=== PATIENT | female | born 1955 | race Caucasian/White ===

== ENCOUNTER → 2020-12-11 12:33 | Outpatient (BNVA) | payer MEDICARE, OTHER, SELFPAY | PROVIDERS: PCP Physician Assistant; Visit Provider Orthopaedic Surgery | DX: M76.31 Iliotibial band syndrome, right leg (principal) | CPT/HCPCS: 99202 ==

== ENCOUNTER 2020-12-13 11:20 | Outpatient (REF) | payer MEDICARE, BC, OTHER, SELFPAY ==
--- NOTE | ~2020-12-13 | US_ITS ---
EXAMINATION: US RETROPERITONEAL LIMITED (RENAL ONLY) CLINICAL INFORMATION: Renal stone. COMPARISON: Ultrasound renal 06/13/2020 and 05/16/2020. X-ray KUB 05/31/2020 and 04/26/2020. CT abdomen pelvis 10/25/2019. TECHNIQUE: Real-time imaging of the kidneys. FINDINGS: RIGHT KIDNEY: 10.2 x 4.8 x 5.9 cm (SAG x AP x TRV). The kidney is normal in size, contour, and echogenicity. Renal cortical thickness is normal. No calculi or focal parenchymal lesions. No hydronephrosis. LEFT KIDNEY: 10.0 x 5.2 x 4.4 cm (SAG x AP x TRV). The kidney is normal in size, contour, and echogenicity. Renal cortical thickness is normal. No focal parenchymal lesions or hydronephrosis. There is an echogenic stone midpole measuring 0.5 x 0.3 x 0.6 cm. There is mild caliectasis. US/US renal BI IMPRESSION: Small echogenic stone midpole left kidney measuring 0.6 cm. Mild caliectasis.
== END 2020-12-13 11:21 | disposition home or self-care (01) ==
LOC: HO.US 11:20
PROVIDERS: Visit Provider Urology
DX: N20.0 Calculus of kidney (principal)
CPT/HCPCS: 76775

== ENCOUNTER → 2020-12-26 11:10 | Outpatient (BNVA) | payer MEDICARE, OTHER, SELFPAY | PROVIDERS: Visit Provider Urology | DX: Z13.89 Encounter for screening for other disorder (principal) | CPT/HCPCS: 99212 ==

== ENCOUNTER 2020-12-28 09:00 | Outpatient (RCR) | payer MEDICARE, BC, OTHER, SELFPAY | END 2021-01-22 08:19 | disposition other institution (70) | LOC: HO.PTWFD 09:00 | PROVIDERS: PCP Physician Assistant; Visit Provider Orthopaedic Surgery | DX: M76.31 Iliotibial band syndrome, right leg (principal) | CPT/HCPCS: 97110; 97140; 97161; 97530; 97535 ==

== ENCOUNTER 2021-01-17 06:05 | Day surgery (SDC) | payer MEDICARE, BC, OTHER, SELFPAY ==
[2021-01-11 13:37] VITALS: BMI 27.4
--- NOTE | 2021-01-16 10:56 | HO.ANESPROP2 ---
Documented by User: Shannon Johnson 01/16/21 10:58 HPI - Anesthesia Eval Consult details Narrative: 65yo F for L ESWL Last ESWL 05/2020 with DEISY LOO Active Problems Active Problems: All Active Problems (Updated 01/11/21 @ 13:33 by Trina Bailey) Renal stones (Acute) Iliotibial band syndrome, right leg (Acute) Past Medical History Medical History Arthritis History of ARDS History of kidney stones Iliotibial band syndrome, right leg Osteoarthritis of right patellofemoral joint Renal stones Restless leg syndrome Retained ureteral stent Family History Family History Father No problems noted. Mother No problems noted. Surgical History Surgical History History of cholecystectomy Hx of colonoscopy Hx of left breast biopsy Hx of lithotripsy Social History Social History Smoking Status: Former smoker Smoking Quit Date: Years ago Use of substances other than those prescribed or required for medical reasons: No Advance Directives: No Advance Directives Information Provided: No Advance Directives on File: No Recently lost weight without trying: No Current occupational status: retired [employer] Allergies Allergy/AdvReac Type Severity Reaction Status Date / Time No Known Allergies Allergy Unverified 01/11/21 13:35 [No Known Allergies*] Home Medications Medication Instructions Recorded Confirmed Last Taken Type pregabalin 25 mg capsule 25 mg PO BEDTIME 12/11/20 01/11/21 Unknown History pregabalin 75 mg capsule 75 mg PO BID 12/26/20 01/11/21 Unknown History Exam Exam Date and Time: January 16, 2021 1056 Height,Weight and Vital Signs: Height 5 ft 4 in Weight 72.575 kg Assessment and Plan Assessment Anesthesia Assessment: Chart Reviewed Documented by User: Deysi Nicholas 01/17/21 06:57 [facility] Past Medical History Medical History Arthritis History of ARDS History of kidney stones Iliotibial band syndrome, right leg Osteoarthritis of right patellofemoral joint Renal stones Restless leg syndrome Retained ureteral stent Family History Family History Father No problems noted. Mother No problems noted. Surgical History Surgical History History of cholecystectomy Hx of colonoscopy Hx of left breast biopsy Hx of lithotripsy Social History Social History Smoking Status: Former smoker Smoking Quit Date: Years ago Use of substances other than those prescribed or required for medical reasons: No Advance Directives: No Advance Directives Information Provided: No Advance Directives on File: No Recently lost weight without trying: No Current occupational status: retired Meds Allergies Allergy/AdvReac Type Severity Reaction Status Date / Time No Known Allergies Allergy Unverified 01/11/21 13:35 [No Known Allergies*] Home Medications Medication Instructions Recorded Confirmed Last Taken Type pregabalin 25 mg capsule 25 mg PO BEDTIME 12/11/20 01/11/21 Unknown History pregabalin 75 mg capsule 75 mg PO BID 12/26/20 01/11/21 Unknown History Exam Airway Mallampati Class: II TM Dist: >3cm Neck ROM: Full Assessment and Plan Assessment Anesthesia Assessment: Anesthesia Plan Discussed and Chart Reviewed Final Anesthetic Review NPO: Yes ASA Class: II Final Preanesthetic Review: No Changes in Pt Med Stat, Meds/Allgs Chart Reviewed, Consent Obtained/Reviewed and Anes Risks/Benef Reviewed Patient Risk: Low Procedure Risk: Low Anesthetic Plan Anesthetic Plan: MAC: Disposition: Standard PACU
--- NOTE | ~2021-01-17 | XR_ITS ---
EXAMINATION: XR ABDOMEN KUB CLINICAL INDICATION: Nephrolithiasis COMPARISON: 05/31/2020 and 12/13/2020 TECHNIQUE: AP view of the abdomen. FINDINGS: There is a 0.5 cm calcification overlying the midpole of the left kidney. This corresponds to the appearance on ultrasound. Right upper quadrant surgical clips. Nonobstructive bowel gas pattern. Phleboliths overlie the pelvis. Degenerative changes throughout the spine. XR/XR KUB IMPRESSION: 0.5 cm calcification over the mid pole of the left kidney corresponding to the appearance of the calculus on prior.
[2021-01-17 06:34] VITALS: BP 135/75; PULSE 64; RESP 20; TEMP 36.3; O2SAT 96
[2021-01-17] MEDS: Lactated Ringers 1,000 ML 100 ML IVCONT (06:40)
--- NOTE | 2021-01-17 07:36 | MHC.SHP ---
Pre-Procedural Eval Section A The patient is an INPATIENT: No Changes since office visit: No Cold of Flu in the past 2 weeks, No New Medical Problems, No Changes in Medication and No Patient answered all questions The History & Physical has been completed within 30 days and I have reviewed it.: Yes Section B Chief Complaint: kidney stone Allergies: Allergies Allergy/AdvReac Type Severity Reaction Status Date / Time No Known Allergies Allergy Unverified 01/11/21 13:35 [No Known Allergies*] Plan Diagnosis/Plan: Unchanged (Left ESWL ) I have reviewed the history and physical and performed a pertinent physical examination on my patient. No changes have occurred unless specified.
--- NOTE | 2021-01-17 07:45 | W.PM.OPN ---
Operative Note Operative Note Date of Service: 01/17/21 Narrative: PreOperative Diagnosis: Left Renal stones Post Operative Diagnosis: Renal stones Procedure: Left ESWL Surgeon: Dr Gilles Banks Anesthesia: mac/sedation Indications for procedure: They understand ESWL may be a staged procedure and subsequent intervention may be required based on imaging after ESWL. They also understand there is a risk of bleeding, infection, damage to adjacent organs. Procedure: After informed consent was verified the patient was brought to the operating room and placed in a supine position. Anesthesia was performed per protocol. Safety pause time-out was performed. Imaging was in the room and laterality confirmed. US confirmed stone on left side ESWL was performed. The 1st 500 shocks were performed at 60 hertz. These were performed with increasing power. Once maximum power was reached the rate was increased to 180 hertz. A total of 2500 shocks were given. Fluoroscopy showed stone disintegration. They tolerated procedure well and was transferred to the recovery area upon completion.
[2021-01-17 08:14] VITALS: BP 126/69; PULSE 58; RESP 16; TEMP 36.2; O2SAT 96
[2021-01-17 08:30] VITALS: BP 138/78; PULSE 54; RESP 16; TEMP 36.2; O2SAT 97
[2021-01-17] MEDS: Acetaminophen 325 MG TABLET 650 MG PO (08:38)
[2021-01-17] MEDS: Phenazopyridine HCL 100 MG TABLET PO (08:39)
== END 2021-01-17 09:30 | disposition home or self-care (01) ==
PROVIDERS: PCP Physician Assistant; Visit Provider Urology
PROC: (CPT 50590; principal; 2021-01-17 07:30)
DX: N20.0 Calculus of kidney (principal); Z87.442 Personal history of urinary calculi; Z96.0 Presence of urogenital implants; M76.31 Iliotibial band syndrome, right leg; Z87.891 Personal history of nicotine dependence; Z79.899 Other long term (current) drug therapy
CPT/HCPCS: 50590; 74018; J1885; J2405; J3010

== ENCOUNTER 2021-02-01 10:04 | Outpatient (REF) | payer MEDICARE, BC, OTHER, SELFPAY ==
--- NOTE | ~2021-02-01 | US_ITS ---
EXAMINATION: US RETROPERITONEAL LIMITED (RENAL ONLY) CLINICAL INFORMATION: Calculus of kidney. COMPARISON: KUBs dated 01/17/2021 and 05/31/2020. Renal ultrasound dated 12/13/2020. Renals only ultrasound dated 06/13/2020. CT abdomen and pelvis without contrast dated 10/25/2019. TECHNIQUE: Real-time imaging of the kidneys. FINDINGS: RIGHT KIDNEY: 10.4 x 5.1 x 7.0 cm (SAG x AP x TRV). The kidney is normal in size, contour, and echogenicity. Renal cortical thickness is normal. No calculi or focal parenchymal lesions. No hydronephrosis. LEFT KIDNEY: 10.0 x 4.6 x 4.9 cm (SAG x AP x TRV). The kidney is normal in size, contour, and echogenicity. Renal cortical thickness is normal. There is a 5 mm nonobstructing mid pole calculus and a 2 mm nonobstructing lower pole calculus. There is mild caliectasis without hydronephrosis, unchanged. US/US renal BI IMPRESSION: Tiny nonobstructing calculi of the left kidney. Unchanged caliectasis of the left kidney.
== END 2021-02-01 10:05 | disposition home or self-care (01) ==
LOC: HO.US 10:04
PROVIDERS: Visit Provider Urology
DX: N20.0 Calculus of kidney (principal)
CPT/HCPCS: 76775

== ENCOUNTER → 2021-02-07 08:54 | Outpatient (BNVA) | payer MEDICARE, BC, OTHER, SELFPAY | PROVIDERS: PCP Physician Assistant; Visit Provider Urology | DX: N20.0 Calculus of kidney (principal) | CPT/HCPCS: Q3014 ==

== ENCOUNTER 2021-06-06 06:57 | Outpatient (REF) | payer MEDICARE, BC, OTHER, SELFPAY ==
[2021-06-06 08:59] LABS: Hematocrit 39.4 % (37-47); Hemoglobin 12.9 g/dl (12.0-16.0); Mean Corpuscular HGB Conc 32.7 g/dl (31.0-35.0); Mean Corpuscular Hemoglobin 29.6 pg (27.0-33.0); Mean Corpuscular Volume 90.4 fL (80-98); Mean Platelet Volume 11.1 fL (9.4-12.3); Platelet Count 327 X10*3/uL (160-400); Red Blood Count 4.36 X10*6/uL (4.20-5.50); Red Cell Distribution Width 13.1 % (11.0-16.0); White Blood Count 7.2 X10*3/uL (4.8-10.8)
[2021-06-06 09:33] LABS: Alanine Aminotransferase 26 U/L (0-31); Albumin Level 4.3 g/dL (3.5-5.0); Alkaline Phosphatase 104 U/L (39-117); Anion Gap 12 (12-20); Aspartate Amino Transferase 21 U/L (5-31); Bilirubin Total 0.4 mg/dL (0.0-1.0); Blood Urea Nitrogen 20 mg/dL (9-16); Calcium 9.6 mg/dL (8.4-10.2); Carbon Dioxide 28 mmol/L (22-29); Chloride 106 mmol/L (96-108); Cholesterol 214 mg/dL; Estimated Glomerular Filt Rate > 60; Glucose Fasting 93 mg/dL (60-99); HDL Cholesterol 64 mg/dL; LDL Cholesterol Calculated 127 mg/dl; Potassium 4.6 mmol/L (3.3-5.1); Sodium 141 mmol/L (135-145); Triglycerides 119 mg/dL
[2021-06-06 10:03] LABS: TSH reflex Free T4 1.82 uIU/mL (0.32-4.0)
[2021-06-06 10:04] LABS: Estimated Average Glucose 100 mg/dL; Hemoglobin A1c % 5.1 %
== END 2021-06-06 06:58 | disposition home or self-care (01) ==
LOC: HO.LAB 06:57
PROVIDERS: PCP Physician Assistant; Visit Provider Physician Assistant
DX: Z12.11 Encounter for screening for malignant neoplasm of colon (principal); Z13.220 Encounter for screening for lipoid disorders; Z13.29 Encounter for screening for other suspected endocrine disorder; I10 Essential (primary) hypertension
CPT/HCPCS: 36415; 80053; 80061; 83036; 84443; 85027

== ENCOUNTER 2021-06-22 09:41 | Outpatient (REF) | payer MEDICARE, BC, OTHER, SELFPAY ==
--- NOTE | ~2021-06-22 | MM_ITS ---
EXAMINATION: BONE DENSITOMETRY CLINICAL INDICATION: Menopause. COMPARISON: This is the patient's baseline examination. TECHNIQUE: Using a [employer] DXA System (software version: 13.1) manufactured by [employer], dual-energy x-ray absorptiometry was performed of the lumbar spine and left hip. The images are of good technical quality. Summary results are attached. FINDINGS: AP SPINE L1-L2 (excluding L3 and L4): The data of L1-L4 has been changed to exclude the L3 and L4 vertebral bodies, because degenerative changes at these levels may cause overestimation of lumbar spine density. BMD 1.146 g/cm2, Z-score 1.3, T-score -0.2, normal. LEFT FEMUR, NECK: BMD 0.792 g/cm2, Z-score -0.3, T-score -1.8, osteopenia. LEFT FEMUR, TOTAL: BMD 0.813 g/cm2, Z-score -0.3, T-score -1.5, osteopenia. IDENTIFIED RISK FACTORS: Menopause, height loss, osteoporosis. HISTORY OF FRACTURE: None listed. MEDICATIONS: None listed. MM/XR DEXA axial skeleton IMPRESSION: 1. DIAGNOSIS: Osteopenia based on the lowest T-score value of -1.8 in the femoral neck applying World Health Organization criteria. 2. 10-YEAR FRACTURE RISK PREDICTION, FRAX: Major osteoporotic fracture (clinical spine, forearm, hip or shoulder) 10.3%. Hip fracture 1.5%. 3. Treatment Recommendations: NOF guidelines recommend consideration for treatment in postmenopausal women and men age 50 and older presenting with the following: -A hip or vertebral (clinical or morphometric) fracture. -T-score less than or equal to -2.5 at the femoral neck or spine after appropriate evaluation to exclude secondary causes. -Low bone mass at the hip or spine and a 10-year fracture probability by FRAX of greater than or equal to 3% for hip fracture or greater than or equal to 20% for major osteoporotic fracture based on the [place] adapted WHO algorithm. 4. Other Recommendations: All treatment decisions require clinical judgment and consideration of individual patient factors, including patient preferences, comorbidities, previous drug use, risk factors not captured in the FRAX model (e.g. frailty, falls, vitamin D deficiency, increased bone turnover, interval significant decline in bone density) and possible under or overestimation of fracture risk by FRAX. Additional medical evaluation for secondary cause of low bone mineral density may be appropriate. FUTURE SCAN RECOMMENDATION: People with diagnosed cases of osteoporosis or at high risk for fracture should have regular bone mineral density tests. For patients eligible for Medicare, routine testing is allowed once every 2 years. The testing frequency can be increased to one year for patients who have rapidly progressing disease, those who are receiving or discontinuing medical therapy to restore bone mass, or have additional risk factors.
== END 2021-06-22 09:42 | disposition home or self-care (01) ==
LOC: HO.MAMMO 09:41
PROVIDERS: PCP Physician Assistant; Visit Provider Physician Assistant
DX: Z13.820 Encounter for screening for osteoporosis (principal); M85.80 Other specified disorders of bone density and structure, unspecified site; Z78.0 Asymptomatic menopausal state
CPT/HCPCS: 77080

== ENCOUNTER 2021-07-11 07:31 | Outpatient (REF) | payer MEDICARE, BC, OTHER, SELFPAY ==
--- NOTE | ~2021-07-11 | XR_ITS ---
EXAMINATION: XR CHEST CLINICAL INFORMATION: Cough. COMPARISON: None TECHNIQUE: 2 views of the chest were obtained. FINDINGS: The lungs are well-expanded and clear of acute process. The heart size and pulmonary vascularity is normal. No gross bony abnormality seen except from mild dextroscoliosis mid dorsal spine. XR/XR chest 2V IMPRESSION: No acute cardiopulmonary process seen.
== END 2021-07-11 07:32 | disposition home or self-care (01) ==
LOC: HO.XRAY 07:31
PROVIDERS: PCP Physician Assistant; Visit Provider Physician Assistant
DX: U07.1 COVID-19 (principal); R05 Cough
CPT/HCPCS: 71046

== ENCOUNTER 2021-09-03 15:28 | Outpatient (REF) | payer MEDICARE, BC, OTHER, SELFPAY ==
--- NOTE | ~2021-09-03 | US_ITS ---
EXAMINATION: US SOFT TISSUE HEAD/NECK CLINICAL INFORMATION: Localized swelling, mass and lump, head. COMPARISON: None TECHNIQUE: Linear transducer de jesus-scale and color Doppler examination with attention to the region of the right forehead using a linear transducer. FINDINGS: No solid or cystic soft tissue abnormality is seen corresponding to palpable lesion. There is contour irregularity of the outer table of the skull in this region. US/US soft tiss head and/or neck IMPRESSION: No soft tissue abnormality seen. Focal contour irregularity of the outer table of the skull in this region.
== END 2021-09-03 15:29 | disposition home or self-care (01) ==
LOC: HO.US 15:28
PROVIDERS: PCP Physician Assistant; Visit Provider Nurse Practitioner Family
DX: R22.0 Localized swelling, mass and lump, head (principal)
CPT/HCPCS: 76536

== ENCOUNTER 2021-09-17 14:24 | Outpatient (REF) | payer MEDICARE, BC, OTHER, SELFPAY ==
--- NOTE | ~2021-09-17 | CT_ITS ---
CT FACIAL BONES WITHOUT IV CONTRAST CLINICAL INFORMATION: LOCALIZED SWELLING, MASS AND LUMP COMPARISON: None available. TECHNIQUE: CT acquisition of the maxillofacial region obtained without contrast. This CT examination was performed using dose optimization techniques as appropriate, variously including the following: *Automated exposure control *Adjustment of mA and/or kV according to patient size (this includes techniques or standardized protocols for targeted exams where dose is matched to indication/reason for exam; i.e. extremities or head) *Use of iterative reconstruction technique FINDINGS: The maxillary sinuses, sphenoid sinuses, ethmoid air cells, and frontal sinuses are clear. 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 Significant leftward deviation of the nasal septum with a leftward directed septal spur. Fovea ethmoidalis and olfactory grooves share a contiguous slope. The bony orbits are intact. A palpable marker has been placed on the anterior right frontal scalp where there is a small 4 mm sessile osteoma associated with the outer cortical table of the right frontal calvarium. Mastoid air cells and middle ear cavities are clear. The TMJs are unremarkable. There is no periapical disease. There are no significant soft tissue findings. CT/CT facial bones wo con IMPRESSION: - A palpable marker has been placed on the anterior right frontal scalp where there is a small 4 mm sessile osteoma associated with the outer cortical table of the right frontal calvarium. - Significant leftward deviation of the nasal septum with a leftward directed septal spur. - Partially imaged cervical spondylosis.
== END 2021-09-17 14:25 | disposition home or self-care (01) ==
LOC: HO.CT 14:24
PROVIDERS: PCP Physician Assistant; Visit Provider Nurse Practitioner Family
DX: D16.4 Benign neoplasm of bones of skull and face (principal); J34.2 Deviated nasal septum
CPT/HCPCS: 70486

== ENCOUNTER 2021-10-15 08:53 | Outpatient (REF) | payer MEDICARE, BC, OTHER, SELFPAY ==
--- NOTE | ~2021-10-15 | US_ITS ---
EXAMINATION: US RETROPERITONEAL LIMITED (RENAL ONLY) CLINICAL INFORMATION: Cyst of kidney. COMPARISON: Bilateral renal ultrasound dated 02/01/2021 and 12/13/2020. KUB dated 01/17/2021 and 05/31/2020. CT abdomen and pelvis without contrast dated 10/25/2019. TECHNIQUE: Real-time imaging of the kidneys. FINDINGS: RIGHT KIDNEY: 10.5 x 5.4 x 4.8 cm (SAG x AP x TRV). The kidney is normal in size, contour, and echogenicity. Renal cortical thickness is normal. No calculi or focal parenchymal lesions. No hydronephrosis. LEFT KIDNEY: 8.1 x 4.6 x 4.6 cm (SAG x AP x TRV). The kidney is normal in size, contour, and echogenicity. There is left renal cortical thinning or scarring. There are multiple left renal stones. The largest measure 4 mm in the mid and lower pole. No focal parenchymal lesions. There may be mild caliectasis similar to previous exam. US/US renal BI IMPRESSION: Left renal stones. Left renal cortical thinning or scarring and mild caliectasis similar to previous exam.
== END 2021-10-15 08:54 | disposition home or self-care (01) ==
LOC: HO.US 08:53
PROVIDERS: Visit Provider Urology
DX: N20.0 Calculus of kidney (principal)
CPT/HCPCS: 76775

== ENCOUNTER → 2021-11-05 08:28 | Outpatient (BNVA) | payer MEDICARE, BC, OTHER, SELFPAY | PROVIDERS: PCP Physician Assistant | DX: N20.0 Calculus of kidney (principal) | CPT/HCPCS: Q3014 ==

== ENCOUNTER 2022-01-09 12:30 | Outpatient (REF) | payer MEDICARE, BC, OTHER, SELFPAY ==
--- NOTE | ~2022-01-09 | US_ITS ---
EXAMINATION: US RETROPERITONEAL LIMITED (RENAL ONLY) CLINICAL INFORMATION: Calculus of kidney. COMPARISON: US retroperitoneal limited (renal only) 10/15/2021 and 02/01/2021. XR abdomen KUB 01/17/2021 and 05/31/2020. CT abdomen and pelvis without contrast 10/25/2019. TECHNIQUE: Real-time imaging of the kidneys. FINDINGS: RIGHT KIDNEY: 9.2 x 5.1 x 4.9 cm (SAG x AP x TRV). The kidney is normal in size, contour, and echogenicity. Renal cortical thickness is normal. No calculi or focal parenchymal lesions. No hydronephrosis. LEFT KIDNEY: 10.1 x 4.7 x 3.4 cm (SAG x AP x TRV). The kidney is normal in size, contour, and echogenicity. Renal cortical thickness is normal. No focal parenchymal lesions or hydronephrosis. There are multiple echogenic cyst nonobstructive stones. 1. Midpole stone measures 0.42 x 0.22 x 0.48 cm. 2. Lower pole stone measures 0.37 x 0.30 0 x 0.24 cm. 3. Stone in midpole measures 0.29 x 0.10 cm. 4. Echogenic stone in the midpole measures 0.66 x 0.65 x 0.56 cm. US/US renal BI IMPRESSION: There are multiple echogenic stones in the left kidney without caliectasis or hydronephrosis. The right kidney is unremarkable.
== END 2022-01-09 12:31 | disposition home or self-care (01) ==
LOC: HO.US 12:30
DX: N20.0 Calculus of kidney (principal)
CPT/HCPCS: 76775

== ENCOUNTER → 2022-02-04 08:57 | Outpatient (BNVA) | payer MEDICARE, BC, OTHER, SELFPAY | PROVIDERS: PCP Physician Assistant | DX: N20.0 Calculus of kidney (principal) | CPT/HCPCS: 99212 ==

== ENCOUNTER 2022-05-07 07:23 | Outpatient (REF) | payer MEDICARE, BC, OTHER, SELFPAY ==
[2022-05-07 07:57] LABS: Hematocrit 40.9 % (37.0-47.0); Hemoglobin 13.6 g/dl (12.0-16.0); Mean Corpuscular HGB Conc 33.3 g/dl (31.0-35.0); Mean Corpuscular Hemoglobin 29.9 pg (27.0-33.0); Mean Corpuscular Volume 89.9 fL (80.0-98.0); Mean Platelet Volume 10.7 fL (9.4-12.3); Platelet Count 315 X10*3/uL (160-400); Red Blood Count 4.55 X10*6/uL (4.20-5.50); Red Cell Distribution Width 12.9 % (11.0-16.0); White Blood Count 7.1 X10*3/uL (4.8-10.8)
[2022-05-07 08:14] LABS: Alanine Aminotransferase 21 U/L (0-31); Albumin Level 4.2 g/dL (3.5-5.0); Alkaline Phosphatase 95 U/L (39-117); Anion Gap 13 (12-20); Aspartate Amino Transferase 21 U/L (5-31); Bilirubin Total 0.4 mg/dL (0.0-1.0); Blood Urea Nitrogen 18 mg/dL (9-16); Calcium 9.1 mg/dL (8.4-10.2); Carbon Dioxide 23 mmol/L (22-29); Chloride 109 mmol/L (96-108); Cholesterol 206 mg/dL; Estimated Glomerular Filt Rate > 60; Glucose Fasting 93 mg/dL (60-99); HDL Cholesterol 55 mg/dL; LDL Cholesterol Calculated 121 mg/dl; Potassium 4.6 mmol/L (3.3-5.1); Sodium 140 mmol/L (135-145); Total Protein 6.9 g/dL (6.5-8.0); Triglycerides 150 mg/dL
[2022-05-07 08:56] LABS: Urine Cytology See Pathology rpt
== END 2022-05-07 07:24 | disposition home or self-care (01) ==
LOC: HO.LAB 07:23
PROVIDERS: PCP Physician Assistant; Visit Provider Physician Assistant
DX: Z13.29 Encounter for screening for other suspected endocrine disorder (principal); R31.9 Hematuria, unspecified; E78.1 Pure hyperglyceridemia
CPT/HCPCS: 36415; 80053; 80061; 84443; 85027; 88112

== ENCOUNTER 2022-05-10 11:53 | Outpatient (REF) | payer MEDICARE, BC, OTHER, SELFPAY ==
--- NOTE | ~2022-05-10 | XR_ITS ---
EXAMINATION: XR CERVICAL SPINE CLINICAL INFORMATION: Muscular strain. COMPARISON: Radiograph of the cervical spine 04/20/2016. TECHNIQUE: 3 views of the cervical spine were obtained. FINDINGS: Nonspecific straightening of the normal cervical lordosis. Minimal anterolisthesis of C2 on C3 and C3 on C4, unchanged. Otherwise, anatomic alignment. No acute compression deformity. The atlantoaxial and atlantooccipital articulations are maintained. Moderate multilevel cervical spondylosis leading to variously degrees of neural foraminal encroachment, progressed since 2016. No prevertebral soft tissue thickening. Imaged lung apices are clear. XR/XR cervical spine 4V IMPRESSION: No acute fracture or subluxation. Similar straightening of the cervical lordosis and mild anterolisthesis when compared to 2016. Progression of cervical spondylosis when compared to 2016. If indicated, correlation with an MR of the cervical spine could be obtained to further assess for nerve root impingement and canal narrowing.
== END 2022-05-10 11:54 | disposition home or self-care (01) ==
LOC: HO.XRAY 11:53
PROVIDERS: PCP Physician Assistant; Visit Provider Physician Assistant
DX: S16.1XXD Strain of muscle, fascia and tendon at neck level, subsequent encounter (principal)
CPT/HCPCS: 72050

== ENCOUNTER 2022-07-16 09:55 | Outpatient (REF) | payer MEDICARE, BC, OTHER, SELFPAY ==
--- NOTE | ~2022-07-16 | US_ITS ---
EXAMINATION: US RETROPERITONEAL LIMITED (RENAL ONLY) CLINICAL INFORMATION: Calculus of kidney. COMPARISON: Renal ultrasound 01/09/2022 and 10/15/2021. X-ray abdomen KUB 01/17/2021. CT abdomen and pelvis 10/25/2019. TECHNIQUE: Real-time imaging of the kidneys. FINDINGS: RIGHT KIDNEY: 10.4 x 4.8 x 5.2 cm (SAG x AP x TRV). The kidney is normal in size, contour, and echogenicity. Renal cortical thickness is normal. No calculi or focal parenchymal lesions. No hydronephrosis. LEFT KIDNEY: 9.4 x 4.7 x 3.6 cm (SAG x AP x TRV). The kidney is normal in size, contour, and echogenicity. There is left renal cortical thinning or scarring in the midpole that appears unchanged. There are 2 stones measuring 6 x 2 x 3 mm in the midpole and 2 mm in the upper pole. No focal parenchymal lesions or hydronephrosis. US/US renal BI IMPRESSION: Left renal stones. Normal right kidney.
== END 2022-07-16 09:56 | disposition home or self-care (01) ==
LOC: HO.US 09:55
DX: N20.0 Calculus of kidney (principal)
CPT/HCPCS: 76775

== ENCOUNTER → 2022-08-07 09:52 | Outpatient (BNVA) | payer MEDICARE, BC, OTHER, SELFPAY | PROVIDERS: PCP Physician Assistant; Visit Provider Urology | DX: N20.0 Calculus of kidney (principal) | CPT/HCPCS: Q3014 ==

== ENCOUNTER → 2022-10-21 08:20 | Outpatient (REF) | payer MEDICARE, BC, OTHER, SELFPAY ==
--- NOTE | 2022-10-21 08:26 | CA_ITS ---
Acquisition Time: 2022-10-21 08:36:45 Total Exercise Time: 00:05:01 Test Indications: CHEST PAIN Medications: Protocol: LUBA Max HR: 162 BPM 107% of Pred: 151 BPM Max BP: 158/072 mmHG Max Work Load: 7.0 METS Exercise stress test with Exercise 5 min 1 sec of Luba protocol, achieving 107% MPHR, 7 METs, with mild sob, no chest discomfort, with isolated PVCs and PACs, with normotensive response to exercise, without EKG changes meeting criteria for ischemia.Test reviewed with Dr Boyd Referred By: Francesco Mcdonough Overread By: MARI FARRAR
== END ==
LOC: HO.CARD 08:20
PROVIDERS: PCP Physician Assistant; Visit Provider Physician Assistant
DX: R07.9 Chest pain, unspecified (principal)
CPT/HCPCS: 93017

== ENCOUNTER 2022-10-30 11:35 | Outpatient (REF) | payer MEDICARE, BC, OTHER, SELFPAY ==
--- NOTE | ~2022-10-30 | XR_ITS ---
EXAMINATION: XR ABDOMEN KUB CLINICAL INDICATION: Renal calculus. COMPARISON: Renal ultrasound dated 07/16/2022; KUB dated 01/17/2021. TECHNIQUE: 2 AP views of the abdomen and pelvis are submitted. FINDINGS: The bowel gas pattern is normal, with no evidence of ileus or obstruction. The previously demonstrated 5 mm left renal calculus is faintly redemonstrated, with imaging significantly limited by overlapping bowel contents. There are right upper quadrant surgical clips. No acute osseous abnormality is seen. There is a mild thoracolumbar levoscoliosis. XR/XR KUB IMPRESSION: The previously demonstrated 5 mm left renal calculus is faintly redemonstrated, with imaging significantly limited by overlapping bowel contents.
== END 2022-10-30 11:36 | disposition home or self-care (01) ==
LOC: HO.XRAY 11:35
PROVIDERS: PCP Physician Assistant; Visit Provider Urology
DX: N20.0 Calculus of kidney (principal)
CPT/HCPCS: 74018

== ENCOUNTER → 2022-11-06 08:40 | Outpatient (BNVA) | payer MEDICARE, BC, OTHER, SELFPAY | PROVIDERS: PCP Physician Assistant; Visit Provider Urology | DX: N20.0 Calculus of kidney (principal) | CPT/HCPCS: Q3014 ==

== ENCOUNTER → 2022-11-18 08:04 | Outpatient (BNVA) | payer MEDICARE, BC, OTHER, SELFPAY | PROVIDERS: PCP Physician Assistant; Referring Provider Physician Assistant; Visit Provider Physician Assistant | DX: Z01.818 Encounter for other preprocedural examination (principal); K21.9 Gastro-esophageal reflux disease without esophagitis; Z79.899 Other long term (current) drug therapy | CPT/HCPCS: 99202 ==

== ENCOUNTER 2022-12-11 06:27 | Day surgery (SDC) | payer MEDICARE, BC, OTHER, SELFPAY ==
[2022-12-06 12:50] VITALS: BMI 25.5
--- NOTE | 2022-12-10 12:23 | P.CONAN_ITS ---
Documented by User: Shannon Johnson NP 12/10/22 12:35 HPI - Anesthesia Eval Consult details Narrative: 67yo F for Left ESWL s/p ESWL 01/2021 with [facility] Active Problems Active Problems: All Active Problems (Updated 12/06/22 @ 12:50 by Emely Pemberton RN) RLS (restless legs syndrome) (Acute) Cough (Acute) Head lump (Acute) Screening for diabetes mellitus (DM) (Acute) Screening for hypothyroidism (Acute) Cervical myofascial strain (Acute) Kidney stone on left side (Acute) Screening for colon cancer (Acute) Adult general medical exam (Acute) Chest pain (Acute) GERD (gastroesophageal reflux disease) (Acute) Hypertriglyceridemia (Acute) Renal stones (Acute) Iliotibial band syndrome, right leg (Acute) Past Medical History Medical History (Updated 12/06/22 @ 12:50 by Emely Pemberton RN) Allergic rhinitis COVID-19 History of ARDS History of kidney stones Hypertriglyceridemia Iliotibial band syndrome, right leg Osteoarthritis of right patellofemoral joint Preop exam for internal medicine Renal stones Restless leg syndrome Retained ureteral stent Family History Family History Father No problems noted. Mother No problems noted. Surgical History Surgical History (Updated 12/06/22 @ 12:44 by Emely Pemberton RN) History of cholecystectomy Hx of colonoscopy Hx of left breast biopsy Hx of lithotripsy Social History Social History Housing: House Alcohol intake: current Patient Tobacco Use Status: Former Tobacco user Years Smoked: quit 1999 e-Cigarette/Vaping Use: Never Used Use of substances other than those prescribed or required for medical reasons: No Are you DNR?: No Advance Directives: No Advance Directives Information Provided: Yes Recently lost weight without trying: No Nutrition Risks: No Nutritional Risk service: No Current occupational status: retired Cognitive needs: No Hearing needs: No Vision needs: No Meds Allergies Allergy/AdvReac Type Severity Reaction Status Date / Time No Known Allergies Allergy Verified 11/18/22 08:13 [No Known Allergies*] Home Medications Medication Instructions Recorded Confirmed Last Taken Type acetaminophen 325 mg capsule 325 mg PO QID PRN Pain 06/19/21 12/06/22 Unknown History (Tylenol) diclofenac sodium 1 % topical gel 4 g topical QID 11/18/22 12/06/22 Unknown History omeprazole 20 mg capsule,delayed 20 mg PO DAILY 12/11/22 12/11/22 12/11/22 History release Exam Exam Date and Time: December 10, 2022 1223 Height,Weight and Vital Signs: Height 5 ft 4 in Weight 67.585 kg Pertinent Lab Results Pertinent Lab Results: Laboratory Tests 05/07/22 05/07/22 07:38 07:38 WBC 7.1 Hgb 13.6 Hct 40.9 Plt Count 315 Sodium 140 Potassium 4.6 Chloride 109 H Carbon Dioxide 23 BUN 18 H Creatinine 0.90 Narrative Narrative: Stress 10/2022 Protocol: DELON ? Max HR: 162 BPM? 107% of? Pred: 151 BPM Max BP: 158/072 mmHG Max Work Load: 7.0 METS ? Exercise stress test with Exercise 5 min 1 sec of Delon protocol, achieving 107% ?MPHR, 7 METs, with mild sob, no chest discomfort, with isolated PVCs and PACs, ?with normotensive response to exercise, without EKG changes meeting criteria ?for ischemia.Test reviewed with Dr Boyd Assessment and Plan Assessment Anesthesia Assessment: Chart Reviewed Documented by User: Lonnie Rosenberg MD 12/11/22 07:44 [facility] Past Medical History Medical History (Updated 12/06/22 @ 12:50 by Emely Pemberton RN) Allergic rhinitis COVID-19 History of ARDS History of kidney stones Hypertriglyceridemia Iliotibial band syndrome, right leg Osteoarthritis of right patellofemoral joint Preop exam for internal medicine Renal stones Restless leg syndrome Retained ureteral stent Family History Family History Father No problems noted. Mother No problems noted. Family history of problems with anesthesia: No Surgical History Surgical History (Updated 12/06/22 @ 12:44 by Emely Pemberton RN) History of cholecystectomy Hx of colonoscopy Hx of left breast biopsy Hx of lithotripsy History of Problems with Anesthesia: No Social History Social History Housing: House Alcohol intake: current Patient Tobacco Use Status: Former Tobacco user Years Smoked: quit 1999 e-Cigarette/Vaping Use: Never Used Use of substances other than those prescribed or required for medical reasons: No Are you DNR?: No Advance Directives: No Advance Directives Information Provided: Yes Recently lost weight without trying: No Nutrition Risks: No Nutritional Risk service: No Current occupational status: retired Cognitive needs: No Hearing needs: No Vision needs: No Meds Allergies Allergy/AdvReac Type Severity Reaction Status Date / Time No Known Allergies Allergy Verified 11/18/22 08:13 [No Known Allergies*] Home Medications Medication Instructions Recorded Confirmed Last Taken Type acetaminophen 325 mg capsule 325 mg PO QID PRN Pain 06/19/21 12/06/22 Unknown History (Tylenol) diclofenac sodium 1 % topical gel 4 g topical QID 11/18/22 12/06/22 Unknown History omeprazole 20 mg capsule,delayed 20 mg PO DAILY 12/11/22 12/11/22 12/11/22 History release Exam Airway Mallampati Class: II Loose/Missing/Broken Teeth: No Heart: ok Lungs: ok Assessment and Plan Assessment Anesthesia Assessment: Anesthesia Plan Discussed and Chart Reviewed Final Anesthetic Review Family History of Problems with Anesthesia: No History of Problems with Anesthesia: No NPO: Yes ASA Class: II Final Preanesthetic Review: No Changes in Pt Med Stat, Meds/Allgs Chart Reviewe d, Consent Obtained/Reviewed and Anes Risks/Benef Reviewed Patient Risk: Low Procedure Risk: Low Anesthetic Plan Anesthetic Plan: MAC: and Agree w/ Assess. and Plan Disposition: Standard PACU
[2022-12-11] VITALS (7 sets, daily range): BP systolic 114–140; BP diastolic 60–72; PULSE 44–58; RESP 14–16; TEMP 35.9–36.5; O2SAT 96–100; BMI 25.7
--- NOTE | ~2022-12-11 | XR_ITS ---
EXAMINATION: XR ABDOMEN KUB CLINICAL INDICATION: Left renal calculus COMPARISON: KUB 10/30/2022, renal ultrasound 07/16/2022, CT abdomen and pelvis 10/25/2019 TECHNIQUE: AP x2 views of the abdomen. FINDINGS: The left renal calculi are not clearly visualized on plain film. There are no new visible urinary tract calculi. Surgical clips right upper quadrant from prior cholecystectomy. The lung bases are clear. There is levocurvature lumbar spine with multilevel degenerative disc changes again seen. XR/XR KUB IMPRESSION: The left renal calculi not clearly visualized on plain film.
[2022-12-11] MEDS: Acetaminophen 325 MG TABLET 975 MG PO (06:57)
[2022-12-11] MEDS: Lactated Ringers 1,000 ML 100 ML IVCONT (07:13)
--- NOTE | 2022-12-11 07:37 | P.HPSUR_ITS ---
Pre-Procedural Eval Section A Date of Service: 12/11/22 The patient is an INPATIENT: No Changes since office visit: No Cold of Flu in the past 2 weeks, No New Medical Problems, No Changes in Medication and No Patient answered all questions The History & Physical has been completed within 30 days and I have reviewed it.: Yes Section B Chief Complaint: Calculus of kidney Allergies: Allergies Allergy/AdvReac Type Severity Reaction Status Date / Time No Known Allergies Allergy Verified 11/18/22 08:13 [No Known Allergies*] Review of Systems Sugical H&P ROS: Negative: Constitution, Cardiovascular, Respiratory, Neurological, Psychiatric, Hem-Onc, Allergic/Immunologic, Gastrointestinal, Genitourinary, Musculoskeletal, Integumentary, Endocrine and Eyes/Ears/Nose/Throat Exam Surgical H&P Exam: Normal: HEENT, Normal: Heart, Normal: Lungs, Normal: Extr emities, Normal: Abdomen, Normal: Skin and Normal: Neurological Plan Diagnosis/Plan: Unchanged (left ESWL) I have reviewed the history and physical and performed a pertinent physical examination on my patient. No changes have occurred unless specified. Time Spent With Patient Time: Total time managing care of this patient today ____ minutes.
--- NOTE | 2022-12-11 07:37 | W.PM.OPN ---
Operative Note Operative Note Date of Service: 12/11/22 Narrative: PreOperative Diagnosis: Left Renal stones Post Operative Diagnosis: Left Renal stones Procedure: Left ESWL Surgeon: Dr Gilles Banks Anesthesia: mac/sedation Indications for procedure: The patient understands ESWL may be a staged procedure and subsequent intervention may be required based on imaging after ESWL. Quoted stone clearance rates for a solitary procedure are in the 70-80% range based primarily on stone location. They also understand there is a risk of bleeding to the kidney, infection, damage to adjacent organs, and stone migration following the procedure. - Imaging 5mm left stone midpole Procedure: After informed consent was verified the patient was brought to the operating room and placed in a supine position. Anesthesia was performed per protocol. Safety pause time-out was performed. Imaging was displayed in the room and laterality confirmed. Prehydration with 1L LR ESWL was performed. The 1st 500 shocks were performed at 60 hertz. These were performed with increasing power. Once maximum power was reached the rate was increased to 180 hertz. A total of 2500 shocks were given. 10mg Lasix given at midpoint of procedure. Targeted imaging with ultrasound/fluoroscopy showed stone smudging suggestive of disintegration. The patient tolerated the procedure well and was transferred to the recovery area upon completion. Post procedure imaging will be organized. There was no evidence for flank discoloration.
[2022-12-11] MEDS: Furosemide 20 MG TABLET PO (08:32)
== END 2022-12-11 10:08 | disposition home or self-care (01) ==
PROVIDERS: PCP Physician Assistant; Visit Provider Urology
PROC: (CPT 50590; principal; 2022-12-11 08:20)
DX: N20.0 Calculus of kidney (principal); Z87.442 Personal history of urinary calculi; Z96.0 Presence of urogenital implants; E78.1 Pure hyperglyceridemia; J30.9 Allergic rhinitis, unspecified; Z79.899 Other long term (current) drug therapy; Z90.49 Acquired absence of other specified parts of digestive tract; Z87.891 Personal history of nicotine dependence
CPT/HCPCS: 50590; 74018; J1885; J1940; J3010

== ENCOUNTER 2023-01-06 10:02 | Outpatient (REF) | payer MEDICARE, BC, OTHER, SELFPAY ==
--- NOTE | ~2023-01-06 | US_ITS ---
EXAMINATION: US RETROPERITONEAL LIMITED (RENAL ONLY) CLINICAL INFORMATION: Calculus of kidney. COMPARISON: X-ray abdomen KUB 12/11/2022 and 10/30/2022. Ultrasound retroperitoneal limited (renal only) 07/16/2022 and 01/09/2022. CT abdomen and pelvis 10/25/2019. TECHNIQUE: Real-time imaging of the kidneys. FINDINGS: RIGHT KIDNEY: 10.8 x 4.9 x 4.3 cm (SAG x AP x TRV). The kidney is normal in size, contour, and echogenicity. Renal cortical thickness is normal. No renal calculi or hydronephrosis. There is an anechoic cyst upper pole measuring 1.4 x 1.2 x 1.4 cm LEFT KIDNEY: 9.9 x 4.5 x 4.2 cm (SAG x AP x TRV). The kidney is normal in size, contour, and echogenicity. Renal cortical thickness is normal. No focal parenchymal lesions or hydronephrosis. There is an anechoic cyst in the midpole measuring 0.5 x 0.3 x 0.5 cm and upper pole measuring 0.5 x 0.3 cm. US/US renal BI IMPRESSION: Bilateral renal cysts. No echogenic stones or hydronephrosis.
== END 2023-01-06 10:03 | disposition home or self-care (01) ==
LOC: HO.US 10:02
PROVIDERS: PCP Physician Assistant; Visit Provider Urology
DX: N20.0 Calculus of kidney (principal)
CPT/HCPCS: 76775

== ENCOUNTER → 2023-01-22 09:47 | Outpatient (BNVA) | payer MEDICARE, BC, OTHER, SELFPAY | PROVIDERS: PCP Physician Assistant; Visit Provider Urology | DX: N20.0 Calculus of kidney (principal) | CPT/HCPCS: 99212 ==

== ENCOUNTER 2023-04-30 11:42 | Outpatient (AMB) | payer MEDICARE, BC, OTHER, SELFPAY ==
--- NOTE | 2023-04-30 11:49 | MHC.PC.OV ---
Vital Signs 04/30/23 11:50 Weight 152 lb 6 oz BP 110/68 Blood Pressure Location Lt brachial Position Sitting Pulse 66 Pulse Source Pulse Oximeter Pulse Oximetry (%) 95 Oxygen Delivery Method Room Air Intake Visit Reasons: f/u nephrolithiasis/ borderline high cholestero Deck Mate Required: No Accompanied by: Self / Same As Patient Allergies No Known Allergies [No Known Allergies*] Allergy (Verified 04/30/23 11:58) Medication List - Last Reconciled 04/30/23 by Francesco Mcdonough PA-C acetaminophen (Tylenol) 325 mg PO QID PRN diclofenac sodium 1% 4 grams topical QID pregabalin 75 mg PO DAILY 90 days pyridoxine (vitamin B6) 100 mg PO DAILY 90 days Tobacco use date assessed: 04/30/23 Fall risk assessment: No Falls in past year Last assessed Fall Risk: 04/30/23 Dental Screening Dental Screen Date: 04/30/23 Did you have a dental visit in the last 12 months?: Yes Did you have a dental problem in the last 6 months where you did not have access to dental care?: No Was dental information given to patient?: Patient has dentist HPI f/u nephrolithiasis/ borderline high cholestero HPI Details Patient is a 67-year-old female here today for follow-up visit.? Patient has a past medical history significant for nephrolithiasis, restless legs syndrome. Concern--> has chronic history cervical spine pain with myelopathy. She reports over last 2 weeks she has felt some stiffness and pain in her cervical spine. Has been doing home stretches in using [id number] analgesics. Reports neck pain has gotten better and is considering repeating physical therapy for her neck . Of note she does use tizanidine 2 mg on a p.r.n. basis usually at night for her neck pain. Nephrolithiasis:? Patient followed by Urology, under surveillance for her nephrolithiasis with ultrasounds of her kidneys. Most recent ultrasound without any evidence of nephrolithiasis RLS:? She continues Lyrica 75 mg daily with good effect on reducing her restless leg symptoms. .. Borderline high cholesterol: Patient continues to work on lifestyle modifications to reduce her borderline high cholesterol. Most recent cholesterol panel showing total cholesterol 206. Laboratory Tests 06/06/21 05/07/22 07:05 07:38 Cholesterol 214 206 LDL Cholesterol, C alc 121 PFSH Medical History Allergic rhinitis COVID-19 History of ARDS History of kidney stones Hypertriglyceridemia Iliotibial band syndrome, right leg Osteoarthritis of right patellofemoral joint Preop exam for internal medicine Renal stones Restless leg syndrome Retained ureteral stent Surgical History History of cholecystectomy Hx of colonoscopy Hx of left breast biopsy Hx of lithotripsy Family History Father No problems noted. Mother No problems noted. Social History Housing: House Alcohol intake: current Patient Tobacco Use Status: Former Tobacco user Years Smoked: quit 1999 e-Cigarette/Vaping Use: Never Used service: No Current occupational status: retired Cognitive needs: No Hearing needs: No Vision needs: No Questionnaire PHQ-9 Over the last 2 weeks, how often have you been bothered by any of the following problems? 1. Little interest or pleasure in doing things: not at all 2. Feeling down, depressed, or hopeless: not at all 3. Trouble falling or staying asleep, or sleeping too much: several days 4. Feeling tired or having little energy: not at all 5. Poor appetite or overeating: not at all 6. Feeling bad about yourself - or that you are a failure or have let yourself or your family down: not at all 7. Trouble concentrating on things, such as reading the newspaper or watching television: not at all 8. Moving or speaking so slowly that other people could have noticed. Or the opposite - being so fidgety or restless that you have been moving around a lot more than usual: not at all 9. Thoughts that you would be better off or of hurting yourself in some way: not at all Total score: 1 Depression Screening Interpretation: Negative 99421 - PHQ-9 Billing: Yes Source: Developed by Drs. Mian Johns, Michelle Baltazar, Owen Castellano and colleagues, with an educational mi from [employer] Thrive Questionnaire Date Thrive assessed: 04/30/23 I am a: Patient What is your living situation today?: I have a steady place to live Within the past 12 months, did the food you bought not last and you didn't have the money to get more?: Never true Within the past 12 months, did you worry whether your food would run out before you got money to buy more?: Never true Do you have trouble paying for medicines?: No Do you have trouble getting transportation to medical appointments?: No Do you have trouble paying your heating and electricity bill?: No Do you have trouble taking care of your child, family member or friend?: No Do you have trouble with day-to-day activities such as bathing, preparing meals, shopping, managing finances, etc.?: No Are you currently unemployed and looking for a job?: No Are you interested in more education?: No Please select the resources that you would like help with: None Currently or been in a relationship where the following occur: no concerns reported AUDIT C Alcohol Use Questionnaire (AUDIT-C) 1. How often do you have a drink containing alcohol?: Monthly or less 2. How many drinks containing alcohol do you have on a typical day when you are drinking?: 1 or 2 3. How often do you have six or more drinks on one occasion?: Never Total Score: 1 Score Reviewed/Action Taken: No GRETEL-7 AMB Questionnaire GRETEL-7 Date GRETEL - 7 assessed: 04/30/23 Feeling nervous, anxious, or on edge: 0 = Not at all Not being able to stop or control worryin = Not at all Worrying too much about different things: 0 = Not at all Trouble relaxin = Not at all Being so restless that it is hard to sit still: 0 = Not at all Becoming easily annoyed or irritable: 0 = Not at all Feeling afraid as if something awful might happen: 0 = Not at all Total GRETEL-7 score (0-4 normal; 5-9 mild; 10-14 moderate; 15-21 severe): 0 Source: Developed by Drs. Mian Johns, Michelle Baltazar, Owen Castellano and colleagues, with an educational mi from [employer] GRETEL-7 Assessment Billing GRETEL-7 Assessment Tool: GRETEL-7 Assessment [id number] Review of Systems Const Denies headache(s) Eyes Denies loss of vision ENT Denies vertigo, Denies dizziness, Denies headache(s) and Denies sore throat Card Denies chest pain, Denies leg edema and Denies lightheadedness Resp Denies cough, Denies hemoptysis and Denies wheezing GI Denies abdominal pain, Denies melena, Denies constipation, Denies diarrhea and Denies vomiting Denies urinary frequency, Denies dysuria and Denies urinary urgency Musc Denies arthralgias, Denies joint swelling, Denies numbness and Denies tingling Neuro Denies Abnormal speech present, Denies behavioral changes, Denies vertigo, Denies dizziness, Denies headache(s), Denies loss of vision, Denies memory loss, Denies numbness and Denies tingling Psych Denies anxiety, Denies behavioral changes, Denies depression, Denies memory loss and Denies panic attacks Soren/Lymph Denies easy bleeding and Denies easy bruising Aller/Immun Denies wheezing Physical exam (Primary Care) Vital Signs: Last Vital Signs Pulse 66 04/30/23 11:50 BP 110/68 04/30/23 11:50 Pulse Ox 95 04/30/23 11:50 Oxygen Delivery Method Room Air 04/30/23 11:50 Tobacco/Smoking Status: Tobacco use Status Tobacco use date assessed 04/30/23 04/30/23 11:55 Patient Tobacco Use Status Former Tobacco user 04/30/23 11:55 e-Cigarette/Vaping Use Never Used 04/30/23 11:55 PHQ-9: PHQ-9 Score PHQ-9: Total score 1 04/30/23 12:06 Depression Screening Interpretation: Negative Thrive Assessment: Date of Thrive Assessment Date Thrive assessed 04/30/23 04/30/23 11:55 Currently or been in a relationship where the following occur: no concerns reported Const General: healthy appearing, no acute distress, alert and awake Nutritional Appearance: well nourished Orientation/consciousness: oriented to person, oriented to place and oriented to time [facility] Head images: 1. SMALL FIRM LUMP OVER RIGHT UPPER FRONTAL ASPECT OF HEAD. Ears: TM's normal bilaterally General nose exam: Normal nasal mucous membranes and turbinates present Eyes Conjunctivae: conjunctivae normal Sclerae: sclerae normal Pupils: Equal, round and reactive pupils present Neck Neck: Yes no lymphadenopathy and Yes no JVD Thyroid: Thyroid normal Carotids: no bruits Resp Effort & Inspection: normal respiratory effort and not tachypneic Auscultation: no crackles, no rales, no rhonchi and no wheezes Cardio Rate: regular rate Rhythm: regular rhythm Heart sounds: no murmurs and normal S1 and S2 GI Palpation (GI): Soft to palpation, nontender, no hepatomegaly and no splenomegaly Auscultation: normal bowel sounds Skin General skin exam: no rashes or lesions noted and dry skin Neuro General: oriented to person, oriented to place and oriented to time Cranial nerves: Yes Equal, round and reactive pupils present Speech: No Abnormal speech present Gait exam (Neuro): Normal gait present Motor exam (neuro): no tremor noted Extrem Right upper extremity: full ROM Left upper extremity: full ROM Right lower extremity: full ROM; no edema Left lower extremity: full ROM; no edema Psych Mental Status: mental status grossly normal Speech and movement: Normal speech and movement present Affect: normal affect Attitude: cooperative Thought process: Normal thought process present Assessment and Plan Assessment & Plan (1) Hypertriglyceridemia: Code(s): E78.1 - Pure hyperglyceridemia Plan: Will continue to follow fasting lipid panel to evaluate triglycerides and total cholesterol. At this time patient continues to work on lifestyle modifications to reduce her cholesterol. (2) Kidney stone on left side: Code(s): N20.0 - Calculus of kidney Plan: Continues to follow Urology and is on surveillance renal ultrasounds. Most recent ultrasound without any evidence of nephrolithiasis. Has discontinued tamsulosin (3) RLS (restless legs syndrome): Code(s): G25.81 - Restless legs syndrome Plan: Was followed by Neurology and was started on pregabalin 75mg. Pregabalin has been very effective on reducing her wrists legs syndrome. 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 Has had CT head in the past did show an osteoma. Patient not bothered by the appearance and would like to monitor at this time. 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
[2023-04-30 11:50] VITALS: BP 110/68; PULSE 66; O2SAT 95
== END 2023-04-30 12:09 | disposition home or self-care (01) ==
PROVIDERS: PCP Physician Assistant; Visit Provider Physician Assistant
DX: E78.1 Pure hyperglyceridemia (principal); N20.0 Calculus of kidney; G25.81 Restless legs syndrome; D16.4 Benign neoplasm of bones of skull and face
CPT/HCPCS: 99214

== ENCOUNTER 2023-06-06 08:31 | Outpatient (REF) | payer MEDICARE, BC, OTHER, SELFPAY ==
--- NOTE | ~2023-06-06 | MM_ITS ---
EXAMINATION: MM SCREENING DIGITAL BREAST TOMOSYNTHESIS, BILATERAL CLINICAL INFORMATION: Screening. Asymptomatic. COMPARISON: Mammography: 09/03/2021, 05/22/2021, 06/09/2019, and 03/16/2018. ([facility] [place]) TECHNIQUE: Digital breast tomosynthesis is performed in both the craniocaudal and mediolateral oblique views along with computer-aided detection (CAD). Synthesized 2D images are generated from the tomosynthesis. FINDINGS: There are scattered areas of fibroglandular density (ACR BI-RADS breast composition Category b). There are mild vascular calcifications bilaterally. There is a potential focus of developing architectural distortion in the upper outer left breast, although this may be superimposition artifact of normal tissues. This is appreciated best on the tomographic images. Regardless, spot magnification 3-D views in the CC and MLO projections recommended. There are no additional suspicious findings in either breast. There are no skin or axillary abnormalities. MM/MM tomosynthesis screening BI IMPRESSION: Possible developing focus of architectural distortion upper outer LEFT breast, likely superimposition artifact, however spot compression views recommended for confirmation. No suspicious findings in the RIGHT breast. ASSESSMENT: BI-RADS BI-RADS 0 - Incomplete: Needs additional Imaging. RECOMMENDATION: 1. Additional views of the LEFT breast 2. Targeted ultrasound if warranted after review of the additional views. 3. Radiology department staff will contact the patient for additional imaging. Additional Imaging required This examination should not preclude the clinical evaluation of a suspicious palpable abnormality.
[2023-06-06 09:01] LABS: Hematocrit 41.5 % (37.0-47.0); Hemoglobin 14.2 g/dl (12.0-16.0); Mean Corpuscular HGB Conc 34.2 g/dl (31.0-35.0); Mean Corpuscular Hemoglobin 29.8 pg (27.0-33.0); Mean Corpuscular Volume 87.2 fL (80.0-98.0); Mean Platelet Volume 10.8 fL (9.4-12.3); Platelet Count 253 X10*3/uL (160-400); Red Blood Count 4.76 X10*6/uL (4.20-5.50); Red Cell Distribution Width 12.8 % (11.0-16.0); White Blood Count 7.1 X10*3/uL (4.8-10.8)
[2023-06-06 09:30] LABS: Alanine Aminotransferase 18 U/L (0-31); Albumin Level 4.4 g/dL (3.5-5.0); Alkaline Phosphatase 103 U/L (39-117); Anion Gap 13 (12-20); Aspartate Amino Transferase 20 U/L (5-31); Bilirubin Total 0.6 mg/dL (0.0-1.0); Blood Urea Nitrogen 20 mg/dL (9-16); Calcium 9.8 mg/dL (8.4-10.2); Carbon Dioxide 24 mmol/L (22-29); Chloride 108 mmol/L (96-108); Cholesterol 232 mg/dL (<200); Estimated Glomerular Filt Rate 58; Glucose Fasting 93 mg/dL (60-99); HDL Cholesterol 65 mg/dL (>40); LDL Cholesterol Calculated 141 mg/dL (<100); Sodium 141 mmol/L (135-145); Total Protein 7.5 g/dL (6.5-8.0); Triglycerides 134 mg/dL (<150)
[2023-06-06 09:46] LABS: TSH reflex Free T4 1.52 uIU/mL (0.32-4.0)
== END 2023-06-06 08:32 | disposition home or self-care (01) ==
LOC: HO.MAMMO 08:31
PROVIDERS: PCP Physician Assistant; Visit Provider Physician Assistant
DX: E78.1 Pure hyperglyceridemia (principal); Z13.1 Encounter for screening for diabetes mellitus; Z13.29 Encounter for screening for other suspected endocrine disorder; Z12.31 Encounter for screening mammogram for malignant neoplasm of breast
CPT/HCPCS: 36415; 77063; 77067; 80053; 80061; 84443; 85027

== ENCOUNTER → 2023-06-06 09:00 | Outpatient (BNV) | payer MEDICARE, BC, OTHER, SELFPAY | PROVIDERS: PCP Physician Assistant; Visit Provider Radiology Diagnostic Radiology | DX: Z12.31 Encounter for screening mammogram for malignant neoplasm of breast (principal) | CPT/HCPCS: 77063; 77067 ==

== ENCOUNTER 2023-07-09 13:59 | Outpatient (REF) | payer MEDICARE, BC, OTHER, SELFPAY ==
--- NOTE | ~2023-07-09 | MM_ITS ---
EXAMINATION: MM DIAGNOSTIC DIGITAL BREAST TOMOSYNTHESIS, LEFT CLINICAL INFORMATION: Evaluate possible focus of architectural distortion left breast upper outer quadrant. Additional history has been obtained. The patient has had 2 prior excisional biopsies on the left side. COMPARISON: Mammography: 06/06/2023.09/03/2021, 05/22/2021, 06/09/2019, and 03/16/2018. ([facility] [place]) TECHNIQUE: Digital breast tomosynthesis is performed in both the craniocaudal and mediolateral oblique views along with computer-aided detection (CAD). Synthesized 2D images are generated from the tomosynthesis. FINDINGS: There are scattered areas of fibroglandular density (ACR BI-RADS breast composition Category b). Diagnostic views confirm the presence of a focus of distortion in the upper slightly outer left breast, middle to posterior one third, most likely related to 2 prior excisional biopsies on the left side in 1998 in 1999. There is no findings suspicious for malignancy. There are benign vascular calcifications. MM/MM tomosynthesis diagnostic LT IMPRESSION: No persistent findings suspicious for malignancy. Architectural distortion left breast related to prior surgeries. Recommend the patient resume annual screening. ASSESSMENT: BI-RADS BI-RADS 2 - Benign Findings RECOMMENDATION: 1 year F/U Results were provided to the patient at time of visit by the technologist. This patient's information was entered into a reminder system with a target due date for their next mammogram.
== END 2023-07-09 14:00 | disposition home or self-care (01) ==
LOC: HO.MAMMO 13:59
PROVIDERS: PCP Physician Assistant; Visit Provider Physician Assistant
DX: N64.89 Other specified disorders of breast (principal)
CPT/HCPCS: 77061; 77065

== ENCOUNTER 2023-07-14 08:47 | Outpatient (REF) | payer MEDICARE, BC, OTHER, SELFPAY ==
--- NOTE | ~2023-07-14 | US_ITS ---
EXAMINATION: US RETROPERITONEAL LIMITED (RENAL ONLY) CLINICAL INFORMATION: Calculus of kidney. COMPARISON: Ultrasound retroperitoneal limited (renal only) 01/06/2023. X-ray abdomen KUB 12/11/2022 and 10/30/2022. Ultrasound retroperitoneal limited (renal only) 07/16/2022. CT abdomen and pelvis without contrast 10/25/2019. TECHNIQUE: Real-time imaging of the kidneys. FINDINGS: RIGHT KIDNEY: 11.2 x 4.7 x 6.4 cm (SAG x AP x TRV). The kidney is normal in size, contour, and echogenicity. Renal cortical thickness is normal. No renal calculi or hydronephrosis. 1.5 x 1.4 x 1.4 cm upper pole cyst without clearing of the internal echoes. LEFT KIDNEY: 10.0 x 4.9 x 4.3 cm (SAG x AP x TRV). The kidney is normal in size, contour, and echogenicity. Renal cortical thickness is normal. No focal parenchymal lesions or hydronephrosis. 0.4 x 0.5 x 0.5 cm nonobstructing calculus in the mid kidney and 0.7 x 0.5 x 0.6 cm nonobstructing calculus in the lower pole are seen. US/US renal BI IMPRESSION: 1. 1.5 cm right upper pole cyst without clearing of the internal echoes. CT scan could be obtained for further evaluation. This is not seen on CT scan of the abdomen and pelvis 10/25/2019. 2. 2 nonobstructing calculi in the left kidney.
== END 2023-07-14 08:48 | disposition home or self-care (01) ==
LOC: HO.US 08:47
PROVIDERS: PCP Physician Assistant; Visit Provider Urology
DX: N20.0 Calculus of kidney (principal)
CPT/HCPCS: 76775

== ENCOUNTER 2023-07-16 06:55 | Day surgery (SDC) | payer MEDICARE, BC, OTHER, SELFPAY ==
[2023-07-14 14:08] VITALS: BMI 26.6
--- NOTE | 2023-07-16 06:39 | P.HPSUR_ITS ---
Documented by User: Carrol Escoto MD 07/16/23 09:14 Pre-Procedural Eval Section A Date of Service: 07/16/23 Section B Chief Complaint: reflux disease,screening Relevant Family History (Specify if Yes): No Relevant Social History: None Present Medications: see Short Stay Collaborative assessment Medical History: Significant History (COVID-19 Preop exam for internal medicine Allergic rhinitis Hypertriglyceridemia History of ARDS Osteoarthritis of right patellofemoral joint Restless leg syndrome Retained ureteral stent History of kidney stones Renal stones Iliotibial band syndrome, right leg) History of Previous Operations: Relevant previous surgery/procedure and date(s) (Hx of left breast biopsy Hx of colonoscopy Hx of lithotripsy History of c holecystectomy) Allergies: Allergies Allergy/AdvReac Type Severity Reaction Status Date / Time No Known Allergies Allergy Verified 04/30/23 11:58 [No Known Allergies*] Review of Systems Sugical H&P ROS: Negative: Constitution, Cardiovascular, Respiratory, Neurological, Psychiatric, Hem-Onc, Allergic/Immunologic, Gastrointestinal, Genitourinary, Musculoskeletal, Integumentary, Endocrine and Eyes/Ears/Nose/Throat Exam Surgical H&P Exam: Normal: HEENT, Normal: Heart, Normal: Lungs, Normal: Extremities, Normal: Abdomen, Normal: Skin and Normal: Neurological Plan Diagnosis/Plan: Unchanged I have reviewed the history and physical and performed a pertinent physical examination on my patient. No changes have occurred unless specified. Time Spent With Patient Time: Total time managing care of this patient today ____ minutes. Documented by User: Lorenza Adrian MD 07/16/23 08:21 Pre-Procedural Eval Section A Date of Service: 07/16/23 Section B Chief Complaint: reflux disease,screening
[2023-07-16 07:07] VITALS: BP 141/80; PULSE 81; RESP 16; TEMP 36.2; O2SAT 98
[2023-07-16] MEDS: Lactated Ringers 1,000 ML 50 ML IVCONT (07:10)
--- NOTE | 2023-07-16 08:22 | P.CONAN_ITS ---
[facility] Active Problems Active Problems: All Active Problems COVID-19 (Acute) Osteoma of skull (Acute) RLS (restless legs syndrome) (Acute) Cough (Acute) Head lump (Acute) Screening for diabetes mellitus (DM) (Acute) Screening for hypothyroidism (Acute) Cervical myofascial strain (Acute) Kidney stone on left side (Acute) Screening for colon cancer (Acute) Adult general medical exam (Acute) Chest pain (Acute) GERD (gastroesophageal reflux disease) (Acute) Hypertriglyceridemia (Acute) Renal stones (Acute) Iliotibial band syndrome, right leg (Acute) Past Medical History Medical History COVID-19 Preop exam for internal medicine Allergic rhinitis Hypertriglyceridemia History of ARDS Osteoarthritis of right patellofemoral joint Restless leg syndrome Retained ureteral stent History of kidney stones Renal stones Iliotibial band syndrome, right leg Family History Family History Father No problems noted. Mother No problems noted. Family history of problems with anesthesia: No Surgical History Surgical History Hx of left breast biopsy Hx of colonoscopy Hx of lithotripsy History of cholecystectomy History of Problems with Anesthesia: No Social History Social History Housing: House Alcohol intake: current Patient Tobacco Use Status: Former Tobacco user Years Smoked: quit 1999 e-Cigarette/Vaping Use: Never Used Use of substances other than those prescribed or required for medical reasons: No Advance Directives: No Advance Directives Information Provided: Yes service: No Current occupational status: retired Cognitive needs: No Hearing needs: No Vision needs: No Meds Allergies Allergy/AdvReac Type Severity Reaction Status Date / Time No Known Allergies Allergy Verified 04/30/23 11:58 [No Known Allergies*] Active Medications: Current Medications Lactated Ringer's (Lr) 1,000 mls @ 50 mls/hr IVCONT .Q20H VERO Last Admin: 07/16/23 07:10 Dose: 50 mls/hr Home Medications Medication Instructions Recorded Confirmed Last Taken Type acetaminophen 325 mg capsule 325 mg PO QID PRN Pain 06/19/21 04/30/23 Unknown History (Tylenol) diclofenac sodium 1 % topical gel 4 g topical QID 11/18/22 04/30/23 Unknown History Exam Exam Date and Time: July 16, [id number] Height,Weight and Vital Signs: Height 5 ft 3 in Weight 68.039 kg Last Vital Signs Temp 97.1 F 07/16/23 07:07 Pulse 81 07/16/23 07:07 Resp 16 07/16/23 07:07 BP 141/80 H 07/16/23 07:07 Pulse Ox 98 07/16/23 07:07 O2 Del Method Room Air 07/16/23 07:07 Airway Mallampati Class: II TM Dist: >3cm Neck ROM: Full Assessment and Plan Assessment Anesthesia Assessment: Anesthesia Plan Discussed and Chart Reviewed Final Anesthetic Review Family History of Problems with Anesthesia: No History of Problems with Anesthesia: No NPO: Yes ASA Class: II Final Preanesthetic Review: No Changes in Pt Med Stat, Meds/Allgs Chart Reviewed, Consent Obtained/Reviewed and Anes Risks/Benef Reviewed Patient Risk: Low Procedure Risk: Low Anesthetic Plan Anesthetic Plan: MAC: Disposition: Standard PACU
--- NOTE | 2023-07-16 09:14 | W.PM.OPN ---
Operative Note Operative Note Date of Service: 07/16/23 Narrative: Operative Information Procedure Description: EGD, Colonoscopy Indication: screening, hx of reflux Anesthesia: MAC FLEXIBLE TRANSORAL UPPER GASTROINTESTINAL ENDOSCOPY AND COLONOSCOPY PROCEDURE NOTE UPPER ENDOSCOPY Consent: Indications for the procedure and potential complications of bleeding, perforation, reaction to medications and missed diagnosis were discussed with the patient and informed consent was obtained. Instrument: Olympus GIF H 190 J mid size upper endoscope Monitoring: Vital signs and clinical assessment, continuous EKG monitoring, Pulse oximetry, Carbon Dioxide monitoring and blood pressure monitoring were done throughout the procedure. Procedure: The patient was placed in the left lateral decubitis position and pre-procedure medications were administered and a bite block was placed. The endoscope was inserted into the mouth and advanced under direct vision to the third part of duodenum. A careful inspection was made as the upper endoscope was withdrawn including a retroflexed examination of the proximal stomach; Findings and interventions are described below. Findings: Larynx:normal Esophagus: GE junction at 37 cm, diaphragm hiatus at 37 cm, normal mucosa Stomach: Patchy erythema. Biopsies were obtained. Grade 2 flap valve on retroflexed examination of the cardia. Duodenum: Bulbar duodenitis, bx taken Intervention: Biopsies as noted above COLONOSCOPY Instrument: Olympus variable stiffness pediatric scope 190L Colonoscopy Monitoring: Vital signs and clinical assessment, continuous EKG monitoring, Pulse oximetry, Carbon Dioxide monitoring and blood pressure monitoring were done throughout the procedure. Colon withdrawal time was 17 minutes. Procedure: The patient was placed in the left lateral decubitis position and pre-procedure medications were administered. After a digital rectal examination of the ano-rectum, the video colonoscope was inserted into the rectum and advanced through the colon to the cecum/TI. The colonoscope was slowly withdrawn in a retrograde panoramic fashion and the colon mucosa was carefully examined including a retroflexed view of the rectum. Findings and interventions are described below. Procedure Difficulty:easy Findings: Terminal Ileum-normal Cecum: 5-7 mm sessile polyp removed with biopsy forceps Ascending Colon: scattered diverticula, Transverse Colon -normal Descending Colon: scattered diverticula Sigmoid Colon: severe diverticulosis, luminal narrowing and mucosal hypertrophy Rectum: Retroflexion with small internal hemorrhoids, grade I Anorectum - normal Colon preparation: [place] Bowel Preparation Scale Right colon; 2 Transverse colon: 2 Left colon; 1-2 (0 = Unprepared colon segment with mucosa not seen due to solid stool that cannot be cleared. 1 = Portion of mucosa of the colon segment seen, but other areas of the colon segment not well seen due to staining, residual stool and/or opaque liquid. 2 = Minor amount of residual staining, small fragments of stool and/or opaque liquid, but mucosa of colon segment seen well. 3 = Entire mucosa of colon segment seen well with no residual staining, small fragments of stool or opaque liquid) Impression and Post Procedure Diagnosis: Endoscopy Findings: gastritis duodenitis Colonoscopy Findings: polyp internal hemorrhoids diverticular disease Plan: Await Pathology results Repeat Colonoscopy in 5 years due to fair left sided prep or earlier if clinically indicated High fiber diet leaflet avoid straining at stool, epsom salts and sitz bath, anusol supps or cream if h pylori pos then treat, also on meloxicam which might explain gastritis Above findings were reviewed with the patient and relevant handouts were provided if indicated.
[2023-07-16 09:17] VITALS: BP 88/50; PULSE 81; RESP 16; TEMP 36.4; O2SAT 95
[2023-07-16 09:32] VITALS: BP 103/58; PULSE 79; RESP 18; O2SAT 97
[2023-07-16 09:47] VITALS: BP 127/70; PULSE 75; RESP 18; TEMP 36.1; O2SAT 99
== END 2023-07-16 10:20 | disposition home or self-care (01) ==
PROVIDERS: PCP Physician Assistant; Visit Provider Internal Medicine Gastroenterology
PROC: (CPT 45380; principal; 2023-07-16 08:30)
DX: Z12.11 Encounter for screening for malignant neoplasm of colon (principal); D12.0 Benign neoplasm of cecum; K57.32 Diverticulitis of large intestine without perforation or abscess without bleeding; K64.0 First degree hemorrhoids; K29.70 Gastritis, unspecified, without bleeding; K29.80 Duodenitis without bleeding; K21.9 Gastro-esophageal reflux disease without esophagitis; E78.1 Pure hyperglyceridemia; G25.81 Restless legs syndrome; Z87.442 Personal history of urinary calculi; Z90.49 Acquired absence of other specified parts of digestive tract; Z87.891 Personal history of nicotine dependence
CPT/HCPCS: 45380; 43239; 88305; 88342

== ENCOUNTER → 2023-07-16 06:55 | Outpatient (BNV) | payer MEDICARE, BC, OTHER, SELFPAY | PROVIDERS: PCP Physician Assistant; Visit Provider Internal Medicine Gastroenterology | DX: Z12.11 Encounter for screening for malignant neoplasm of colon (principal); K21.9 Gastro-esophageal reflux disease without esophagitis; K29.90 Gastroduodenitis, unspecified, without bleeding; D12.0 Benign neoplasm of cecum; K57.30 Diverticulosis of large intestine without perforation or abscess without bleeding; K64.0 First degree hemorrhoids | CPT/HCPCS: 43239; 45380 ==

== ENCOUNTER 2023-07-25 09:42 | Outpatient (AMB) | payer MEDICARE, BC, OTHER, SELFPAY ==
--- NOTE | 2023-07-25 09:43 | A.OFFVIS_ITS ---
Intake Intake Visit Reasons: 6m/US(set) Intake Note: Patient is Present for Telephone Follow Up For Urology Med:VITAMIN B6 Antibiotic Allergy:NKA Blood Thinner:NONE Pharamcy:[facility] Allergies No Known Allergies [No Known Allergies*] Allergy (Verified 07/25/23 09:45) Medication List - Last Reconciled 07/25/23 by Gilles Banks MD acetaminophen (Tylenol) 325 mg PO QID PRN diclofenac sodium 1% 4 grams topical QID meloxicam 15 mg PO DAILY 7 days nirmatrelvir-ritonavir 300 mg (150 mg x 2)-100 mg (Paxlovid) take TWO 150 mg tablets of nirmatrelvir with ONE 100 mg tablet of ritonavir twice daily for 5 days PO pregabalin 75 mg PO DAILY 90 days pyridoxine (vitamin B6) 100 mg PO DAILY 90 days tizanidine 2 mg PO BID 20 days HPI HPI Comments History of Present Illness Details Elvira is a pleasant female. She is a patient of Dr. Mcdonough. She is seen for the following urologic conditions - nephrolithiasis Telemedicine Evaluation 15 min Consultation [employer] Small stone left side recent ultrasound, no symptoms Encourage fluids Lemon with True Lemon Oxalate avoidance 6 month follow-up imaging Nephrolithiasis Interventions - spring 2019 left ureteroscopy with stent - 01/31 left ESWL - 01/02 Left ESWL Imaging - 07/02 ultrasound small left renal stone - 12/31 ultrasound 6 mm left renal stone - 08/03 renal ultrasound left cortical thinning, 2 x 6 mm stones - 11/04 KUB faint 5 mm left - 01/02 renal ultrasound bilateral small cysts no stones Therapeutic plan - increase fluid intake, lemon water, vitamin B6, oxalate avoidance PFSH Medical History COVID-19 Preop exam for internal medicine Allergic rhinitis Hypertriglyceridemia History of ARDS Osteoarthritis of right patellofemoral joint Restless leg syndrome Retained ureteral stent History of kidney stones Renal stones Iliotibial band syndrome, right leg Surgical History History of esophagogastroduodenoscopy (EGD) Hx of left breast biopsy Hx of colonoscopy Hx of lithotripsy History of cholecystectomy Family History Father No problems noted. Mother No problems noted. Social History Housing: House Alcohol intake: current Patient Tobacco Use Status: Former Tobacco user Years Smoked: quit 1999 e-Cigarette/Vaping Use: Never Used service: No Current occupational status: retired Cognitive needs: No Hearing needs: No Vision needs: No Review of Systems Const All systems reviewed & are unremarkable except as noted in HPI and below Reports no additional complaints Resp Reports no additional complaints GI Reports no additional complaints Reports as per HPI Musc Reports no additional complaints Physical Exam Telemedicine evaluation Appropriate responses Regular breathing rate and rhythm HEENT Head: Yes normal to inspection Ears: hearing grossly normal bilaterally Eyes General: appearance normal, both eyes and all related structures Neck Neck: Yes normal visual inspection Chest Chest palpation & inspection: normal inspection of the chest Resp Effort & Inspection: normal respiratory effort and able to speak in complete sentences Assessment & Plan Assessment & Plan (1) Renal stones: Code(s): N20.0 - Calculus of kidney Plan 6m KUB Orders: Orders XR KUB 6 Months N20.0 - Calculus of kidney Patient Instructions: Imaging studies, laboratory and physical exam results were discussed and reviewed in detail. No major barriers to patient understanding were identified. An opportunity to ask questions regarding the treatment plan was provided. All questions were answered. The patient expressed understanding and agreement with the above treatment plan. The patient is aware they should contact our office by phone for worsening of their current condition or the appearance of new urologic symptoms. Compliance is encouraged with any medications and followup testing that is ordered. It is a privilege to participate in the urologic care of your patient. If you have any questions or concerns regarding treatment for the above conditions, or other urologic issues, please do not hesitate to contact me. The office telephone contact is [phone]. This note is constructed using voice recognition software. While every effort has been made to ensure accuracy marketing database consultant errors may have been included. Yours sincerely, Dr Gilles Banks MD, PA[facility] [place] - Urology Providers of Expert, Compassionate Care for the Genitourinary System Telehealth Telehealth Location of provider rendering services: practice address Location of patient: address on file Patient Identification confirmed using: Name, : Yes Telehealth method: video Patient verbally consented to treatment: Yes Patient verbally consented to billing insurance company: Yes Patient informed of any privacy concerns related to visit: Yes Coding Level of Care Code Tele Est Pt Level 3 (73433) Diagnoses Renal stones N20.0
== END 2023-07-25 11:51 | disposition home or self-care (01) ==
LOC: HO.HUSH 09:42
PROVIDERS: PCP Physician Assistant; Visit Provider Urology
DX: N20.0 Calculus of kidney (principal)
CPT/HCPCS: 99213

== ENCOUNTER → 2023-07-25 09:42 | Outpatient (BNVA) | payer MEDICARE, BC, OTHER, SELFPAY | PROVIDERS: PCP Physician Assistant; Visit Provider Urology ==

== ENCOUNTER 2023-07-30 11:29 | Outpatient (AMB) | payer MEDICARE, BC, OTHER, SELFPAY ==
--- NOTE | 2023-07-30 11:39 | A.OFFVIS_ITS ---
Intake Vital Signs 07/30/23 11:41 Height 5 ft 3 in Weight 147 lb BMI 26.0 BP 148/70 H Blood Pressure Location Lt brachial Position Sitting Pulse 65 Intake Visit Reasons: S/P double; Dr. Escoto Intake Note: Patient follow up for EGD/Colonoscopy results. Patient denies any GI issues. 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 Accompanied by: Self / Same As Patient Allergies No Known Allergies [No Known Allergies*] Allergy (Verified 07/30/23 11:39) Medication List - Last Reconciled 07/30/23 by Jayne Montes PA-C acetaminophen (Tylenol) 325 mg PO QID PRN diclofenac sodium 1% 4 grams topical QID famotidine 40 mg PO DAILY nirmatrelvir-ritonavir 300 mg (150 mg x 2)-100 mg (Paxlovid) take TWO 150 mg tablets of nirmatrelvir with ONE 100 mg tablet of ritonavir twice daily for 5 days PO pregabalin 75 mg PO DAILY 90 days pyridoxine (vitamin B6) 100 mg PO DAILY 90 days tizanidine 2 mg PO BID 20 days HPI HPI Comments History of Present Illness Details A 67-year-old female follows up after recent EGD colonoscopy Reviewed procedure report, pathology, and recommendations She has no GI or general complaints Sigmoid Colon: severe diverticulosis, luminal narrowing and mucosal hypertrophy [facility] Medical History COVID-19 Preop exam for internal medicine Allergic rhinitis Hypertriglyceridemia History of ARDS Osteoarthritis of right patellofemoral joint Restless leg syndrome Retained ureteral stent History of kidney stones Renal stones Iliotibial band syndrome, right leg Surgical History History of esophagogastroduodenoscopy (EGD) Hx of left breast biopsy Hx of colonoscopy Hx of lithotripsy History of cholecystectomy Family History Father No problems noted. Mother No problems noted. Social History Housing: House Alcohol intake: current Patient Tobacco Use Status: Former Tobacco user Years Smoked: quit 1999 e-Cigarette/Vaping Use: Never Used service: No Current occupational status: retired Cognitive needs: No Hearing needs: No Vision needs: No Review of Systems Const All systems reviewed & are unremarkable except as noted in HPI and below Card Denies chest pain and Denies dyspnea Resp Denies dyspnea GI Denies abdominal pain Physical Exam Vital Signs: Last Vital Signs Pulse 65 07/30/23 11:41 BP 148/70 H 07/30/23 11:41 BMI result Body Mass Index 26.0 Const General: cooperative, healthy appearing, comfortable and no acute distress Orientation/consciousness: patient oriented x3 Limitations: no limitations Neuro General: patient oriented x3 Psych Appearance: grossly normal and well kempt Mental Status: mental status grossly normal Speech and movement: Normal speech and movement present Affect: normal affect Attitude: cooperative Thought content: Normal thought content present Insight: Good insight present (Psych) Judgement: Good judgement present (Psych) Results Reviewed Results Reviewed: Impression and Post Procedure Diagnosis: Endoscopy Findings: gastritis duodenitis Colonoscopy Findings: polyp internal hemorrhoids diverticular disease Plan: Await Pathology results Repeat Colonoscopy in 5 years due to fair left sided prep or earlier if clinically indicated High fiber diet leaflet avoid straining at stool, epsom salts and sitz bath, anusol supps or cream if h pylori pos then treat, also on meloxicam which might explain gastritis Above findings were reviewed with the patient and relevant handouts were provided if indicated. maty: Elvira Arce Age/Sex: 67/F Attending: Carrol Escoto MD : 1955 Submitted by: Carrol Escoto MD Copies to: Francesco Mcdonough PA-C MR #: [id number] Status: [facility] Collected: 07/16/23 Location: [facility] Received: 07/16/23 Diagnosis A. Duodenum, biopsy: Chronic inactive duodenitis. B. Stomach, biopsy: Oxyntic mucosa with mild chronic inactive inflammation; no Helicobacter organisms seen. C. Cecum, polypectomy: Sessile serrated lesion/polyp; negative for cytologic dysplasia. Clinical History Pre-Op Dx: Reflux disease, colon cancer screening Post-Op Dx: Gastritis, duodenitis, diverticulosis, colon polyp, hemorrhoids Microscopic Description A-C. Microscopic sections reviewed. Immunostain for H. pylori is non-reactive (B). Material Received A. Duodenal bx's B. Stomach bx's C. Cecal polyp Gross Description The specimens are received in formalin in 3 parts all labeled with the patient's name and date of . Part A is additionally labeled ?duodenum biopsy? and consists of multiple fragments of yellow soft tissue measuring up to 0.4 cm in greatest dimension. The entire specimen is submitted in A. Part B is additionally labeled ?stomach biopsy? and consists of multiple fragments of yellow soft tissue measuring up to 0.4 cm in greatest dimension. The entire specimen is submitted in B. Part C is additionally labeled ?cecal polyp? and consists of multiple fragments of yellow soft tissue measuring up to 0.2 cm in greatest dimension. The entire specimen is submitted in C. Special studies ordered and performed: immunostain for H. pylori on B Copies To Francesco Mcdonough PA-C [address] [place] [address] Dr. Short 101 Patient: Elvira Arce Age/Sex: 67/F MR#: [id number] Page 1 of 2 Assessment & Plan Assessment & Plan (1) Sessile colonic polyp: Code(s): K63.5 - Polyp of colon Plan: 5 year repeat (2) Gastritis: Code(s): K29.70 - Gastritis, unspecified, without bleeding (3) Diverticulosis of colon: Comment: Sigmoid Colon: severe diverticulosis, luminal narrowing and mucosal hypertrophy Code(s): K57.30 - Diverticulosis of large intestine without perforation or abscess without bleeding Plan 5 year repeat colonscopy Famotidine as need- Avoid nsaids Medications: New famotidine 40 mg PO DAILY 30 tabs 5RF Patient Instructions: 5 year repeat colonscopy Famotidine as need- Avoid nsaids ER protocol - diverticulosis/ diverticulitis HFD avid strain with hemorrhoids Coding Level of Care Code Est Pt Level 3 (08276) Diagnoses Sessile colonic polyp K63.5 Gastritis K29.70 Diverticulosis of colon K57.30 Time Spent (min) 25
[2023-07-30 11:41] VITALS: BP 148/70; PULSE 65; BMI 26.0
== END 2023-07-30 12:19 | disposition home or self-care (01) ==
PROVIDERS: PCP Physician Assistant; Visit Provider Physician Assistant
DX: K63.5 Polyp of colon (principal); K29.70 Gastritis, unspecified, without bleeding; K57.30 Diverticulosis of large intestine without perforation or abscess without bleeding
CPT/HCPCS: 99213

== ENCOUNTER → 2023-07-30 11:29 | Outpatient (BNVA) | payer MEDICARE, BC, OTHER, SELFPAY | PROVIDERS: PCP Physician Assistant; Visit Provider Physician Assistant | DX: K57.30 Diverticulosis of large intestine without perforation or abscess without bleeding (principal); K63.5 Polyp of colon; K29.70 Gastritis, unspecified, without bleeding | CPT/HCPCS: 99212 ==

== ENCOUNTER 2023-08-12 11:42 | Emergency (ER) | payer MEDICARE, BC, OTHER, SELFPAY ==
[2023-08-12 12:10] VITALS: BP 139/85; PULSE 60; RESP 17; TEMP 36.4; O2SAT 97; BMI 26.3
--- NOTE | 2023-08-12 12:13 | ED.ABDPAIN ---
HPI - Abdominal Pain General Chief Complaint: Abdominal Pain Stated Complaint: Diverticulitis Time Seen by Provider: 08/12/23 18:55 Source: patient and family () Mode of arrival: ambulatory History of Present Illness HPI narrative: 67-year-old female who presents after having a colonoscopy approximately 3 weeks ago and then for approximately the past 2-3 weeks has been feeling a little more fatigued than usual and then since has been having some mild left lower abdominal discomfort without fever or chills but slight nausea and endorses that she was diagnosed with diverticulosis on the colonoscopy. She denies any dysuria. She does have known kidney stones which 2 additional stones were identified in the kidney approximately 1 week ago. Related Data Home Medications Medication Instructions Recorded Confirmed acetaminophen 325 mg capsule 325 mg PO QID PRN Pain 06/19/21 07/30/23 (Tylenol) diclofenac sodium 1 % topical gel 4 g topical QID 11/18/22 07/30/23 Previous Rx's Medication Instructions Recorded pyridoxine (vitamin B6) 100 mg 100 mg PO DAILY 90 days #90 tabs 01/10/23 tablet tizanidine 2 mg tablet 2 mg PO BID muscle spasticity 20 05/07/23 days #40 tabs pregabalin 75 mg capsule 75 mg PO DAILY 90 days #90 caps 06/18/23 nirmatrelvir 300 mg (150 mg See Rx Instructions PO .COMPLEX 06/26/23 x2)-ritonavir 100 mg tablet,dose #30 ea pack (Paxlovid) famotidine 40 mg tablet 40 mg PO DAILY #30 tabs 07/30/23 cefdinir 300 mg capsule 300 mg PO BID 7 days #14 caps 08/12/23 Allergies Allergy/AdvReac Type Severity Reaction Status Date / Time No Known Allergies Allergy Verified 07/30/23 11:39 [No Known Allergies*] Review of Systems Review of Systems Pertinent positives and negatives as stated in HPI PMFSH Past Medical History Source: nursing notes reviewed Medical History COVID-19 Preop exam for internal medicine Allergic rhinitis Hypertriglyceridemia History of ARDS Osteoarthritis of right patellofemoral joint Restless leg syndrome Retained ureteral stent History of kidney stones Renal stones Iliotibial band syndrome, right leg Surgical History History of esophagogastroduodenoscopy (EGD) Hx of left breast biopsy Hx of colonoscopy Hx of lithotripsy History of cholecystectomy Family History Family History Father No problems noted. Mother No problems noted. Social History Social History Housing: House Alcohol intake: current Patient Tobacco Use Status: Former Tobacco user Years Smoked: quit 1999 e-Cigarette/Vaping Use: Never Used Advance Directives: No service: No Current occupational status: retired Cognitive needs: No Hearing needs: No Vision needs: No Physical Exam ED Vital Signs: Vital Signs - 24 hr 08/12/23 12:10 08/12/23 19:31 Temperature 97.6 F Pulse Rate 60 64 Respiratory Rate 17 16 Blood Pressure 139/85 158/80 H Pulse Oximetry 97 97 Oxygen Delivery Method Room Air Room Air BMI result Body Mass Index 26.3 VITAL SIGNS: Reviewed. GENERAL: Well developed, well nourished, in no acute distress. HEAD: Normocephalic/atraumatic EYES: PERRLA, EOMI EARS: Ext canals without abnormality NOSE: Nares patent bilateral OROPHARYNX: no oral lesions noted, posterior pharynx clear NECK: Supple, no adenopathy LUNGS: Normal breath sounds. No adventitious sounds or accessory muscle use. SpO2<97> CARDIOVASCULAR: Regular rate and rhythm without noted murmurs ABDOMEN: Soft, left flank/suprapubic discomfort non-distended with bowel sounds. MUSCULOSKELETAL: No tenderness, deformities, or effusions noted on gross inspection. EXTREMITIES: No cyanosis, clubbing or edema. SKIN: Inspection of the skin reveals no rashes NEUROLOGIC: Alert and oriented x 4. Strength and sensation to light touch were grossly intact x 4. Course Course Course Narrative: RME: 67yo F w/PMHx w/PMHx gastritis, OA, renal stone, sent in by [facility] for possible diverticulitis flare. Admits to LLQ abd pain x5 days. denies N/V. Pt had recent colonsocopy that found polyp, internal hemorrhoids and diverticular disease Labs, UA ordered Full HPI, ROS and PE to be performed by primary ED provider. Medical Decision Making Medical Decision Making [facility] Narrative: 67-year-old female with history and clinical presentation, DDX: Renal colic, urinary tract infection, pyelonephritis, lower clinical suspicion for diverticulitis and I do not suspect strongly for renal colic given patient's calm demeanor. On review of all investigations hematologic indices are negative for leukocytosis or left shift, no anemia or thrombocytopenia. Chemistry indices are negative for FRACISCO and there is no electrolyte or liver enzyme abnormalities, lipase is within normal limits. Urinalysis is grossly positive for nitrites/leukocyte esterase in the presence of wbc's as well as urinary bacteria. Patient will be given initial antibiotics here and discharged on remaining course. My interpretation is that patient is likely suffering from a mild pyelonephritis/cystitis. She is otherwise discharged home in stable condition. Differential Diagnosis Differential Diagnoses: The differential diagnosis associated with the presentation includes Please see the discussion above Admission/Observation Consideration of admission/observation: Escalation of care including admission/observation considered Please see the discussion above Lab Data [facility] Lab Attestation statement: I reviewed the patient's lab results. Please see the discussion above 08/12/23 13:49 08/12/23 13:49 Labs: Lab Results 08/12/23 Range/Units 13:49 WBC 7.2 (4.8-10.8) X10*3/uL RBC 4.79 (4.20-5.50) X10*6/uL Hgb 14.5 (12.0-16.0) g/dl Hct 44.5 (37.0-47.0) % MCV 92.9 (80.0-98.0) fL MCH 30.3 (27.0-33.0) pg MCHC 32.6 (31.0-35.0) g/dl RDW 13.3 (11.0-16.0) % Plt Count 258 (160-400) X10*3/uL MPV 10.9 (9.4-12.3) fL Immature Gran % (Auto) 0.3 (0.0-0.4) % Neut % (Auto) 66.0 (45-73) % Lymph % (Auto) 26.0 (20-40) % Cotton % (Auto) 5.9 (2-11) % Eos % (Auto) 1.1 (0-4) % Baso % (Auto) 0.7 (0-2) % Lymph # (Auto) 1.9 (1.2-4.9) X10*3/uL Cotton # (Auto) 0.4 (0.1-1.2) X10*3/uL Eos # (Auto) 0.1 (0.0-0.4) X10*3/uL Baso # (Auto) 0.1 (0.0-0.2) X10*3/uL Abs Immat Gran (auto) 0.02 (0.00-0.03) X10*3/uL Absolute Neuts (auto) 4.8 (2.0-8.3) x10*3/uL Absolute Nucleated RBC 0.000 (0.0-0.012) X10*3/uL Nucleated RBC % (auto) 0.0 (0.0-0.2) /100WBC Sodium 141 (135-145) mmol/L Potassium 4.0 (3.3-5.1) mmol/L Chloride 110 H (96-108) mmol/L Carbon Dioxide 21 L (22-29) mmol/L Anion Gap 14 (12-20) BUN 15 (9-16) mg/dL Creatinine 0.84 (0.5-1.4) mg/dL Estim Creat Clear Calc 58.2 Estimated GFR > 60 Random Glucose 85 (60-115) mg/dL Calcium 10.4 H D (8.4-10.2) mg/dL Magnesium 2.3 (1.6-2.6) mg/dL Total Bilirubin 0.3 (0.0-1.0) mg/dL Direct Bilirubin 0.1 (0.0-0.5) mg/dL AST 28 (5-31) U/L ALT 21 (0-31) U/L Alkaline Phosphatase 108 (39-117) U/L Total Protein 7.9 (6.5-8.0) g/dL Albumin 4.6 (3.5-5.0) g/dL Lipase 36 (8-78) U/L Urine Color Yellow Urine Appearance Clear Urine pH 6.0 (5.0-9.0) Ur Specific [place] <= 1.005 (1.005-1.025) Urine Protein Negative (Neg-Trace) mg/dL Urine Glucose (UA) Negative (Negative) mg/dL Urine Ketones Negative (Negative) mg/dL Urine Blood Negative (Negative) Urine Nitrite Positive H (Negative) Ur Leukocyte Esterase Small (1+) H (Negative) Urine RBC 0-2 (0-2) /HPF Urine WBC 11-20 H (0-5) /HPF Ur Squamous Epith Cells 0-2 (0-2) /HPF Urine Bacteria 4+ (None Seen) Hyaline Casts 0-2 (0-2) /LPF External Record Review External record reviewed: Outpatient record, Prior outpatient labs and Prior outpatient radiology Medications Administered Discontinued Medications Generic Name Dose Route Start Last Admin Trade Name Jesusq PRN Reason Stop Dose Admin Acetaminophen 975 mg 08/12/23 19:27 08/12/23 19:36 Acetaminophen 325 Mg Tablet PO 08/12/23 19:28 975 mg ONCE ONE Administration Cefuroxime Axetil 500 mg 08/12/23 19:27 08/12/23 19:36 Cefuroxime Axetil 500 Mg Tablet PO 08/12/23 19:28 500 mg ONCE ONE Administration Discharge Plan Discharge Clinical Impression: Cystitis, Pyelonephritis Patient Disposition: Home, Self-Care Instructions: Urinary Tract Infection in Women (ED), Kidney Infection (ED) Additional Instructions: 1. Resume all home medications as prescribed. 2. Complete the entire course of antibiotics as prescribed. Continue to drink plenty of water as you have been. 3. I recommend that you follow-up with your primary care doctor and your urologist within the next 2-3 days. Return to the ER with any worsening symptoms. Prescriptions: New cefdinir 300 mg capsule 300 mg PO BID 7 Days Qty: 14 0RF No Action pyridoxine (vitamin B6) 100 mg tablet 100 mg PO DAILY 90 Days Qty: 90 2RF tizanidine 2 mg tablet 2 mg PO BID 20 Days Qty: 40 0RF Rx Instructions: Increase frequency to b.i.d. dosing pregabalin 75 mg capsule 75 mg PO DAILY 90 Days Qty: 90 2RF Paxlovid 300 mg (150 mg x 2)-100 mg tablets,dose pack See Rx Instructions PO .COMPLEX Qty: 30 0RF Rx Instructions: take TWO 150 mg tablets of nirmatrelvir with ONE 100 mg tablet of ritonavir twice daily for 5 days PO acetaminophen [Tylenol] 325 mg capsule 325 mg PO QID PRN (Reason: Pain) diclofenac sodium 1 % gel 4 g topical QID famotidine 40 mg tablet 40 mg PO DAILY Qty: 30 5RF Referrals: Gilles Banks MD [Physician] - Francesco Mcdonough PA-C [Primary Care Provider] - Interventions: ED Discharge Assessment Last Done: 08/12/23 19:40 Discharge Date/Time: 08/12/23 19:40
[2023-08-12 13:58] LABS: MANUAL DIFF FLAG NO
[2023-08-12 14:00] LABS: Basophils Absolute Auto 0.1 X10*3/uL (0.0-0.2); Basophils Percent Auto 0.7 % (0-2); Eosinophils Absolute Auto 0.1 X10*3/uL (0.0-0.4); Eosinophils Percent Auto 1.1 % (0-4); Hematocrit 44.5 % (37.0-47.0); Hemoglobin 14.5 g/dl (12.0-16.0); Imm Gran Abs Auto 0.02 X10*3/uL (0.00-0.03); Imm Gran Pct Auto 0.3 % (0.0-0.4); Lymphocytes Absolute Auto 1.9 X10*3/uL (1.2-4.9); Mean Corpuscular HGB Conc 32.6 g/dl (31.0-35.0); Mean Corpuscular Hemoglobin 30.3 pg (27.0-33.0); Mean Corpuscular Volume 92.9 fL (80.0-98.0); Mean Platelet Volume 10.9 fL (9.4-12.3); Monocytes Absolute Auto 0.4 X10*3/uL (0.1-1.2); Monocytes Percent Auto 5.9 % (2-11); Neutrophils Absolute Auto 4.8 x10*3/uL (2.0-8.3); Platelet Count 258 X10*3/uL (160-400); Red Blood Count 4.79 X10*6/uL (4.20-5.50); Red Cell Distribution Width 13.3 % (11.0-16.0); White Blood Count 7.2 X10*3/uL (4.8-10.8)
[2023-08-12 14:14] LABS: Alanine Aminotransferase 21 U/L (0-31); Albumin Level 4.6 g/dL (3.5-5.0); Alkaline Phosphatase 108 U/L (39-117); Anion Gap 14 (12-20); Aspartate Amino Transferase 28 U/L (5-31); Bilirubin Direct 0.1 mg/dL (0.0-0.5); Bilirubin Total 0.3 mg/dL (0.0-1.0); Blood Urea Nitrogen 15 mg/dL (9-16); Calcium 10.4 mg/dL (8.4-10.2); Carbon Dioxide 21 mmol/L (22-29); Chloride 110 mmol/L (96-108); Creatinine Clr Calc Pharmacy 58.2; Estimated Glomerular Filt Rate > 60; Glucose Random 85 mg/dL (60-115); Lipase 36 U/L (8-78); Magnesium 2.3 mg/dL (1.6-2.6); Sodium 141 mmol/L (135-145); Total Protein 7.9 g/dL (6.5-8.0)
[2023-08-12 14:18] LABS: Appearance Urine Clear; Color Urine Yellow; Glucose Urine UA Negative (Negative); Leukocyte Esterase Urine Small (1+) (Negative); Nitrite Urine Positive (Negative); Specific Gravity - Urine <= 1.005 (1.005-1.025); UMIC TRIGGER UACC YES; Urine Blood Negative (Negative); Urine Ketones Negative (Negative); Urine Protein Negative (Neg-Trace)
[2023-08-12 14:28] LABS: Bacteria Urine 4+ (None Seen); Hyaline Casts Urine 0-2 /LPF (0-2); RBC Urine 0-2 /HPF (0-2); Squamous Epithelial Cell Urine 0-2 /HPF (0-2); UACC Culture Trigger YES
[2023-08-12 19:31] VITALS: BP 158/80; PULSE 64; RESP 16; O2SAT 97
[2023-08-12] MEDS: cefuroxime axetiL 500 MG TABLET PO (19:36)
[2023-08-12] MEDS: Acetaminophen 325 MG TABLET 975 MG PO (19:36)
== END 2023-08-12 19:40 | disposition home or self-care (01) ==
PROVIDERS: Physician Assistant; Emergency Provider Student in an Organized Health Care Education/Training Program; PCP Physician Assistant
DX: N30.90 Cystitis, unspecified without hematuria (principal); N12 Tubulo-interstitial nephritis, not specified as acute or chronic; R53.83 Other fatigue; R10.32 Left lower quadrant pain; Z79.899 Other long term (current) drug therapy; Z87.442 Personal history of urinary calculi
CPT/HCPCS: 36415; 80048; 80076; 81001; 81003; 83690; 83735; 85025; 87086; 87088; 87186; 99283; 99284

== ENCOUNTER 2023-08-13 09:57 | Outpatient (AMB) | payer MEDICARE, BC, OTHER, SELFPAY ==
[2023-08-13 10:02] VITALS: BP 148/80; PULSE 60; O2SAT 99; BMI 26.0
--- NOTE | 2023-08-13 10:02 | A.OFFVIS_ITS ---
Intake Vital Signs 08/13/23 10:02 Height 5 ft 3 in Weight 147 lb BMI 26.0 BP 148/80 H Blood Pressure Location Lt brachial Position Sitting Pulse 60 Pulse Source Pulse Oximeter Pulse Oximetry (%) 99 Oxygen Delivery Method Room Air Intake Visit Reasons: swv [id number] Intake Note: Patient is here for an Annual Wellness Visit. Allergies No Known Allergies [No Known Allergies*] Allergy (Verified 08/13/23 10:12) Medication List - Last Reconciled 08/13/23 by JOHANNE Guidry acetaminophen (Tylenol) 325 mg PO QID PRN cefdinir 300 mg PO BID 7 days diclofenac sodium 1% 4 grams topical QID famotidine 40 mg PO DAILY pregabalin 75 mg PO DAILY 90 days pyridoxine (vitamin B6) 100 mg PO DAILY 90 days tizanidine 2 mg PO BID 20 days HPI swv [id number] HPI Details Patient is a 67-year-old female who presents today for subsequent wellness visit. Patient of ADDIE Mcdonough. Today we discussed patient's need for bone density screening. Up-to-date with immunizations. Mammogram normal 06/2023. Colonoscopy 07/2023 and repeat in [address] Escoto. [place] of care was reviewed with the patient and she was provided with a screening schedule. End of life planning was discussed with the patient and she was provided with healthcare proxy and MOLST forms. [facility] Medical History (Updated 08/13/23 @ 10:31 by JOHANNE Guidry) Cough COVID-19 Preop exam for internal medicine Allergic rhinitis Hypertriglyceridemia History of ARDS Osteoarthritis of right patellofemoral joint Restless leg syndrome Retained ureteral stent History of kidney stones Renal stones Iliotibial band syndrome, right leg Surgical History History of esophagogastroduodenoscopy (EGD) Hx of left breast biopsy Hx of colonoscopy Hx of lithotripsy History of cholecystectomy Family History Father No problems noted. Mother No problems noted. Social History Housing: House Alcohol intake: current Patient Tobacco Use Status: Former Tobacco user Years Smoked: quit 1999 e-Cigarette/Vaping Use: Never Used service: No Current occupational status: retired Cognitive needs: No Hearing needs: No Vision needs: No Questionnaire Medicare Wellness Checkup What [age] What gender do you identify with?: female During the past 4 weeks, how much have you been bothered by emotional problems such as feeling anxious, depressed, irritable, sad or downhearted, and blue?: slightly During the past 4 weeks, has your physical & emotional health limited your social activities with family, friends, neighbors, or groups?: slightly During the past 4 weeks, how much bodily pain have you generally had?: moderate pain During the past 4 weeks, was someone available to help you if you needed & wanted help?: yes, as much as I wanted During the past 4 weeks, what was the hardest physical activity you could do for at least 2 minutes?: moderate Can you get to places out of walking distance without help? (For eg., can you travel alone on buses, taxis or drive your car?): Yes Can you go shopping for groceries or clothes without someone's help?: Yes Can you prepare your own meals?: Yes Can you do your housework without help?: Yes Because of any health problems, do you need the help of another person with your personal care needs such as eating, bathing, dressing or getting around the house?: Yes Can you handle your own money without help?: Yes During the past 4 weeks, how would you rate your health in general?: good During the past 4 weeks how have things been going for you?: pretty well Are you having difficulties driving your car?: no Do you always fasten your seat belt when you are in a car?: yes, usually During past 4 weeks, have you been bothered by the following: never: Falling or dizzy when standing up, Sexual problems?, Teeth or denture problems? and Problems using the telephone? and seldom: Trouble eating well? and Tiredness or fatigue? Have you fallen 2 or more times in the past year?: No Are you afraid of falling?: No Are you a smoker?: no During the past 4 weeks, how many drinks of wine, beer, or other alcoholic beverages did you have?: 1 drink or less per week Do you exercise for about 20 minutes 3 or more times a week?: yes, most of the time Have you been given information to help with the following?: no: Hazards in your house that might hurt you? and no: Keeping track of your medications? How often do you have trouble taking medicines the way you have been told to take them?: I always take medicine as prescribed How confident are you that you can control & manage most of your health problems?: very confident What is your race?: White Mini Mental State Exam (MMSE) Orientation What is the (year) (season) (date) (day) (month)?: year, season, date, day and month Score Score: 5 Activity of Daily Living Bathing - sponge bath, tub bath or shower: receives no assistance (gets in/out by self, if usual bathing means Dressing - getting clothes from closets & drawers, including inner/outer garments & fasteners.: gets clothes & gets completely dressed without help Toileting - going to the 'toilet room' for urine/bowel elimination & cleaning self/arranging clothes: goes to toilet room, cleans self, arranges clothes without help Transfer: moves in & out of bed and chair without help (may use support object) Continence: controls urination/bowel movements completely by self Feeding: feeds self without help Total Score: 0 Information obtained from: patient Using telephone: independent Traveling: independent Shopping: independent Preparing meals: independent Housework: independent Taking medicine: independent Managing money: independent PHQ-9 Over the last 2 weeks, how often have you been bothered by any of the following problems? 1. Little interest or pleasure in doing things: not at all 2. Feeling down, depressed, or hopeless: not at all 3. Trouble falling or staying asleep, or sleeping too much: several days 4. Feeling tired or having little energy: several days 5. Poor appetite or overeating: several days 6. Feeling bad about yourself - or that you are a failure or have let yourself or your family down: not at all 7. Trouble concentrating on things, such as reading the newspaper or watching television: not at all 8. Moving or speaking so slowly that other people could have noticed. Or the opposite - being so fidgety or restless that you have been moving around a lot more than usual: not at all 9. Thoughts that you would be better off or of hurting yourself in some way: not at all Total score: 3 Depression Screening Interpretation: Negative Depression Screening Done: Yes [id number] - PHQ-9 Billing: Yes Source: Developed by Drs. Mian Johns, Michelle Baltazar, Owen Castellano and colleagues, with an educational mi from [employer]. Physical Exam Vital Signs: Last Vital Signs Pulse 60 08/13/23 10:02 BP 148/80 H 08/13/23 10:02 Pulse Ox 99 08/13/23 10:02 Oxygen Delivery Method Room Air 08/13/23 10:02 BMI result Body Mass Index 26.0 Const General: cooperative and no acute distress Orientation/consciousness: patient oriented x3 HEENT Other: Whisper test: pass Neuro Other: Balance: Normal Get up and walk: able to Romberg: negative Tandem gait: able to General: patient oriented x3 Assessment & Plan Assessment & Plan (1) Post-menopausal: Code(s): Z78.0 - Asymptomatic menopausal state (2) Kidney stone on left side: Code(s): N20.0 - Calculus of kidney Plan: Continue to follow-up with [facility] (3) Hypertriglyceridemia: Code(s): E78.1 - Pure hyperglyceridemia Plan: Low-cholesterol diet (4) RLS (restless legs syndrome): Code(s): G25.81 - Restless legs syndrome Plan: Patient is on pregabalin 75 mg daily (5) Adult general medical exam: Code(s): Z00.00 - Encounter for general adult medical examination without abnormal findings (6) Pyelonephritis: Code(s): N12 - Tubulo-interstitial nephritis, not specified as acute or chronic Plan: Was seen in [facility] yesterday and started on cefdinir Increase fluid consumption Notify office if no improvement after finishing antibiotic (7) GERD (gastroesophageal reflux disease): Code(s): K21.9 - Gastro-esophageal reflux disease without esophagitis Qualifiers: Esophagitis presence: without esophagitis Qualified Code(s): K21.9 - Gastro-esophageal reflux disease without esophagitis Plan: Continue famotidine Avoid GERD trigger foods Orders: Orders XR DEXA axial skeleton Today Z78.0 - Asymptomatic menopausal state Quality Reporting (2019) Depression/Bipolar (159/160/161/177) PHQ-9: Total score: 3 Coding Level of Care Code Medicare Subsequent (G0439) Diagnoses Post-menopausal Z78.0 Kidney stone on left side N20.0 Hypertriglyceridemia E78.1 RLS (restless legs syndrome) G25.81 Adult general medical exam Z00.00 Pyelonephritis N12 Gastroesophageal reflux disease without esophagitis K21.9 Esophagitis presence: without esophagitis CPT Codes Advance Care Planning - Time spent: 1-15 minutes, not on file ([id number]) Advance Care Planning Date of discussion: 08/13/23 Who was present: pt and monitoring coordinator Forms completed: None Time spent: 1-15 minutes, not on file Actual minutes spent: 3 Did not discuss due to Cultural/Spiritual beliefs: No
== END 2023-08-13 10:30 | disposition home or self-care (01) ==
PROVIDERS: Visit Provider Nurse Practitioner Family
DX: Z78.0 Asymptomatic menopausal state (principal); N20.0 Calculus of kidney; E78.1 Pure hyperglyceridemia; G25.81 Restless legs syndrome; Z00.00 Encounter for general adult medical examination without abnormal findings; N12 Tubulo-interstitial nephritis, not specified as acute or chronic; K21.9 Gastro-esophageal reflux disease without esophagitis
CPT/HCPCS: 1124F; G0439

== ENCOUNTER 2023-09-11 11:00 | Outpatient (REF) | payer MEDICARE, BC, OTHER, SELFPAY ==
--- NOTE | ~2023-09-11 | MM_ITS ---
EXAMINATION: BONE DENSITOMETRY CLINICAL INDICATION: Menopause. COMPARISON: Baseline BD dated 06/22/2021. TECHNIQUE: Using a [employer] DXA System (software version: 13.1) manufactured by [employer], dual-energy x-ray absorptiometry was performed of the lumbar spine and left hip. The images are of good technical quality. Summary results are attached. FINDINGS: LEFT FEMUR, NECK: Current: BMD 0.704 g/cm2, Z-score -0.7, T-score -2.4, osteopenia. Baseline: BMD 0.792 g/cm2. LEFT FEMUR, TOTAL: Current: BMD 0.779 g/cm2, Z-score -0.4, T-score -1.8, osteopenia, 4.2% decrease from baseline (<5% change is not significant). Baseline: BMD 0.813 g/cm2. AP SPINE L1-L2 (excluding L3 and L4): The data of L1-L4 has been changed to exclude the L3 and L4 vertebral bodies, because degenerative sclerosis at these levels may cause overestimation of lumbar spine density. Current: BMD 1.102 g/cm2, Z-score 1.2, T-score -0.5, normal, 3.8% decrease from baseline (<5% change is not significant). Baseline: BMD 1.146 g/cm2. IDENTIFIED RISK FACTORS: Menopause, osteoporosis, height loss. HISTORY OF FRACTURE: None listed. MEDICATIONS: None listed. MM/XR DEXA axial skeleton IMPRESSION: 1. DIAGNOSIS: Osteopenia based on the lowest T-score value of -2.4 in the femoral neck applying World Health Organization criteria. 2. 10-YEAR FRACTURE RISK PREDICTION, FRAX: Major osteoporotic fracture (clinical spine, forearm, hip or shoulder) 14.3%. Hip fracture 3.5%. 3. Treatment Recommendations: NOF guidelines recommend consideration for treatment in postmenopausal women and men age 50 and older presenting with the following: -A hip or vertebral (clinical or morphometric) fracture. -T-score less than or equal to -2.5 at the femoral neck or spine after appropriate evaluation to exclude secondary causes. -Low bone mass at the hip or spine and a 10-year fracture probability by FRAX of greater than or equal to 3% for hip fracture or greater than or equal to 20% for major osteoporotic fracture based on the [place] adapted WHO algorithm. 4. Other Recommendations: All treatment decisions require clinical judgment and consideration of individual patient factors, including patient preferences, comorbidities, previous drug use, risk factors not captured in the FRAX model (e.g. frailty, falls, vitamin D deficiency, increased bone turnover, interval significant decline in bone density) and possible under or overestimation of fracture risk by FRAX. Additional medical evaluation for secondary cause of low bone mineral density may be appropriate. FUTURE SCAN RECOMMENDATION: People with diagnosed cases of osteoporosis or at high risk for fracture should have regular bone mineral density tests. For patients eligible for Medicare, routine testing is allowed once every 2 years. The testing frequency can be increased to one year for patients who have rapidly progressing disease, those who are receiving or discontinuing medical therapy to restore bone mass, or have additional risk factors.
== END 2023-09-11 11:01 | disposition home or self-care (01) ==
LOC: HO.MAMMO 11:00
PROVIDERS: PCP Physician Assistant; Visit Provider Nurse Practitioner Family
DX: Z13.820 Encounter for screening for osteoporosis (principal); Z78.0 Asymptomatic menopausal state
CPT/HCPCS: 77080

== ENCOUNTER 2023-09-17 10:50 | Outpatient (REF) | payer MEDICARE, BC, OTHER, SELFPAY ==
[2023-09-17 12:01] LABS: Appearance Urine Clear; Color Urine Yellow; Glucose Urine UA Negative (Negative); Leukocyte Esterase Urine Trace (Negative); Nitrite Urine Negative (Negative); PH 6.5 (5.0-9.0); Specific Gravity - Urine <= 1.005 (1.005-1.025); UMIC TRIGGER UACC YES; Urine Blood Negative (Negative); Urine Ketones Negative (Negative); Urine Protein Negative (Neg-Trace)
[2023-09-17 12:07] LABS: Bacteria Urine None Seen (None Seen); Hyaline Casts Urine 0-2 /LPF (0-2); RBC Urine 0-2 /HPF (0-2); Squamous Epithelial Cell Urine 0-2 /HPF (0-2); UACC Culture Trigger YES
== END 2023-09-17 10:51 | disposition home or self-care (01) ==
LOC: HO.LAB 10:50
PROVIDERS: PCP Physician Assistant; Visit Provider Physician Assistant
DX: R39.9 Unspecified symptoms and signs involving the genitourinary system (principal)
CPT/HCPCS: 81001; 81003; 87086; 87088; 87186

== ENCOUNTER 2023-10-07 11:17 | Outpatient (REF) | payer MEDICARE, BC, OTHER, SELFPAY ==
[2023-10-07 12:30] LABS: Appearance Urine Clear; Color Urine Yellow; Glucose Urine UA Negative (Negative); Leukocyte Esterase Urine Negative (Negative); Nitrite Urine Negative (Negative); PH 5.5 (5.0-9.0); Specific Gravity - Urine <= 1.005 (1.005-1.025); Urine Blood Negative (Negative); Urine Ketones Negative (Negative); Urine Protein Negative (Neg-Trace)
[2023-10-07 12:35] LABS: Bacteria Urine None Seen (None Seen); Hyaline Casts Urine 0-2 /LPF (0-2); RBC Urine 0-2 /HPF (0-2); Squamous Epithelial Cell Urine 0-2 /HPF (0-2); WBC Urine 0-5 /HPF (0-5)
[2023-10-07 12:53] LABS: Vitamin D 25-OH Total 25.4 ng/mL (>30)
== END 2023-10-07 11:18 | disposition home or self-care (01) ==
LOC: HO.LAB 11:17
PROVIDERS: Absent Provider Nurse Practitioner Family; PCP Physician Assistant; Visit Provider Urology
DX: M85.80 Other specified disorders of bone density and structure, unspecified site (principal); N20.0 Calculus of kidney
CPT/HCPCS: 36415; 81001; 82306; 87086

== ENCOUNTER 2023-10-24 14:27 | Outpatient (REF) | payer MEDICARE, BC, OTHER, SELFPAY ==
[2023-10-24 15:39] LABS: Appearance Urine Clear; Color Urine Yellow; Glucose Urine UA Negative (Negative); Leukocyte Esterase Urine Negative (Negative); Nitrite Urine Negative (Negative); Urine Blood Negative (Negative); Urine Ketones Negative (Negative); Urine Protein Negative (Neg-Trace)
[2023-10-24 15:47] LABS: Bacteria Urine None Seen (None Seen); Hyaline Casts Urine 0-2 /LPF (0-2); RBC Urine 0-2 /HPF (0-2); Squamous Epithelial Cell Urine 0-2 /HPF (0-2); WBC Urine 0-5 /HPF (0-5)
== END 2023-10-24 14:28 | disposition home or self-care (01) ==
LOC: HO.LAB 14:27
PROVIDERS: PCP Physician Assistant; Visit Provider Urology
DX: N20.0 Calculus of kidney (principal)
CPT/HCPCS: 81001; 87086

== ENCOUNTER 2023-10-30 11:30 | Outpatient (REF) | payer MEDICARE, BC, OTHER, SELFPAY ==
--- NOTE | ~2023-10-30 | XR_ITS ---
EXAMINATION: XR ABDOMEN COMPLETE CLINICAL INDICATION: Renal stones COMPARISON: KUB 12/11/2022 TECHNIQUE: AP view of the abdomen. FINDINGS: Lines or devices: Right upper quadrant cholecystectomy clips. Nonobstructive bowel gas pattern. Moderate colonic stool burden. Calcified phleboliths in the pelvis. 4 mm radiodensity overlying the left mid renal pole which could potentially reflect a renal stone versus overlying intrinsically dense bowel contents, new from prior KUB. Degenerative disc disease in the visualized lower lumbosacral spine. XR/XR KUB IMPRESSION: 1. 4 mm radiodensity overlying the left mid renal pole which could potentially reflect a renal stone versus overlying intrinsically dense bowel contents, new from prior KUB.
--- NOTE | ~2023-10-30 | US_ITS ---
EXAMINATION: US RETROPERITONEAL LIMITED (RENAL ONLY) CLINICAL INFORMATION: Calculus of kidney. COMPARISON: Renal ultrasound 07/14/2023 TECHNIQUE: Real-time ultrasound of the kidneys FINDINGS: RIGHT KIDNEY: 9.1 x 3.7 x 4.8 cm (SAG x AP x TRV). The kidney is normal in size, contour, and echogenicity. Renal cortical thickness is normal. No calculi or focal parenchymal lesions. No hydronephrosis. There is minimal fullness of the renal pelvis. LEFT KIDNEY: 10.0 x 4.1 x 4.1 cm (SAG x AP x TRV). The kidney is normal in size and echogenicity. Slightly lobulated contour. Renal cortical thickness is normal. No hydronephrosis. There is a 0.4 x 0.5 x 0.4 cm simple lower pole cyst for which no follow-up is recommended. 0.2 x 0.4 x 0.3 cm nonobstructing calculus is seen in the lower pole. US/US renal BI IMPRESSION: 1. Normal appearance of the right kidney. 2. 0.4 cm nonobstructing calculus in the lower pole of the left kidney..
== END 2023-10-30 11:31 | disposition home or self-care (01) ==
LOC: HO.US 11:30
PROVIDERS: PCP Physician Assistant; Visit Provider Urology
DX: N20.0 Calculus of kidney (principal)
CPT/HCPCS: 74018; 76775

== ENCOUNTER 2023-11-04 15:20 | Outpatient (AMB) | payer MEDICARE, BC, OTHER, SELFPAY ==
--- NOTE | 2023-11-04 15:25 | A.OFFVIS_ITS ---
Intake Intake Visit Reasons: KUB/Pain Intake Note: Patient is Present for Telephone Follow Up Urology Med: Vitamin B6, Tamsulosin Antibiotic Allergy: None Blood Thinner: None Allergies No Known Allergies [No Known Allergies*] Allergy (Verified 11/04/23 15:27) HPI HPI Comments History of Present Illness Details Elvira is a pleasant female. She is a patient of Dr. Mcdonough. She is seen for the following urologic conditions - nephrolithiasis Telemedicine Evaluation 15 min Consultation DoxPictarine Ngozi Video Persistent intermittent discomfort left side Discussed imaging which is relatively benign Would like to move ahead with left ureteroscopy based on symptoms Nephrolithiasis Interventions - spring 2019 left ureteroscopy with stent - 01/31 left ESWL - 01/02 Left ESWL Imaging - 07/02 ultrasound small left renal stone - 12/31 ultrasound 6 mm left renal stone - 08/03 renal ultrasound left cortical thinning, 2 x 6 mm stones - 11/04 KUB faint 5 mm left - 01/02 renal ultrasound bilateral small cysts no stones - 11/04 renal ultrasound and KUB with faint 4 mm left Therapeutic plan - increase fluid intake, lemon water, vitamin B6, oxalate avoidance PFSH Medical History Cough COVID-19 Preop exam for internal medicine Allergic rhinitis Hypertriglyceridemia History of ARDS Osteoarthritis of right patellofemoral joint Restless leg syndrome Retained ureteral stent History of kidney stones Renal stones Iliotibial band syndrome, right leg Surgical History History of esophagogastroduodenoscopy (EGD) Hx of left breast biopsy Hx of colonoscopy Hx of lithotripsy History of cholecystectomy Family History Father No problems noted. Mother No problems noted. Social History Housing: House Alcohol intake: current Patient Tobacco Use Status: Former Tobacco user Years Smoked: quit 1999 e-Cigarette/Vaping Use: Never Used service: No Current occupational status: retired Cognitive needs: No Hearing needs: No Vision needs: No Review of Systems Const All systems reviewed & are unremarkable except as noted in HPI and below Reports no additional complaints Resp Reports no additional complaints GI Reports no additional complaints Reports as per HPI Musc Reports no additional complaints Physical Exam Telemedicine evaluation Appropriate responses Regular breathing rate and rhythm HEENT Head: Yes normal to inspection Ears: hearing grossly normal bilaterally Eyes General: appearance normal, both eyes and all related structures Neck Neck: Yes normal visual inspection Chest Chest palpation & inspection: normal inspection of the chest Resp Effort & Inspection: normal respiratory effort and able to speak in complete sentences Assessment & Plan Assessment & Plan (1) Kidney stone on left side: Code(s): N20.0 - Calculus of kidney Plan Ureteroscopy We discussed the nature of the decision and reasonable alternatives for performing ureteroscopy. Options such as medical therapy were discussed. Interventions include chemical dissolution, ESWL, ureteroscopy with laser lithotripsy and stent placement, PCNL. The relative uncertainties and benefits related to each alternate procedure were adequately discussed. General surgical risks including, but not limited to - pain, bleeding, infection, myocardial infarction, pulmonary embolus, deep vein thrombosis and cerebrovascular accident which may result in further hospitalization were discussed. Full disclosure of the procedure as well as all major risks, benefits and complications were discussed including but not limited to damage to the urethra, bladder and kidney infection, damage to the ureter, stent migration or malpositi on, scarring to the renal pelvis, remnant stone fragments, subsequent stone passage with need for secondary procedures. The overall secondary procedure rate is approximately 10-15%. The overall clearance rate is approximately 90-95%. Success of the procedure in the short-term does not necessarily guarantee that long-term success will be maintained. Suitable follow up will need to be maintained. The patient showed understanding of discussion and wishes to proceed with - cystoscopy, retrograde, ureteroscopy, possible lithotripsy/stone basketing and stent on the left side Patient Instructions: Imaging studies, laboratory and physical exam results were discussed and reviewed in detail. No major barriers to patient understanding were identified. An opportunity to ask questions regarding the treatment plan was provided. All questions were answered. The patient expressed understanding and agreement with the above treatment plan. The patient is aware they should contact our office by phone for worsening of their current condition or the appearance of new urologic symptoms. Compliance is encouraged with any medications and followup testing that is ordered. It is a privilege to participate in the urologic care of your patient. If you have any questions or concerns regarding treatment for the above conditions, or other urologic issues, please do not hesitate to contact me. The office telephone contact is [phone]. This note is constructed using voice recognition software. While every effort has been made to ensure accuracy medical chemist errors may have been included. Yours sincerely, Dr Gilles Banks MD, PAKO [facility] - Urology Providers of Expert, Compassionate Care for the Genitourinary System Telehealth Telehealth Location of provider rendering services: practice address Location of patient: address on file Patient Identification confirmed using: Name, : Yes Telehealth method: video Patient verbally consented to treatment: Yes Patient verbally consented to billing insurance company: Yes Patient informed of any privacy concerns related to visit: Yes Coding Level of Care Code Tele Est Pt Level 4 (67694) Diagnoses Kidney stone on left side N20.0
== END 2023-11-04 15:57 | disposition home or self-care (01) ==
LOC: HO.HUSH 15:20
PROVIDERS: PCP Physician Assistant; Visit Provider Urology
DX: N20.0 Calculus of kidney (principal)
CPT/HCPCS: 99214

== ENCOUNTER → 2023-11-04 15:20 | Outpatient (BNVA) | payer MEDICARE, BC, OTHER, SELFPAY | PROVIDERS: PCP Physician Assistant; Visit Provider Urology ==

== ENCOUNTER 2023-12-15 09:51 | Outpatient (AMB) | payer MEDICARE, BC, OTHER, SELFPAY ==
--- NOTE | 2023-12-15 09:54 | A.OFFPC_ITS ---
Vital Signs 12/15/23 09:56 Height 5 ft 3 in Weight 149 lb 6 oz BMI 26.5 BP 110/58 L Blood Pressure Location Lt brachial Position Sitting Respiration 16 Pulse 66 Pulse Source Pulse Oximeter Pulse Oximetry (%) 98 Oxygen Delivery Method Room Air Intake Visit Reasons: D Distribution Lead Required: No Accompanied by: Self / Same As Patient Allergies No Known Allergies [No Known Allergies*] Allergy (Verified 12/15/23 10:00) Medication List - Last Reconciled 12/15/23 by Francesco Mcdonough PA-C acetaminophen (Tylenol) 325 mg PO QID PRN cefdinir 300 mg PO BID 7 days famotidine 40 mg PO DAILY nitrofurantoin monohyd/m-cryst 100 mg (Macrobid) 100 mg PO BID 10 days nystatin 5 mL PO BID PRN 10 days pregabalin 75 mg PO DAILY 90 days pyridoxine (vitamin B6) 100 mg PO DAILY 90 days sulfamethoxazole-trimethoprim 800-160 mg (Bactrim DS) 1 tab PO BID 14 days tamsulosin (Flomax) 0.4 mg PO BEDTIME 30 days tizanidine 2 mg PO BID 20 days tramadol 50 mg PO Q8H PRN Tobacco use date assessed: 12/15/23 Fall risk assessment: No Falls in past year Last assessed Fall Risk: 12/15/23 Dental Screening Dental Screen Date: 12/15/23 Did you have a dental visit in the last 12 months?: Yes Did you have a dental problem in the last 6 months where you did not have access to dental care?: No Was dental information given to patient?: Patient has dentist HPI HLD HPI Details Patient is a 68-year-old female here today for follow-up visit.? Patient has a past medical history significant for nephrolithiasis, restless legs syndrome. Concern--> at about of left lower abdominal pain and was found to UTI and another kidney stone. Her symptoms currently have resolved. Of note she does use tizanidine 2 mg on a p.r.n. basis usually at night for her neck pain. Nephrolithiasis:? Patient followed by Urology, under surveillance for her nephrolithiasis with ultrasounds of her kidneys. Most recent ultrasound without any evidence of nephrolithiasis RLS:? She continues Lyrica 75 mg daily with good effect on reducing her restless leg symptoms. .. Borderline high cholesterol: Patient continues to work on lifestyle modifications to reduce her borderline high cholesterol. Most recent cholesterol panel showing total cholesterol 232. Laboratory Tests 06/06/23 10/07/23 08:47 11:39 Cholesterol 232 H LDL Cholesterol, C alc 141 H 25-OH Vitamin D To dian 25.4 L PFSH Medical History Cough COVID-19 Preop exam for internal medicine Allergic rhinitis Hypertriglyceridemia History of ARDS Osteoarthritis of right patellofemoral joint Restless leg syndrome Retained ureteral stent History of kidney stones Renal stones Iliotibial band syndrome, right leg Surgical History History of esophagogastroduodenoscopy (EGD) Hx of left breast biopsy Hx of colonoscopy Hx of lithotripsy History of cholecystectomy Family History Father No problems noted. Mother No problems noted. Social History Housing: House Alcohol intake: current Patient Tobacco Use Status: Former Tobacco user Years Smoked: quit 1999 e-Cigarette/Vaping Use: Never Used service: No Current occupational status: retired Cognitive needs: No Hearing needs: No Vision needs: No Questionnaire PHQ-9 Over the last 2 weeks, how often have you been bothered by any of the following problems? 1. Little interest or pleasure in doing things: not at all 2. Feeling down, depressed, or hopeless: not at all 3. Trouble falling or staying asleep, or sleeping too much: not at all 4. Feeling tired or having little energy: not at all 5. Poor appetite or overeating: not at all 6. Feeling bad about yourself - or that you are a failure or have let yourself or your family down: not at all 7. Trouble concentrating on things, such as reading the newspaper or watching television: not at all 8. Moving or speaking so slowly that other people could have noticed. Or the opposite - being so fidgety or restless that you have been moving around a lot more than usual: not at all 9. Thoughts that you would be better off or of hurting yourself in some way: not at all Total score: 0 Depression Screening Interpretation: Negative Depression Screening Done: Yes 85700 - PHQ-9 Billing: Yes Source: Developed by Drs. Mian Johns, Michelle Baltazar, Owen Castellano and colleagues, with an educational mi from [employer]. Thrive Questionnaire Date Thrive assessed: 12/15/23 I am a: Patient What is your living situation today?: I have a steady place to live Within the past 12 months, did the food you bought not last and you didn't have the money to get more?: Never true Within the past 12 months, did you worry whether your food would run out before you got money to buy more?: Never true Do you have trouble paying for medicines?: No Do you have trouble getting transportation to medical appointments?: No Do you have trouble paying your heating and electricity bill?: No Do you have trouble taking care of your child, family member or friend?: No Do you have trouble with day-to-day activities such as bathing, preparing meals, shopping, managing finances, etc.?: No Are you currently unemployed and looking for a job?: No Are you interested in more education?: No Please select the resources that you would like help with: None Currently or been in a relationship where the following occur: no concerns reported THRIVE Score: 0 AUDIT C Alcohol Use Questionnaire (AUDIT-C) 1. How often do you have a drink containing alcohol?: Monthly or less 2. How many drinks containing alcohol do you have on a typical day when you are drinking?: 1 or 2 3. How often do you have six or more drinks on one occasion?: Never Total Score: 1 Score Reviewed/Action Taken: No GRETEL-7 AMB Questionnaire GRETEL-7 Date GRETEL - 7 assessed: 12/15/23 Feeling nervous, anxious, or on edge: 0 = Not at all Not being able to stop or control worryin = Not at all Worrying too much about different things: 0 = Not at all Trouble relaxin = Not at all Being so restless that it is hard to sit still: 0 = Not at all Becoming easily annoyed or irritable: 0 = Not at all Feeling afraid as if something awful might happen: 0 = Not at all Total GRETEL-7 score (0-4 normal; 5-9 mild; 10-14 moderate; 15-21 severe): 0 Source: Developed by Drs. Mian Johns, Michelle Baltazar, Owen Castellano and colleagues, with an educational mi from [employer]. GRETEL-7 Assessment Billing GRETEL-7 Assessment Tool: GRETEL-7 Assessment 99346 Review of Systems Const Denies headache(s) Eyes Denies loss of vision ENT Denies vertigo, Denies dizziness, Denies headache(s) and Denies sore throat Card Denies chest pain, Denies leg edema and Denies lightheadedness Resp Denies cough, Denies hemoptysis and Denies wheezing GI Denies abdominal pain, Denies melena, Denies constipation, Denies diarrhea and Denies vomiting Denies urinary frequency, Denies dysuria and Denies urinary urgency Musc Denies arthralgias, Denies joint swelling, Denies numbness and Denies tingling Neuro Denies Abnormal speech present, Denies behavioral changes, Denies vertigo, Denies dizziness, Denies headache(s), Denies loss of vision, Denies memory loss, Denies numbness and Denies tingling Psych Denies anxiety, Denies behavioral changes, Denies depression, Denies memory loss and Denies panic attacks Soren/Lymph Denies easy bleeding and Denies easy bruising Aller/Immun Denies wheezing Physical exam (Primary Care) Vital Signs: Last Vital Signs Pulse 66 12/15/23 09:56 Resp 16 12/15/23 09:56 BP 110/58 L 12/15/23 09:56 Pulse Ox 98 12/15/23 09:56 Oxygen Delivery Method Room Air 12/15/23 09:56 BMI result Body Mass Index 26.5 Tobacco/Smoking Status: Tobacco use Status Tobacco use date assessed 12/15/23 12/15/23 10:02 Patient Tobacco Use Status Former Tobacco user 12/15/23 09:55 e-Cigarette/Vaping Use Never Used 12/15/23 09:55 PHQ-9: PHQ-9 Score PHQ-9: Total score 0 12/15/23 10:02 Depression Screening Interpretation: Negative Thrive Assessment: Date of Thrive Assessment Date Thrive assessed 12/15/23 12/15/23 10:02 Currently or been in a relationship where the following occur: no concerns reported Const General: healthy appearing, no acute distress, alert and awake Nutritional Appearance: well nourished Orientation/consciousness: oriented to person, oriented to place and oriented to time HENMT Ears: TM's normal bilaterally General nose exam: Normal nasal mucous membranes and turbinates present Eyes Conjunctivae: conjunctivae normal Sclerae: sclerae normal Pupils: Equal, round and reactive pupils present Neck Neck: Yes no lymphadenopathy and Yes no JVD Thyroid: Thyroid normal Carotids: no bruits Resp Effort & Inspection: normal respiratory effort and not tachypneic Auscultation: no crackles, no rales, no rhonchi and no wheezes Cardio Rate: regular rate Rhythm: regular rhythm Heart sounds: no murmurs and normal S1 and S2 GI Palpation (GI): Soft to palpation, nontender, no hepatomegaly and no splenomegaly Auscultation: normal bowel sounds Skin General skin exam: no rashes or lesions noted and dry skin Neuro General: oriented to person, oriented to place and oriented to time Cranial nerves: Yes Equal, round and reactive pupils present Speech: No Abnormal speech present Gait exam (Neuro): Normal gait present Motor exam (neuro): no tremor noted Extrem Right upper extremity: full ROM Left upper extremity: full ROM Right lower extremity: full ROM; no edema Left lower extremity: full ROM; no edema Psych Mental Status: mental status grossly normal Speech and movement: Normal speech and movement present Affect: normal affect Attitude: cooperative Thought process: Normal thought process present Assessment and Plan Assessment & Plan (1) Renal stones: Code(s): N20.0 - Calculus of kidney Plan: Patient continues to follow Urology. Continues on daily B6 supplementation. Has increased her fluid intake and tried a low oxalate diet though still ends up with kidney stones from time to time. (2) RLS (restless legs syndrome): Code(s): G25.81 - Restless legs syndrome Plan: Continues with the use of Lyrica with good effect. (3) Hypertriglyceridemia: Code(s): E78.1 - Pure hyperglyceridemia Plan: Has a history elevated total cholesterol and triglycerides. Continues to work on low-cholesterol diet. Will continue to follow lipid panel with goal triglycerides if remain below 150. Orders: Orders Lipid Panel Today E78.1 - Pure hyperglyceridemia Comprehensive Independence. Panel Fast Today Z13.1 - Encounter for screening for diabetes mellitus Medications: Discontinued cefdinir Discontinued Reason: Doctor's Order 300 mg PO BID 7 days 14 caps 0RF nystatin swish and spit Discontinued Reason: Doctor's Order 5 mL PO BID 10 days PRN 60 mL 0RF mouth irritation B37.0 - Candidal stomatitis famotidine Discontinued Reason: Doctor's Order 40 mg PO DAILY 30 tabs 5RF sulfamethoxazole-trimethoprim 800-160 mg (Bactrim DS) Discontinued Reason: Doctor's Order 1 tab PO BID 14 days 28 tabs 0RF nitrofurantoin monohyd/m-cryst 100 mg (Macrobid) must administer with a meal/food Discontinued Reason: Doctor's Order 100 mg PO BID 10 days 20 caps 0RF tramadol Discontinued Reason: Doctor's Order 50 mg PO Q8H PRN 15 tabs 0RF pain N43.3 - Hydrocele, unspecified tamsulosin (Flomax) Discontinued Reason: Doctor's Order 0.4 mg PO BEDTIME 30 days 30 caps 0RF Coding Level of Care Code Est Pt Level 4 (29790) Diagnoses Renal stones N20.0 RLS (restless legs syndrome) G25.81 Hypertriglyceridemia E78.1 Additional Codes GRETEL-7 Assessment Billing - GRETEL-7 Assessment Tool: GRETEL-7 Assessment 80503 ([id number])
[2023-12-15 09:56] VITALS: BP 110/58; PULSE 66; RESP 16; O2SAT 98; BMI 26.5
== END 2023-12-15 10:15 | disposition home or self-care (01) ==
PROVIDERS: PCP Physician Assistant; Visit Provider Physician Assistant
DX: N20.0 Calculus of kidney (principal); G25.81 Restless legs syndrome; E78.1 Pure hyperglyceridemia
CPT/HCPCS: 99214

== ENCOUNTER 2024-01-05 09:53 | Outpatient (REF) | payer MEDICARE, BC, OTHER, SELFPAY ==
--- NOTE | ~2024-01-05 | XR_ITS ---
EXAMINATION: XR SHOULDER, LEFT CLINICAL INFORMATION: Pain. COMPARISON: Radiograph left shoulder 04/20/2016. TECHNIQUE: Three views of the left shoulder. FINDINGS: No fracture or subluxation. Mild degenerative posterior arthritis of the acromioclavicular joint. No abnormal soft tissue calcifications. Visualized left-sided ribs and left lung are within normal limits. XR/XR shoulder LT min 2V IMPRESSION: 1. No acute fracture or subluxation. 2. Mild degenerative osteoarthritis of the acromioclavicular joint.
== END 2024-01-05 09:54 | disposition home or self-care (01) ==
LOC: HO.HOSX 09:53
PROVIDERS: Visit Provider Orthopaedic Surgery
DX: M25.512 Pain in left shoulder (principal)
CPT/HCPCS: 20610; 73030; 99212; J0665; J1100

== ENCOUNTER 2024-01-05 10:40 | Outpatient (AMB) | payer MEDICARE, BC, OTHER, SELFPAY ==
--- NOTE | 2024-01-05 10:44 | MHC.OFFVIS ---
Intake Vital Signs 01/05/24 10:49 Height 5 ft 3 in Weight 149 lb BMI 26.4 Intake Visit Reasons: new prob- Left shoulder pain Allergies No Known Allergies [No Known Allergies*] Allergy (Verified 12/15/23 10:00) HPI new prob- Left shoulder pain HPI Details Elvira is a 68 year old right hand dominant female who presents today for a new problem visit with complaints of left shoulder pain. Patient reports that she has had pain since about Nov, she was anil plane and got a caryy on from an overhead compartment when she felt pain in the shoulder. She has had pain in the shoulder worse when putting on pants in the morning. denies numbness and tingling. She takes tylenol and advil for her pain which does not help. She utilizes heat and ice application, the heat helps more. [facility] Medical History Cough COVID-19 Preop exam for internal medicine Allergic rhinitis Hypertriglyceridemia History of ARDS Osteoarthritis of right patellofemoral joint Restless leg syndrome Retained ureteral stent History of kidney stones Renal stones Iliotibial band syndrome, right leg Surgical History History of esophagogastroduodenoscopy (EGD) Hx of left breast biopsy Hx of colonoscopy Hx of lithotripsy History of cholecystectomy Family History Father No problems noted. Mother No problems noted. Social History Housing: House Alcohol intake: current Patient Tobacco Use Status: Former Tobacco user Years Smoked: quit 1999 e-Cigarette/Vaping Use: Never Used service: No Current occupational status: retired Cognitive needs: No Hearing needs: No Vision needs: No Physical Exam Vital Signs: BMI result Body Mass Index 26.4 Extrem Other: + H/N Neg EC 40/90/130 Results Reviewed Results Reviewed: I personally reviewed relevant radiographs. 1. No acute fracture or subluxation. 2. Mild degenerative osteoarthritis of the acromioclavicular joint. Assessment & Plan Assessment & Plan (1) Left shoulder pain: Code(s): M25.512 - Pain in left shoulder Plan: Left shoulder pain after injury. Exam unimpressive. Injected left shoulder. If not improved will consider PT. Orders: Orders XR shoulder LT min 2V 01/05/24 M25.519 - Pain in unspecified shoulder Coding Level of Care Code Est Pt Level 3 (00004) Diagnoses Left shoulder pain M25.512
[2024-01-05 10:49] VITALS: BMI 26.4
== END 2024-01-05 11:28 | disposition home or self-care (01) ==
PROVIDERS: PCP Physician Assistant; Visit Provider Orthopaedic Surgery
DX: M25.512 Pain in left shoulder (principal)
CPT/HCPCS: 20610; 99213

== ENCOUNTER 2024-01-13 09:19 | Outpatient (REF) | payer MEDICARE, BC, OTHER, SELFPAY ==
--- NOTE | ~2024-01-13 | US_ITS ---
EXAMINATION: US RETROPERITONEAL LIMITED (RENAL ONLY) CLINICAL INFORMATION: Calculus of kidney. COMPARISON: Renal ultrasound 10/30/2023 and 07/14/2023. X-ray KUB 10/30/2023 and 12/11/2022. CT abdomen and pelvis 10/25/2019. TECHNIQUE: Real-time imaging of the kidneys. FINDINGS: RIGHT KIDNEY: 9.9 x 4.0 x 4.9 cm (SAG x AP x TRV). The kidney is normal in size, contour, and echogenicity. Renal cortical thickness is normal. No calculi or focal parenchymal lesions. No hydronephrosis. LEFT KIDNEY: 8.9 x 4.2 x 4.0 cm (SAG x AP x TRV). The kidney is normal in size and echogenicity. Again noted lobulated contour. Renal cortical thickness is normal. No hydronephrosis. There is a 0.2 cm nonobstructive calculus in the lower pole. There is an additional subcentimeter hyperechoic focus, with similar echogenicity compared to the other calculus/calcium, projecting over the mid pole with no associated twinkle artifact that could represent an additional stone or vascular calcification. US/US renal BI IMPRESSION: 1. Nonobstructive 0.2 cm calculus in the lower pole of the left kidney. Additional subcentimeter hyperechoic focus in the mid pole of the left kidney could represent an additional stone or vascular calcification. 2. No hydronephrosis.
== END 2024-01-13 09:20 | disposition home or self-care (01) ==
LOC: HO.US 09:19
PROVIDERS: PCP Physician Assistant; Visit Provider Urology
DX: N20.0 Calculus of kidney (principal)
CPT/HCPCS: 76775

== ENCOUNTER 2024-01-27 11:31 | Outpatient (AMB) | payer MEDICARE, BC, OTHER, SELFPAY ==
--- NOTE | 2024-01-27 11:34 | A.OFFVIS_ITS ---
Intake Intake Visit Reasons: 6m/US(set)Confirmed Intake Note: Patient is Present for Telephone Follow Up For Urology Med:Vitamin B6 Antibiotic Allergy: None Blood Thinner:None Allergies No Known Allergies [No Known Allergies*] Allergy (Verified 12/15/23 10:00) HPI HPI Comments History of Present Illness Details Elvira is a pleasant female. She is a patient of Dr. Mcdonough. She is seen for the following urologic conditions - nephrolithiasis Telemedicine Evaluation 15 min Consultation [employer] Video Discussed imaging At this point continue to follow in 6 months If stable can move out to 1 year Nephrolithiasis Interventions - spring 2019 left ureteroscopy with stent - 01/31 left ESWL - 01/02 Left ESWL Imaging - 07/02 ultrasound small left renal stone - 12/31 ultrasound 6 mm left renal stone - 08/03 renal ultrasound left cortical thinning, 2 x 6 mm stones - 11/04 KUB faint 5 mm left - 01/02 renal ultrasound bilateral small cysts no stones - 11/04 renal ultrasound and KUB with faint 4 mm left - 02/02 renal US 2mm left Therapeutic plan - increase fluid intake, lemon water, vitamin B6, oxalate avoidance PFSH Medical History Cough COVID-19 Preop exam for internal medicine Allergic rhinitis Hypertriglyceridemia History of ARDS Osteoarthritis of right patellofemoral joint Restless leg syndrome Retained ureteral stent History of kidney stones Renal stones Iliotibial band syndrome, right leg Surgical History History of esophagogastroduodenoscopy (EGD) Hx of left breast biopsy Hx of colonoscopy Hx of lithotripsy History of cholecystectomy Family History Father No problems noted. Mother No problems noted. Social History Housing: House Alcohol intake: current Patient Tobacco Use Status: Former Tobacco user Years Smoked: quit 1999 e-Cigarette/Vaping Use: Never Used service: No Current occupational status: retired Cognitive needs: No Hearing needs: No Vision needs: No Review of Systems Const All systems reviewed & are unremarkable except as noted in HPI and below Reports no additional complaints Resp Reports no additional complaints GI Reports no additional complaints Reports as per HPI Musc Reports no additional complaints Physical Exam Telemedicine evaluation Appropriate responses Regular breathing rate and rhythm HEENT Head: Yes normal to inspection Ears: hearing grossly normal bilaterally Eyes General: appearance normal, both eyes and all related structures Neck Neck: Yes normal visual inspection Chest Chest palpation & inspection: normal inspection of the chest Resp Effort & Inspection: normal respiratory effort and able to speak in complete sentences Assessment & Plan Assessment & Plan (1) Renal stones: Code(s): N20.0 - Calculus of kidney Plan Six-month follow-up renal ultrasound Orders: Orders US renal BI 6 Months N20.0 - Calculus of kidney Medications: Changed From pyridoxine (vitamin B6) 100 mg PO DAILY 90 days 90 tabs 2RF N20.0 - Calculus of kidney To pyridoxine (vitamin B6) 50 mg PO DAILY 90 days 90 tabs 3RF N20.0 - Calculus of kidney Patient Instructions: Imaging studies, laboratory and physical exam results were discussed and revi ewed in detail. No major barriers to patient understanding were identified. An opportunity to ask questions regarding the treatment plan was provided. All questions were answered. The patient expressed understanding and agreement with the above treatment plan. The patient is aware they should contact our office by phone for worsening of their current condition or the appearance of new urologic symptoms. Compliance is encouraged with any medications and followup testing that is ordered. It is a privilege to participate in the urologic care of your patient. If you have any questions or concerns regarding treatment for the above conditions, or other urologic issues, please do not hesitate to contact me. The office telephone contact is [phone]. This note is constructed using voice recognition software. While every effort has been made to ensure accuracy halfway house counselor errors may have been included. Yours sincerely, Dr Gilles Banks MD, PAKO [facility] - Urology Providers of Expert, Compassionate Care for the Genitourinary System Telehealth Telehealth Location of provider rendering services: practice address Location of patient: address on file Patient Identification confirmed using: Name, : Yes Telehealth method: video Patient verbally consented to treatment: Yes Patient verbally consented to billing insurance company: Yes Patient informed of any privacy concerns related to visit: Yes Minutes spent on Phone/Video with Pt.: 15 Coding Level of Care Code Tele Est Pt Level 3 (36695) Diagnoses Renal stones N20.0
== END 2024-01-27 12:02 | disposition home or self-care (01) ==
LOC: HO.HUSH 11:32
PROVIDERS: PCP Physician Assistant; Visit Provider Urology
DX: N20.0 Calculus of kidney (principal)
CPT/HCPCS: 99213

== ENCOUNTER → 2024-01-27 11:31 | Outpatient (BNVA) | payer MEDICARE, BC, OTHER, SELFPAY | PROVIDERS: PCP Physician Assistant; Visit Provider Urology ==

== ENCOUNTER 2024-02-26 15:45 | Outpatient (REF) | payer MEDICARE, BC, OTHER, SELFPAY ==
[2024-02-26 17:10] LABS: Appearance Urine Clear; Color Urine Yellow; Glucose Urine UA Negative (Negative); Leukocyte Esterase Urine Negative (Negative); Nitrite Urine Negative (Negative); Specific Gravity - Urine 1.025 (1.005-1.025); Urine Blood Negative (Negative); Urine Ketones Negative (Negative); Urine Protein Negative (Neg-Trace)
[2024-02-26 17:13] LABS: Bacteria Urine None Seen (None Seen); Hyaline Casts Urine 0-2 /LPF (0-2); RBC Urine 0-2 /HPF (0-2); Squamous Epithelial Cell Urine 0-2 /HPF (0-2); WBC Urine 0-5 /HPF (0-5)
== END 2024-02-26 15:46 | disposition home or self-care (01) ==
LOC: HO.LAB 15:45
PROVIDERS: Visit Provider Urology
DX: N20.0 Calculus of kidney (principal); R39.9 Unspecified symptoms and signs involving the genitourinary system
CPT/HCPCS: 81001; 87086

== ENCOUNTER 2024-06-08 08:57 | Outpatient (REF) | payer MEDICARE, BC, OTHER, SELFPAY ==
--- NOTE | ~2024-06-08 | MM_ITS ---
EXAMINATION: MM SCREENING DIGITAL BREAST TOMOSYNTHESIS, BILATERAL CLINICAL INFORMATION: Screening. Asymptomatic. COMPARISON: Mammography: Comparison is made with available priors TECHNIQUE: Digital breast tomosynthesis is performed in both the craniocaudal and mediolateral oblique views along with computer-aided detection (CAD). Synthesized 2D images are generated from the tomosynthesis. FINDINGS: There are scattered areas of fibroglandular density (ACR BI-RADS breast composition Category b). Postsurgical changes to the left breast are stable. There are no significant masses, abnormal calcifications, or other abnormalities. MM/MM tomosynthesis screening BI IMPRESSION: No mammographic evidence of malignancy. ASSESSMENT: BI-RADS BI-RADS 1 - Negative RECOMMENDATION: Routine annual mammography screening. 1 year F/U This examination should not preclude the clinical evaluation of a suspicious palpable abnormality. This patient's information was entered into a reminder system with a target due date for their next mammogram. Electronically signed by: Josephine Ledesma DO 07/02/2024 01:02 PM EDT
== END 2024-06-08 08:58 | disposition home or self-care (01) ==
LOC: HO.MAMMO 08:57
PROVIDERS: PCP Physician Assistant; Visit Provider Physician Assistant
DX: Z12.31 Encounter for screening mammogram for malignant neoplasm of breast (principal)
CPT/HCPCS: 77063; 77067

== ENCOUNTER → 2024-06-08 09:00 | Outpatient (BNV) | payer MEDICARE, BC, OTHER, SELFPAY | PROVIDERS: PCP Physician Assistant; Visit Provider Internal Medicine | DX: Z12.31 Encounter for screening mammogram for malignant neoplasm of breast (principal) | CPT/HCPCS: 77063; 77067 ==

== ENCOUNTER 2024-07-22 09:58 | Outpatient (REF) | payer MEDICARE, BC, OTHER, SELFPAY ==
--- NOTE | ~2024-07-22 | US_ITS ---
EXAMINATION: US RETROPERITONEAL LIMITED (RENAL ONLY) CLINICAL INFORMATION: Calculus of kidney. COMPARISON: Renal ultrasound 01/13/2024 and 10/30/2023. X-ray abdomen 10/30/2023 and 12/11/2022. CT abdomen and pelvis 10/25/2019. TECHNIQUE: Real-time imaging of the kidneys. FINDINGS: RIGHT KIDNEY: 10.5 x 5.6 x 5.3 cm (SAG x AP x TRV). The kidney is normal in size, contour, and echogenicity. Renal cortical thickness is normal. No calculi or focal parenchymal lesions. No hydronephrosis. LEFT KIDNEY: 9.7 x 4.7 x 3.1 cm (SAG x AP x TRV). The kidney is normal in size, contour, and echogenicity. Renal cortical thickness is normal. No focal parenchymal lesions or hydronephrosis. Echogenic focus in the middle pole probably nonobstructing stone 4 mm. US/US renal BI IMPRESSION: 1. Echogenic focus in the middle pole left kidney probably nonobstructing stone 4 mm. 2. No ultrasound evidence of renal obstruction or hydronephrosis. Electronically signed by: Paul Lazaro MD 08/29/2024 07:49 PM EST
== END 2024-07-22 09:59 | disposition home or self-care (01) ==
LOC: HO.US 09:58
PROVIDERS: PCP Physician Assistant; Visit Provider Urology
DX: N20.0 Calculus of kidney (principal)
CPT/HCPCS: 76775

== ENCOUNTER 2024-08-07 07:36 | Outpatient (REF) | payer MEDICARE, BC, OTHER, SELFPAY ==
[2024-08-07 08:51] LABS: Alanine Aminotransferase 22 U/L (0-31); Albumin Level 4.3 g/dL (3.5-5.0); Alkaline Phosphatase 93 U/L (39-117); Anion Gap 13 (12-20); Aspartate Amino Transferase 35 U/L (5-31); Bilirubin Total 0.4 mg/dL (0.0-1.0); Blood Urea Nitrogen 20 mg/dL (9-16); Calcium 9.7 mg/dL (8.4-10.2); Carbon Dioxide 26 mmol/L (22-29); Chloride 106 mmol/L (96-108); Cholesterol 211 mg/dL (<200); Estimated Glomerular Filt Rate 60; Glucose Fasting 100 mg/dL (60-99); HDL Cholesterol 72 mg/dL (>40); LDL Cholesterol Calculated 120 mg/dL (<100); Potassium 4.7 mmol/L (3.3-5.1); Sodium 140 mmol/L (135-145); Total Protein 7.3 g/dL (6.5-8.0); Triglycerides 95 mg/dL (<150)
== END 2024-08-07 07:37 | disposition home or self-care (01) ==
LOC: HO.LAB 07:36
PROVIDERS: PCP Physician Assistant; Visit Provider Physician Assistant
DX: E78.1 Pure hyperglyceridemia (principal); Z13.1 Encounter for screening for diabetes mellitus
CPT/HCPCS: 36415; 80053; 80061

== ENCOUNTER 2024-08-17 09:41 | Outpatient (AMB) | payer MEDICARE, BC, OTHER, SELFPAY ==
--- NOTE | 2024-08-17 09:48 | AM.OFFVISMDC ---
Intake Vital Signs 08/17/24 09:54 Height 5 ft 3 in Weight 152 lb 6 oz BMI 27.0 BP 120/74 Blood Pressure Location Lt brachial Position Sitting Pulse 70 Pulse Source Pulse Oximeter Pulse Oximetry (%) 96 Oxygen Delivery Method Room Air Intake Visit Reasons: SWV [id number] Allergies No Known Allergies [No Known Allergies*] Allergy (Verified 08/17/24 10:21) Medication List - Last Reconciled 08/17/24 by Francesco Mcdonough PA-C acetaminophen (Tylenol) 325 mg PO QID PRN prednisone 10 mg PO DIRECTED 9 days pregabalin 75 mg PO DAILY 90 days pyridoxine (vitamin B6) 50 mg PO DAILY 90 days tizanidine 2 mg PO BID 20 days tramadol 50 mg PO BEDTIME 7 days HPI SWV [id number] HPI Details Patient is a 68-year-old female here today for an annual wellness visit.? Patient has a past medical history significant for nephrolithiasis, restless legs syndrome. Today we discussed patient's end of life planning--> filled out MOLST form today in office Also we discuss patient's comprehensive care plan which was scanned and patient's documents Patient also reports continuing to worsening neck pain worse at night when lying down. She saw [facility] in the past though was not able to schedule appointment. She would like to see pain management for possible pain reduction modality Mammogram: Done in 06/01/2024 Vaccines: Up-to-date with COVID vaccine, flu vaccine, pneumonia, tetanus and shingles vaccines Colorectal cancer screening: Colonoscopy done in 2022, repeat years HPI Comments History of Present Illness Details reviewed past medical history- yes reviewed surgical / hospitalization history- yes reviewed current medications- yes reviewed family history- yes home safety throw rugs? grab bars? raised toilet seat? working smoke detectors? activities of daily living difficulty bathing or showering? difficulty dressing? difficulty using the toilet? difficulty getting in and out of bed? difficulty walking? receives help from other person's with any of the above tasks? instrumental activities of daily living uses telephone - gets to place out of walking distance- go shopping for groceries- repairs own meals- does own minor home maintenance- does own laundry- does own housework- manages own money- currently takes medication- end of life planning discussed advanced directives- yes advanced directives on file? discussed wishes expressed in advanced directives. fall risk have you had any falls with injuries in the past year? have you had 2 or more falls in the past year? fall risk assessment: [facility] Medical History Cough COVID-19 Preop exam for internal medicine Allergic rhinitis Hypertriglyceridemia History of ARDS Osteoarthritis of right patellofemoral joint Restless leg syndrome Retained ureteral stent History of kidney stones Renal stones Iliotibial band syndrome, right leg Surgical History History of esophagogastroduodenoscopy (EGD) Hx of left breast biopsy Hx of colonoscopy Hx of lithotripsy History of cholecystectomy Family History Father No problems noted. Mother No problems noted. Social History Housing: House Alcohol intake: current Patient Tobacco Use Status: Former Tobacco user Years Smoked: quit 1999 e-Cigarette/Vaping Use: Never Used service: No Current occupational status: retired Cognitive needs: No Hearing needs: No Vision needs: No Questionnaire Medicare Wellness Checkup [age] What gender do you identify with?: female During the past 4 weeks, how much have you been bothered by emotional problems such as feeling anxious, depressed, irritable, sad or downhearted, and blue?: slightly During the past 4 weeks, has your physical & emotional health limited your social activities with family, friends, neighbors, or groups?: not at all During the past 4 weeks, how much bodily pain have you generally had?: moderate pain During the past 4 weeks, was someone available to help you if you needed & wanted help?: yes, as much as I wanted During the past 4 weeks, what was the hardest physical activity you could do for at least 2 minutes?: moderate Can you get to places out of walking distance without help? (For eg., can you travel alone on buses, taxis or drive your car?): Yes Can you go shopping for groceries or clothes without someone's help?: Yes Can you prepare your own meals?: Yes Can you do your housework without help?: Yes Because of any health problems, do you need the help of another person with your personal care needs such as eating, bathing, dressing or getting around the house?: No Can you handle your own money without help?: Yes During the past 4 weeks, how would you rate your health in general?: good During the past 4 weeks how have things been going for you?: pretty well Are you having difficulties driving your car?: no Do you always fasten your seat belt when you are in a car?: yes, usually During past 4 weeks, have you been bothered by the following: never: Falling or dizzy when standing up, Sexual problems?, Trouble eating well?, Teeth or denture problems? and Problems using the telephone? and sometimes: Tiredness or fatigue? Have you fallen 2 or more times in the past year?: No Are you afraid of falling?: No Are you a smoker?: no During the past 4 weeks, how many drinks of wine, beer, or other alcoholic beverages did you have?: 1 drink or less per week Do you exercise for about 20 minutes 3 or more times a week?: yes, most of the time Have you been given information to help with the following?: no: Hazards in your house that might hurt you? and no: Keeping track of your medications? How often do you have trouble taking medicines the way you have been told to take them?: I always take medicine as prescribed How confident are you that you can control & manage most of your health problems?: somewhat confident What is your race?: White Mini Mental State Exam (MMSE) Orientation What is the (year) (season) (date) (day) (month)?: year Where are we (state) (county) (town or city) (hospital) (floor)?: town or city Attention & Calculation (CHOOSE ONE) Spell WORLD backwards (DLROW): 5 letters Score Score: 7 Activity of Daily Living Bathing - sponge bath, tub bath or shower: receives no assistance (gets in/out by self, if usual bathing means Dressing - getting clothes from closets & drawers, including inner/outer garments & fasteners.: gets clothes & gets completely dressed without help Toileting - going to the 'toilet room' for urine/bowel elimination & cleaning self/arranging clothes: goes to toilet room, cleans self, arranges clothes without help Transfer: moves in & out of bed and chair without help (may use support object) Continence: controls urination/bowel movements completely by self Feeding: feeds self without help Total Score: 0 Information obtained from: patient Using telephone: independent Traveling: independent Shopping: independent Preparing meals: independent Housework: independent Taking medicine: independent Managing money: independent PHQ-9 Over the last 2 weeks, how often have you been bothered by any of the following problems? 1. Little interest or pleasure in doing things: not at all 2. Feeling down, depressed, or hopeless: not at all 3. Trouble falling or staying asleep, or sleeping too much: nearly every day 4. Feeling tired or having little energy: more than half the days 5. Poor appetite or overeating: not at all 6. Feeling bad about yourself - or that you are a failure or have let yourself or your family down: not at all 7. Trouble concentrating on things, such as reading the newspaper or watching television: not at all 8. Moving or speaking so slowly that other people could have noticed. Or the opposite - being so fidgety or restless that you have been moving around a lot more than usual: not at all 9. Thoughts that you would be better off or of hurting yourself in some way: not at all Total score: 5 Depression Screening Interpretation: Positive Depression Screening Follow-up: Existing condition Depression Screening Done: Yes 51041 - PHQ-9 Billing: Yes Source: Developed by Drs. Mian Johns, Michelle Baltazar, Owen Castellano and colleagues, with an educational mi from [employer]. Physical Exam Vital Signs: Last Vital Signs Pulse 70 08/17/24 09:54 BP 120/74 08/17/24 09:54 Pulse Ox 96 08/17/24 09:54 Oxygen Delivery Method Room Air 08/17/24 09:54 BMI result Body Mass Index 27.0 HEENT Other: hearing screening whisper test- pass Eyes Other: vision screening-20 20 0s od ou Other: urinary incontinence? no Neuro Other: balance Romberg- normal tandem walk test- able walk-in turned test- able rise from sit to stand- within 2 seconds Office Procedures Flu Questionnaire Does the patient have a severe egg allergy?: No Does the patient have severe life threatening allergies?: No Does the patient have a fever or illness today?: No Has the patient ever had Guillain-Gilliam Syndrome?: No Has the patient ever had any past reaction to a flu shot?: No Immunizations Fluarix Triv [id number] (PF) 45 mcg (15 mcg x 3)/0.5 mL IM syringe Performing Provider: Francesco Mcdonough PA-C [facility] Administered by: BASILIA Joseph on 08/17/24 10:08 Dose Route Admin Location Dispensed Lot Number Expiration Date [facility] Marketing Communications Leader 0.5 mL IM Left Deltoid 0.5 mL [id number] 04/11/25 [id number] [employer] VIS Given Date VIS Provided VIS Publication Date 08/17/24 Single Vaccine 21 Eligibility Eligibility Date Funding Source Not [facility] Eligible 08/17/24 Private Assessment & Plan Assessment & Plan (1) Encounter for annual wellness visit (AWV) in Medicare patient: Code(s): Z00.00 - Encounter for general adult medical examination without abnormal findings Plan: As per HPI (2) Cervical myofascial strain: Code(s): S16.1XXA - Strain of muscle, fascia and tendon at neck level, initial encounter Qualifiers: Encounter type: subsequent encounter Qualified Code(s): S16.1XXD - Strain of muscle, fascia and tendon at neck level, subsequent encounter Plan: Patient continues to have neck pain has been causing her migraines. Was seen [facility] though has lost follow-up. She would like to speak with pain management here in [place] for pain reduction modality. Orders: Orders Complete Blood Count no Diff 11 Months E78.1 - Pure hyperglyceridemia Influenza [id number] Immunization Today Z23 - Encounter for immunization Lipid Panel 11 Months E78.1 - Pure hyperglyceridemia Comprehensive [place]. Panel Fast 11 Months E78.1 - Pure hyperglyceridemia Referrals Pain Management Referral S16.1XXD - Strain of muscle, fascia and tendon at neck level, subsequent encounter Quality Reporting (2019) Depression/Bipolar (159/160/161/177) PHQ-9: Total score: 5 Coding Level of Care Code Medicare Subsequent (G0439) Est Pt Level 3 (82819) Diagnoses Encounter for annual wellness visit (AWV) in Medicare patient Z00.00 Cervical myofascial strain, subsequent encounter S16.1XXD Encounter type: subsequent encounter CPT Codes Advance Care Planning - Time spent: 1-15 minutes, on File ([id number]) Advance Care Planning Advance Care Planning discussion: Completed/Scanned Date of discussion: 08/17/24 Forms completed: [facility] Time spent: 1-15 minutes, on File Actual minutes spent: 5
[2024-08-17 09:54] VITALS: BP 120/74; PULSE 70; O2SAT 96; BMI 27.0
== END 2024-08-17 10:53 | disposition home or self-care (01) ==
LOC: HO.HMCH 09:42
PROVIDERS: PCP Physician Assistant; Visit Provider Physician Assistant
DX: Z00.00 Encounter for general adult medical examination without abnormal findings (principal); S16.1XXD Strain of muscle, fascia and tendon at neck level, subsequent encounter

== ENCOUNTER → 2024-08-17 09:41 | Outpatient (BNVA) | payer MEDICARE, BC, OTHER, SELFPAY | PROVIDERS: PCP Physician Assistant; Visit Provider Physician Assistant | DX: Z00.00 Encounter for general adult medical examination without abnormal findings (principal); Z23 Encounter for immunization; S16.1XXD Strain of muscle, fascia and tendon at neck level, subsequent encounter | CPT/HCPCS: 90471; 90656; 99212 ==

== ENCOUNTER 2024-08-23 09:48 | Outpatient (AMB) | payer MEDICARE, BC, OTHER, SELFPAY ==
--- NOTE | 2024-08-23 09:49 | MHC.OFFVIS ---
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 She reported that her pain started 2 years ago. She thinks that the cause of the problem is arthritis in the neck. She reports the level of the pain today 5 to 8/10. She also reports that headache is severe could be 9 to 10/10. She is unable to sleep normally because of her pain. She can do activities of daily living, she can take care of herself, she can function normally. 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 In terms of tissue damage he describes her pain as pulsing, throbbing, pounding, dull, sore, hurting, aching, heavy sensation. She had x-ray of the cervical spine performed on [facility]. She also had physical therapy at [facility] she reported temporary relief of her pain. She also had massage therapy and it did not help her pain. She was taking Advil 2 tablets twice a day and that was temporarily helpful for her pain but to 3 hours after the pain come back with the same strength. She also taking Lyrica 75 mg for restless leg syndrome Her past medical history is significant for kidney stones history of gallstones and arthritis. Past surgical history is significant for gallbladder surgery in 2013 and multiple procedures for kidney stone removals. 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 [facility] Medical History Cough COVID-19 Preop exam for internal medicine Allergic rhinitis Hypertriglyceridemia History of ARDS Osteoarthritis of right patellofemoral joint Restless leg syndrome Retained ureteral stent History of kidney stones Renal stones Iliotibial band syndrome, right leg Surgical History History of esophagogastroduodenoscopy (EGD) Hx of left breast biopsy Hx of colonoscopy Hx of lithotripsy History of cholecystectomy Family History Father No problems noted. Mother No problems noted. Social History Housing: House Alcohol intake: current Patient Tobacco Use Status: Former Tobacco user Years Smoked: quit 1999 e-Cigarette/Vaping Use: Never Used service: No Current occupational status: retired Cognitive needs: No Hearing needs: No Vision needs: No Review of Systems Const Reports no additional complaints Eyes Reports no additional complaints ENT Reports Normal hearing present Card Reports no additional complaints Resp Reports no additional complaints GI Reports no additional complaints Reports as per HPI Musc Reports as per HPI Neuro Reports no additional complaints, Reports Normal hearing present, Denies Abnormal speech present, Denies confusion and Denies Sensory deficit (Neuro) Psych Denies confusion Physical Exam Vital Signs: Last Vital Signs Pulse 56 08/23/24 09:54 BP 146/77 H 08/23/24 09:54 Pulse Ox 98 08/23/24 09:54 Oxygen Delivery Method Room Air 08/23/24 09:54 BMI result Body Mass Index 27.3 Const General: cooperative, healthy appearing, comfortable, no acute distress and well developed; No confusion Nutritional Appearance: average body habitus and well nourished Orientation/consciousness: patient oriented x3 and No confusion Limitations: no limitations Eyes General: appearance normal, both eyes and all related structures Pupils: Equal, round and reactive pupils present EOM: EOMs intact bilaterally Neck Other: Flexing head forward and flexing had backwards aggravates pain. Spurling maneuver does not cause pain radiation to the bilateral arms. Lhermitte test is negative for pain radiating down the spine. Tenderness on palpation in paraspinal spinal region of the cervical spine. She denies weakness and numbness of bilateral upper or lower extremities. She denies pelvic organ dysfunction. Neck: Yes full ROM Chest Chest palpation & inspection: normal inspection of the chest Resp Effort & Inspection: normal respiratory effort, able to speak in complete sentences, normal respiratory pattern, no audible wheezes and no cough Cardio Jugular venous distension: no JVD GI Inspection: Yes normal to inspection Neuro General: patient oriented x3, gait normal and No confusion Cranial nerves: Yes CN's II-XII intact bilaterally, Yes Equal, round and reactive pupils present, Yes Normal hearing present and Yes Ability to bilaterally elevate shoulders present Speech: No Abnormal speech present Gait exam (Neuro): Normal gait present Motor exam (neuro): 5/5 motor strength present throughout Sensory Exam: No Sensory deficit (Neuro) Extrem General: No pedal edema Psych Speech and movement: Normal speech and movement present Affect: normal affect Attitude: cooperative Thought process: Normal thought process present Thought content: Normal thought content present Insight: Good insight present (Psych) Judgement: Good judgement present (Psych) Assessment & Plan Assessment & Plan (1) Spondylosis without myelopathy or radiculopathy, cervical region: Code(s): M47.812 - Spondylosis without myelopathy or radiculopathy, cervical region Category: Medical (2) Chronic pain syndrome: Code(s): G89.4 - Chronic pain syndrome Category: Medical Plan I will schedule this patient for diagnostic evaluation C2-C3 C4 medial branch block bilateral. This will be diagnostic injection to find out whether or not the headache of this patient is related to the arthropathy of the upper cervical spine. She will sign medical information release note and we will obtain x-ray she received at [facility]. We need only report. Sprint PNS will be discussed if C2-C3 C4 medial branch block diagnostic will demonstrate good results. Coding Level of Care Code New Pt Level 3 (43989) Diagnoses Spondylosis without myelopathy or radiculopathy, cervical region M47.812 Chronic pain syndrome G89.4
[2024-08-23 09:54] VITALS: BP 146/77; PULSE 56; O2SAT 98; BMI 27.3
== END 2024-08-23 10:17 | disposition home or self-care (01) ==
PROVIDERS: PCP Physician Assistant; Visit Provider Anesthesiology
DX: M47.812 Spondylosis without myelopathy or radiculopathy, cervical region (principal); G89.4 Chronic pain syndrome
CPT/HCPCS: 99203

== ENCOUNTER → 2024-08-23 09:48 | Outpatient (BNVA) | payer MEDICARE, BC, OTHER, SELFPAY | PROVIDERS: PCP Physician Assistant; Visit Provider Anesthesiology | DX: M47.812 Spondylosis without myelopathy or radiculopathy, cervical region (principal); G89.4 Chronic pain syndrome | CPT/HCPCS: 99202 ==

== ENCOUNTER 2024-08-31 10:13 | Outpatient (AMB) | payer MEDICARE, BC, OTHER, SELFPAY ==
--- NOTE | 2024-08-31 10:14 | MHC.OFFVIS ---
Intake Visit Reasons: 6m/US(SET) Intake Note: Patient is present for Ultrasound follow up Urology Med: Vitamin B6 Antibiotic Allergy: None Blood Thinner: None Renal Ultrasound: 07/22/2024 Patient states that she has MILD discomfort no major pain Does feel that stones are moving around. 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 She is a patient of Dr. Mcdonough. She is seen for the following urologic conditions - nephrolithiasis Telemedicine Evaluation 15 min Consultation Adore Me Ngozi Video Discussed imaging Move to 1 year Nephrolithiasis Interventions - spring 2019 left ureteroscopy with stent - 01/31 left ESWL - 01/02 Left ESWL Imaging - 07/02 ultrasound small left renal stone - 12/31 ultrasound 6 mm left renal stone - 08/03 renal ultrasound left cortical thinning, 2 x 6 mm stones - 11/04 KUB faint 5 mm left - 01/02 renal ultrasound bilateral small cysts no stones - 11/04 renal ultrasound and KUB with faint 4 mm left - 02/02 renal US 2mm left - 08/05 renal 4mm Therapeutic plan - increase fluid intake, lemon water, vitamin B6, oxalate avoidance PFSH Medical History Cough COVID-19 Preop exam for internal medicine Allergic rhinitis Hypertriglyceridemia History of ARDS Osteoarthritis of right patellofemoral joint Restless leg syndrome Retained ureteral stent History of kidney stones Renal stones Iliotibial band syndrome, right leg Surgical History History of esophagogastroduodenoscopy (EGD) Hx of left breast biopsy Hx of colonoscopy Hx of lithotripsy History of cholecystectomy Family History Father No problems noted. Mother No problems noted. Social History Housing: House Alcohol intake: current Patient Tobacco Use Status: Former Tobacco user Years Smoked: quit 1999 e-Cigarette/Vaping Use: Never Used service: No Current occupational status: retired Cognitive needs: No Hearing needs: No Vision needs: No Review of Systems Const All systems reviewed & are unremarkable except as noted in HPI and below Reports no additional complaints Resp Reports no additional complaints GI Reports no additional complaints Reports as per HPI Musc Reports no additional complaints Physical Exam Telemedicine evaluation Appropriate responses Regular breathing rate and rhythm HEENT Head: Yes normal to inspection Ears: hearing grossly normal bilaterally Eyes General: appearance normal, both eyes and all related structures Neck Neck: Yes normal visual inspection Chest Chest palpation & inspection: normal inspection of the chest Resp Effort & Inspection: normal respiratory effort and able to speak in complete sentences Telehealth Telehealth Telehealth Platform: Adore Me Location of provider rendering services: practice address Location of patient: address on file Patient Identification confirmed using: Name, : Yes Telehealth method: video Patient verbally consented to treatment: Yes Patient verbally consented to billing insurance company: Yes Patient informed of any privacy concerns related to visit: Yes Minutes spent on Phone/Video with Pt.: 15 Assessment & Plan Assessment & Plan (1) Kidney stone on left side: Code(s): N20.0 - Calculus of kidney Category: Medical Plan One year follow-up renal ultrasound Orders: Orders US renal BI 1 Year N20.0 - Calculus of kidney Patient Instructions: Imaging studies, laboratory and physical exam results were discussed and reviewed in detail. No major barriers to patient understanding were identified. An opportunity to ask questions regarding the treatment plan was provided. All questions were answered. The patient expressed understanding and agreement with the above treatment plan. The patient is aware they should contact our office by phone for worsening of their current condition or the appearance of new urologic symptoms. Compliance is encouraged with any medications and followup testing that is ordered. It is a privilege to participate in the urologic care of your patient. If you have any questions or concerns regarding treatment for the above conditions, or other urologic issues, please do not hesitate to contact me. The office telephone contact is [phone]. This note is constructed using voice recognition software. While every effort has been made to ensure accuracy multimedia engineer errors may have been included. Yours sincerely, Dr Gilles Banks MD, [facility] - Urology Providers of Expert, Compassionate Care for the Genitourinary System Coding Level of Care Code Tele Est Pt Level 3 (36608) Diagnoses Kidney stone on left side N20.0
== END 2024-08-31 11:01 | disposition home or self-care (01) ==
LOC: HO.HUSH 10:13
PROVIDERS: PCP Physician Assistant; Visit Provider Urology
DX: N20.0 Calculus of kidney (principal)
CPT/HCPCS: 99213

== ENCOUNTER 2024-09-15 11:17 | Outpatient (REF) | payer MEDICARE, BC, OTHER, SELFPAY ==
[2024-09-15 12:40] LABS: Appearance Urine Clear; Color Urine Yellow; Glucose Urine UA Negative (Negative); Leukocyte Esterase Urine Moderate (2+) (Negative); Nitrite Urine Negative (Negative); PH 5.5 (5.0-9.0); UMIC TRIGGER UA YES; Urine Blood Negative (Negative); Urine Ketones Negative (Negative); Urine Protein Negative (Neg-Trace)
[2024-09-15 12:45] LABS: Bacteria Urine 2+ (None Seen); Hyaline Casts Urine 0-2 /LPF (0-2); RBC Urine 0-2 /HPF (0-2); WBC Urine 21-50 /HPF (0-5)
== END 2024-09-15 11:18 | disposition home or self-care (01) ==
LOC: HO.LAB 11:17
PROVIDERS: PCP Physician Assistant; Visit Provider Urology
DX: N20.0 Calculus of kidney (principal); N30.90 Cystitis, unspecified without hematuria; N12 Tubulo-interstitial nephritis, not specified as acute or chronic
CPT/HCPCS: 81001; 87086; 87088; 87186

== ENCOUNTER 2024-11-09 06:09 | Outpatient (REF) | payer MEDICARE, BC, OTHER, SELFPAY ==
--- NOTE | ~2024-11-09 | FL_ITS ---
EXAMINATION: FL GUIDANCE ONLY HISTORY: M47.812 - Spondylosis without myelopathy or radiculopathy, cervical region COMPARISON: None available. TECHNIQUE: Fluoroscopy time: 0.9 minutes. Cumulative Dose: 4.67 mGy. DAP: 0.0517 uGy-m2 (microgray-meter squared). Images: 2. FINDINGS: Images demonstrate needles and contrast in the upper neck bilaterally. FL/FL guidance in treatment room IMPRESSION: Fluoroscopy during procedure. Please see procedure report for additional information. Electronically signed by: Mian Tan MD 11/10/2024 07:30 AM OSVALDO
== END 2024-11-09 06:10 | disposition home or self-care (01) ==
LOC: CF 06:09
PROVIDERS: Visit Provider Anesthesiology
DX: M47.812 Spondylosis without myelopathy or radiculopathy, cervical region (principal)
CPT/HCPCS: 64490; 64491; J2003; J2795; Q9967

== ENCOUNTER 2024-11-09 08:00 | Outpatient (AMB) | payer MEDICARE, BC, OTHER, SELFPAY ==
[2024-11-09 08:04] VITALS: BP 140/78; PULSE 75; RESP 16; O2SAT 96
--- NOTE | 2024-11-09 08:04 | A.OFFVIS_ITS ---
Vital Signs 11/09/24 08:04 11/09/24 08:43 BP 140/78 H 169/89 H Blood Pressure Location Lt brachial Lt brachial Position Sitting Sitting Respiration 16 16 Pulse 75 66 Pulse Source Pulse Oximeter Pulse Oximeter Pulse Oximetry (%) 96 98 Oxygen Delivery Method Room Air Room Air Intake Visit Reasons: BILATERAL DIAGNOSTIC C2, C3, C4 MBB Allergies No Known Allergies [No Known Allergies*] Allergy (Verified 11/09/24 08:05) Medication List - Last Reconciled 11/09/24 by Gale Baldwin LPN acetaminophen (Tylenol) 325 mg PO QID PRN prednisone 10 mg PO DIRECTED 9 days pregabalin 75 mg PO DAILY 90 days pyridoxine (vitamin B6) 50 mg PO DAILY 90 days sulfamethoxazole-trimethoprim 800-160 mg (Bactrim DS) 1 tab PO BID 5 days tizanidine 2 mg PO BID 20 days tramadol 50 mg PO BEDTIME 7 days PFSH Medical History Cough COVID-19 Preop exam for internal medicine Allergic rhinitis Hypertriglyceridemia History of ARDS Osteoarthritis of right patellofemoral joint Restless leg syndrome Retained ureteral stent History of kidney stones Renal stones Iliotibial band syndrome, right leg Surgical History History of esophagogastroduodenoscopy (EGD) Hx of left breast biopsy Hx of colonoscopy Hx of lithotripsy History of cholecystectomy Family History Father No problems noted. Mother No problems noted. Social History Housing: House Alcohol intake: current Patient Tobacco Use Status: Former Tobacco user Years Smoked: quit 1999 e-Cigarette/Vaping Use: Never Used service: No Current occupational status: retired Cognitive needs: No Hearing needs: No Vision needs: No Physical Exam Vital Signs: Last Vital Signs Pulse 66 11/09/24 08:43 Resp 16 11/09/24 08:43 BP 169/89 H 11/09/24 08:43 Pulse Ox 98 11/09/24 08:43 Oxygen Delivery Method Room Air 11/09/24 08:43 Assessment & Plan Assessment & Plan (1) Spondylosis without myelopathy or radiculopathy, cervical region: Code(s): M47.812 - Spondylosis without myelopathy or radiculopathy, cervical region Category: Medical Plan Diagnostic medial branch block C2-C3- C4 bilateral. Informed consent was explained thoroughly to the patient.? All questions about benefits and risks for the procedure were answered. Time-out was performed delineating correct side and site of the procedure name date of of the patient allergies of the patient. Patient came to the operating room and was positioned prone on the operating table with the pillow under the chest. The upper back and entire posterior neck were prepped with ChloraPrep and draped with self adhesive sterile utility towels. C-arm was brought over the operating field and picture of C2-C3 C4 vertebra were sequentially obtain on the screen. The point of interest were delineated as the lateral masses of the above- mentioned vertebra. The waistline of each lateral mass was chosen as the point of needle advancement. The projection of the point of interest to the skin was injected with small amount of lidocaine 2% mixed with ropivacaine 0.5%. After that 3 needles 3-1/2 inch long 22 gauge were inserted through the skin wheals and advanced over the point of interest 1st on the right and then on the left side. When tips of the needles gently contacted the bone injection of the contrast was performed delineating no intravascular and no intrathecal uptake of the contrast. After that small amount of ropivacaine 0.5% no more than 1 mL was injected at each needle location. Upon completion of the injections the needles were removed and sterile Band-Aids were applied. Patient was taken outside of the operating room to recovery room where he recovered uneventfully. Orders: Orders FL guidance in treatment room Today M47.812 - Spondylosis without myelopathy or radiculopathy, cervical region Coding Level of Care Code Procedure Only Diagnoses Spondylosis without myelopathy or radiculopathy, cervical region M47.812
[2024-11-09 08:43] VITALS: BP 169/89; PULSE 66; RESP 16; O2SAT 98
== END 2024-11-09 08:54 | disposition home or self-care (01) ==
PROVIDERS: PCP Physician Assistant; Visit Provider Anesthesiology
DX: M47.812 Spondylosis without myelopathy or radiculopathy, cervical region (principal)
CPT/HCPCS: 64490; 64491

== ENCOUNTER 2024-11-15 11:31 | Outpatient (AMB) | payer MEDICARE, BC, OTHER, SELFPAY ==
--- NOTE | 2024-11-15 11:34 | MHC.OFFVIS ---
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 She reported today that her pain before the procedure was 5/10. After the procedure pain was for 2 hours 0/10. She felt some discomfort 2/10 at the sites of the injections however her regular pain in the most upper portion of her neck with radiation to the back of her head disappeared and return only at 01:00 next morning. Therefore I think that the pain generations of this patient is spondylosis of the upper cervical spine. I offered this patient to go for a trial of sprint PNS bilateral at C3 positioned. I will schedule her for this 2 injections 2 weeks apart. Patient agreed to go for the procedure. Prior: very pleasant 68 years old female who presents in my office with complains on pain in the neck with radiation into the back of the head with changing of the laterality. She reported that her pain started 2 years ago. She thinks that the cause of the problem is arthritis in the neck. She reports the level of the pain today 5 to 8/10. She also reports that headache is severe could be 9 to 10/10. She is unable to sleep normally because of her pain. She can do activities of daily living, she can take care of herself, she can function normally. 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 Damien had x-ray of the cervical spine performed on [facility]. She also had physical therapy at [facility] she reported temporary relief of her pain. She also had massage therapy and it did not help her pain. She was taking Advil 2 tablets twice a day and that was temporarily helpful for her pain but to 3 hours after the pain come back with the same strength. She also taking Lyrica 75 mg for restless leg syndrome Her past medical history is significant for kidney stones history of gallstones and arthritis. Past surgical history is significant for gallbladder surgery in 2012 and multiple procedures for kidney stone removals. 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 ON LICENSE OF [facility] Medical History Cough COVID-19 Preop exam for internal medicine Allergic rhinitis Hypertriglyceridemia History of ARDS Osteoarthritis of right patellofemoral joint Restless leg syndrome Retained ureteral stent History of kidney stones Renal stones Iliotibial band syndrome, right leg Surgical History History of esophagogastroduodenoscopy (EGD) Hx of left breast biopsy Hx of colonoscopy Hx of lithotripsy History of cholecystectomy Family History Father No problems noted. Mother No problems noted. Social History Housing: House Alcohol intake: current Patient Tobacco Use Status: Former Tobacco user Years Smoked: quit 1999 e-Cigarette/Vaping Use: Never Used service: No Current occupational status: retired Cognitive needs: No Hearing needs: No Vision needs: No Review of Systems Const All systems reviewed & are unremarkable except as noted in HPI and below ENT Reports Normal hearing present Neuro Reports Normal hearing present, Denies Abnormal speech present, Denies confusion and Denies Sensory deficit (Neuro) Psych Denies confusion Physical Exam Vital Signs: Last Vital Signs Pulse 61 11/15/24 11:36 BP 144/74 H 11/15/24 11:36 BMI result Body Mass Index 25.7 Const General: cooperative, healthy appearing, comfortable, no acute distress and well developed; No confusion Nutritional Appearance: average body habitus and well nourished Orientation/consciousness: patient oriented x3 and No confusion Limitations: no limitations Eyes General: appearance normal, both eyes and all related structures Pupils: Equal, round and reactive pupils present EOM: EOMs intact bilaterally Neck Other: Flexing head forward and flexing had backwards aggravates pain. Spurling maneuver does not cause pain radiation to the bilateral arms. Lhermitte test is negative for pain radiating down the spine. Tenderness on palpation in paraspinal spinal region of the cervical spine. She denies weakness and numbness of bilateral upper or lower extremities. She denies pelvic organ dysfunction. Neck: Yes full ROM Chest Chest palpation & inspection: normal inspection of the chest Resp Effort & Inspection: normal respiratory effort, able to speak in complete sentences, normal respiratory pattern, no audible wheezes and no cough Cardio Jugular venous distension: no JVD GI Inspection: Yes normal to inspection Neuro General: patient oriented x3, gait normal and No confusion Cranial nerves: Yes CN's II-XII intact bilaterally, Yes Equal, round and reactive pupils present, Yes Normal hearing present and Yes Ability to bilaterally elevate shoulders present Speech: No Abnormal speech present Gait exam (Neuro): Normal gait present Motor exam (neuro): 5/5 motor strength present throughout Sensory Exam: No Sensory deficit (Neuro) Extrem General: No pedal edema Psych Speech and movement: Normal speech and movement present Affect: normal affect Attitude: cooperative Thought process: Normal thought process present Thought content: Normal thought content present Insight: Good insight present (Psych) Judgement: Good judgement present (Psych) Assessment & Plan Assessment & Plan (1) Spondylosis without myelopathy or radiculopathy, cervical region: Code(s): M47.812 - Spondylosis without myelopathy or radiculopathy, cervical region Category: Medical (2) Chronic pain syndrome: Code(s): G89.4 - Chronic pain syndrome Category: Medical Plan Diagnostic C2-C3 C4 medial branch block bilateral resulted in more than 12 hours of complete pain relief. Sprint PNS is offered to the patient. I will schedule her for bilateral C3 sprint PNS.. Coding Level of Care Code Est Pt Level 3 (88162) Diagnoses Spondylosis without myelopathy or radiculopathy, cervical region M47.812 Chronic pain syndrome G89.4
[2024-11-15 11:36] VITALS: BP 144/74; PULSE 61; BMI 25.7
== END 2024-11-15 11:47 | disposition home or self-care (01) ==
PROVIDERS: PCP Physician Assistant; Visit Provider Anesthesiology
DX: M47.812 Spondylosis without myelopathy or radiculopathy, cervical region (principal); G89.4 Chronic pain syndrome
CPT/HCPCS: 99213

== ENCOUNTER → 2024-11-15 11:31 | Outpatient (BNVA) | payer MEDICARE, BC, OTHER, SELFPAY | PROVIDERS: PCP Physician Assistant; Visit Provider Anesthesiology | DX: M47.812 Spondylosis without myelopathy or radiculopathy, cervical region (principal); G89.4 Chronic pain syndrome | CPT/HCPCS: 99212 ==

== ENCOUNTER → 2025-05-16 13:09 | Outpatient (BNVA) | payer MEDICARE, BC, OTHER, SELFPAY | PROVIDERS: PCP Physician Assistant; Visit Provider Urology | DX: N30.10 Interstitial cystitis (chronic) without hematuria (principal); R39.9 Unspecified symptoms and signs involving the genitourinary system | CPT/HCPCS: 51700; 51702 ==

== ENCOUNTER 2025-06-15 09:38 | Outpatient (REF) | payer MEDICARE, BC, OTHER, SELFPAY ==
--- OUTSIDE RECORDS SUMMARY | 2025-06-15 10:34 | XMS_ITS | Patient Health Record ---
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 Name Role Phone Gera Hernandez MD Primary Care Provider Richmond Guzman Unavailable [phone] Reason For Referral No Information Medications Medication SIG (Take, Route, Fr equency, Duration) Notes Start Date End Date Status Advil 200 MG 1 capsule as needed Orally every 6 hrs 03/12/2013 Active clonazePAM 0.5 MG 1/2 tablet Orally Once a day Active Problems Problem Type SNOMED Code ICD Code Onset Dates Problem Status W/U Status Risk Notes Problem Disorder of joint of ankle and/or foot (761504851) Arthritis - Degenerative (719.97) Active confirmed Problem Neuralgia - Neuritis (729.2) Active confirmed Problem 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) Flat Foot, Congenital (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) Active confirmed Problem Pain in limb (09488176) Pain in Limb (729.5) Active confirmed Problem Tailors bunion (9283044) Tailors Bunion (727.1) Active confirmed Plan Of Treatment No Information Insurance Providers Payer Name Payer Address Payer Phone Subscriber Number Group Number Insured Name Patient Relationship to Insured Coverage Start Date Coverage End Date [facility] [id number] [place] [address] [id number] He Arce Spouse - patient is the spouse of the insured 9 Medical (General) History Medical History History ICD Code osteoarthritis chicken pox measles Surgical History Surgery Date(Month/Year) gall bladder 2005
== END 2025-06-15 09:39 | disposition home or self-care (01) ==
LOC: HO.MAMMO 09:38
PROVIDERS: PCP Physician Assistant; Visit Provider Physician Assistant
DX: Z12.31 Encounter for screening mammogram for malignant neoplasm of breast (principal)
CPT/HCPCS: 77063; 77067

== ENCOUNTER → 2025-06-15 09:45 | Outpatient (BNV) | payer MEDICARE, BC, OTHER, SELFPAY | PROVIDERS: PCP Physician Assistant; Visit Provider Internal Medicine | DX: Z12.31 Encounter for screening mammogram for malignant neoplasm of breast (principal) | CPT/HCPCS: 77063; 77067 ==

== ENCOUNTER 2025-07-15 07:27 | Emergency (ER) | payer MEDICARE, BC, OTHER, SELFPAY ==
--- NOTE | ~2025-07-15 | CT_ITS ---
EXAMINATION: CT ABDOMEN AND PELVIS WITH CONTRAST CLINICAL INFORMATION: Left lower quadrant abdominal pain COMPARISON: 10/25/2019. TECHNIQUE: Multidetector volumetric images were obtained from the superior aspect of the liver through the pubic symphysis following administration 85 mL of Omnipaque 350 intravenous contrast. Sagittal and coronal reformatted images were obtained on the technologist's workstation. Oral contrast: No This CT examination was performed using dose optimization techniques as appropriate, variously including the following: *Automated exposure control *Adjustment of mA and/or kV according to patient size (this includes techniques or standardized protocols for targeted exams where dose is matched to indication/reason for exam; i.e. extremities or head) *Use of iterative reconstruction technique FINDINGS: LUNG BASES: Lung bases are essentially clear. There is minimal subtle pleural scarring in both costophrenic sulci. Heart size is normal. No pericardial effusion. Mild pectus excavatum. LIVER, GALLBLADDER, AND BILIARY TREE: The liver is normal in size, shape, and attenuation. No focal hepatic lesion or intrahepatic biliary ductal dilatation is present. Mild prominence of the extrahepatic bile ducts likely secondary to reservoir effect from cholecystectomy. Gallbladder is surgically absent. PANCREAS: Unremarkable. SPLEEN: Unremarkable. ADRENAL GLANDS: Unremarkable. KIDNEYS AND URETERS: Left kidney demonstrates focal mid and inferior pole scarring. No hydronephrosis or mass. There is a nonobstructing 6 mm calculus in the midpole. The left ureter is nondilated. Right kidney demonstrates no evidence of hydronephrosis, mass, or calculus. The right ureter is nondilated. BLADDER: Unremarkable. GASTROINTESTINAL TRACT: There is extensive diverticulosis of the colon, involving both the right and left hemicolon, most severe in the sigmoid region. There is focal inflammation of the mid descending colon where there is an enhancing diverticulum, and mild associated colonic wall thickening and pericolonic inflammation. Findings are consistent with uncomplicated acute diverticulitis. There is no rectal abnormality. A normal appendix is visualized. The small bowel is normal in caliber and course. No wall thickening or inflammation. The stomach is decompressed. The duodenal sweep is normal. PERITONEUM: No free air or ascites. ABDOMINAL WALL: No significant hernia is appreciated. LYMPH NODES: There is no abnormal lymphadenopathy present. VASCULAR: Moderate atheromatous calcification of the aorta and iliac arteries. There is no aneurysm present. PELVIC VISCERA: The uterus and adnexa are unremarkable. OSSEOUS STRUCTURES: There is no suspicious lytic or blastic bone lesion. There is a mild levoconvex scoliosis of the lumbar spine with moderate to severe multilevel spondylosis. Sclerosis of the endplates is present at L2-3, L4-5, and L5-S1. Disc vacuum phenomenon is present spanning L2-S1. Mild degenerative changes in both hip joints. CT/CT abdomen pelvis w IV con IMPRESSION: 1. Acute non-complicated diverticulitis of the mid descending colon. 2. Extensive diverticulosis of the entire colon. 3. Nonobstructing left nephrolithiasis. 4. Additional ancillary findings as discussed in the body of the report. Electronically signed by: Jean Pierre Lezama MD 07/15/2025 10:35 AM EDT
[2025-07-15 07:31] VITALS: BP 134/76; PULSE 78; RESP 16; TEMP 36.4; O2SAT 96; BMI 24.9
--- NOTE | 2025-07-15 08:02 | ED.ABDPAIN ---
HPI - Abdominal Pain General Chief Complaint: Abdominal Pain Stated Complaint: ? Diverticulitis Time Seen by Provider: 07/15/25 07:58 Source: patient, family and old records reviewed Mode of arrival: ambulatory Limitations: no limitations History of Present Illness ED Provider: LORRAINE HPI narrative: 69 yo female with PMH Of lower back pain and issues, gastritis, GERD, hypertriglyceridemia, hx of diverticula on colonoscopy 2021 but no hx of diverticulitis. She comes in with c/o LLQ pain and softer stools but no fevers, n/v/d. No blood reported. She is able to eat and drink. Her LLQ pain was there last weekend but went away until it came back and was worse over 3 days. She has not had diverticulitis before. MD elicited complaint: abdominal pain Pertinent past history: none Onset (ago): day(s) (few) Pain Consistency: colicky Location: LLQ Severity: moderate Quality: cramping and aching Radiation: suprapubic Migration to: suprapubic Exacerbating factors: nothing Relieving factors: nothing Associated symptoms: denies other symptoms Related Data Home Medications ?Medication ?Instructions ?Recorded ?Confirmed acetaminophen 325 mg capsule 325 mg PO QID PRN Pain 06/19/21 11/09/24 (Tylenol) Previous Rx's ?Medication ?Instructions ?Recorded pyridoxine (vitamin B6) 50 mg 50 mg PO DAILY 90 days #90 tabs 01/10/25 tablet prednisone 10 mg tablet 10 mg PO DIRECTED 9 days #18 03/22/25 tabs valacyclovir 1 gram tablet 1,000 mg PO Q12H 7 days #14 tabs 04/18/25 (Valtrex) sulfamethoxazole 800 1 tab PO BID 5 days #10 tabs 05/15/25 mg-trimethoprim 160 mg tablet (Bactrim DS) pregabalin 75 mg capsule 75 mg PO DAILY 90 days #90 caps 06/27/25 tizanidine 2 mg tablet 2 mg PO BID muscle spasticity 20 06/27/25 days #40 tabs amoxicillin 875 mg-potassium 1 tab PO BID #19 tabs 07/15/25 clavulanate 125 mg tablet hydrocodone 5 mg-acetaminophen 325 1 tab PO Q6H PRN pain #10 tabs 07/15/25 mg tablet ondansetron 4 mg disintegrating 4 mg PO Q8H PRN nausea and 07/15/25 tablet vomiting #20 tabs Allergies Allergy/AdvReac Type Severity Reaction Status Date / Time No Known Allergies (No Known Allergy Verified 07/15/25 07:33 Allergies*) Review of Systems Review of Systems Constitutional : No Fever, No Chills Cardiovascular : No Chest Pain, No SOB Respiratory : No Cough, No Sputum, No Wheezing Gastrointestinal : no Nausea, no Vomiting, no Diarrhea, pos abdominal Pain, No Hematochezia, No Melena Genitourinary : No Dysuria, No Urinary Frequency, No Hematuria, No Urgency Musculoskeletal : No joint pain, No Myalgias, No Joint Swelling Skin : No Skin Lesions, No rash All other systems reviewed and are negative. Yes all other systems are reviewed and are negative [facility] Past Medical History Attestation statement: The following information was validated with the patient. Source: old records reviewed Medical History Cough COVID-19 Preop exam for internal medicine Allergic rhinitis Hypertriglyceridemia History of ARDS Osteoarthritis of right patellofemoral joint Restless leg syndrome Retained ureteral stent History of kidney stones Renal stones Iliotibial band syndrome, right leg Surgical History History of esophagogastroduodenoscopy (EGD) Hx of left breast biopsy Hx of colonoscopy Hx of lithotripsy History of cholecystectomy Family History Family History Father No problems noted. Mother No problems noted. Social History Social History Housing: House Alcohol intake: current Patient Tobacco Use Status: Former Tobacco user Years Smoked: quit 2000 Smoked in Last 30 Days: No e-Cigarette/Vaping Use: Never Used Use of substances other than those prescribed or required for medical reasons: No Advance Directives: No Advance Directives Information Provided: Yes service: No Current occupational status: retired Cognitive needs: No Hearing needs: No Vision needs: No Physical Exam ED Vital Signs: Vital Signs - 24 hr 07/15/25 07:31 07/15/25 08:16 Temperature 97.5 F Pulse Rate 78 71 Respiratory Rate 16 16 Blood Pressure 134/76 138/74 Pulse Oximetry 96 97 Oxygen Delivery Method Room Air Room Air BMI result Body Mass Index 24.9 Appearance: Alert. Oriented X3. No acute distress. Eyes: Pupils equal, round and reactive to light. ENT: Pharynx normal. Neck: Normal inspection. Neck supple. CVS: Normal heart rate and rhythm. Pulses normal. Respiratory: No respiratory distress. Breath sounds normal. Abdomen: Soft and mild ttp in LLQ but no rebound or guarding Skin: Skin warm and dry. Normal skin color. Extremities: No lower extremity edema. Neuro: Oriented X 3. No motor deficit. No sensory deficit. Medical Decision Making Medical Decision Making [facility] Narrative: 69 yo female with PMH Of lower back pain and issues, gastritis, GERD, hypertriglyceridemia, hx of diverticula on colonoscopy 2021 now here with LLQ she has no signs of acute abdomen on exam and I suspect more diverticular disease or renal colic. She has no pain to suggest ischemia and she has symmetric distal pulses and has no severe pain doubt dissection/AAA. Will obtain labs, UA, CT scan and IV morphine for pain. She is suitable for outpatient treatment pending results. Differential Diagnosis Differential Diagnoses: The differential diagnosis associated with the presentation includes renal colic, diverticulitis Admission/Observation Consideration of admission/observation: Escalation of care including admission/observation considered uncomplicated diverticulitis Lab Data [facility] Lab Attestation statement: I reviewed the patient's lab results. 07/15/25 08:17 07/15/25 09:03 Labs: Lab Results 07/15/25 07/15/25 Range/Units 08:17 09:03 WBC 12.6 H (4.8-10.8) X10*3/uL RBC 4.45 (4.20-5.50) X10*6/uL Hgb 13.4 (12.0-16.0) g/dl Hct 39.2 (37.0-47.0) % MCV 88.1 (80.0-98.0) fL MCH 30.1 (27.0-33.0) pg MCHC 34.2 (31.0-35.0) g/dl RDW 13.1 (11.0-16.0) % Plt Count 286 (160-400) X10*3/uL MPV 10.5 (9.4-12.3) fL Immature Gran % (Auto) 0.4 (0.0-0.4) % Neut % (Auto) 82.8 H (45-73) % Lymph % (Auto) 10.0 L (20-40) % [place] % (Auto) 5.9 (2-11) % Eos % (Auto) 0.5 (0-4) % Baso % (Auto) 0.4 (0-2) % Lymph # (Auto) 1.3 (1.2-4.9) X10*3/uL [place] # (Auto) 0.7 (0.1-1.2) X10*3/uL Eos # (Auto) 0.1 (0.0-0.4) X10*3/uL Baso # (Auto) 0.1 (0.0-0.2) X10*3/uL Abs Immat Gran (auto) 0.05 H (0.00-0.03) X10*3/uL Absolute Neuts (auto) 10.4 H (2.0-8.3) x10*3/uL Absolute Nucleated RBC 0.000 (0.0-0.012) X10*3/uL Nucleated RBC % (auto) 0.0 (0.0-0.2) /100WBC Sodium 139 (135-145) mmol/L Potassium 4.0 (3.3-5.1) mmol/L Chloride 112 H (96-108) mmol/L Carbon Dioxide 22 (22-29) mmol/L Anion Gap 9 L (12-20) BUN 20 H (9-16) mg/dL Creatinine 0.75 (0.5-1.4) mg/dL Estim Creat Clear Calc 64.2 Estimated GFR > 60 Random Glucose 98 (60-115) mg/dL Calcium 9.3 (8.4-10.2) mg/dL Magnesium 2.1 (1.6-2.6) mg/dL Total Bilirubin 0.5 (0.0-1.0) mg/dL Direct Bilirubin 0.2 (0.0-0.5) mg/dL AST 24 (5-31) U/L ALT 19 (0-31) U/L Alkaline Phosphatase 98 (39-117) U/L C-Reactive Protein 3.65 H (< or = 0.50) mg/dL Total Protein 6.8 (6.5-8.0) g/dL Albumin 4.3 (3.5-5.0) g/dL Lipase 31 (8-78) U/L Urine Color Yellow Urine Appearance Clear Urine pH 6.0 (5.0-9.0) Ur Specific [place] 1.015 (1.005-1.025) Urine Protein Negative (Neg-Trace) mg/dL Urine Glucose (UA) Negative (Negative) mg/dL Urine Ketones Trace (Negative) mg/dL Urine Blood Negative (Negative) Urine Nitrite Negative (Negative) Ur Leukocyte Esterase Small (1+) H (Negative) Urine RBC 0-2 (0-2) /HPF Urine WBC 0-5 (0-5) /HPF Ur Squamous Epith Cells 0-2 (0-2) /HPF Urine Bacteria None Seen (None Seen) Hyaline Casts 0-2 (0-2) /LPF Independent Interpretation I performed an independent interpretation of an: CT Scan (uncomplicated diverticulitis) Radiology Impression Discussion of test interpretation with radiology: I have reviewed the radiologist's reading. Independent Historian Clinical information obtained from an independent historian. History obtained from or confirmed by: Spouse External Record Review External record reviewed: Outpatient record Prescription Management I considered prescription management with: Pain Medication and Antibiotic Medications Administered Discontinued Medications Generic Name Dose Route Start Last Admin Trade Name Freq PRN Reason Stop Dose Admin Lactated Ringer's 1,000 mls @ 999 mls/hr 07/15/25 08:07 07/15/25 09:44 Lr IV 07/15/25 09:07 Infused .Q1H1M ONE Infusion Iohexol 100 ml 07/15/25 10:06 07/15/25 10:06 Iohexol 350 Mg/Ml 100 Ml Infus..Btl IV 07/15/25 10:07 85 ml ONCE ONE Administration Morphine Sulfate 4 mg 07/15/25 08:07 07/15/25 08:20 Morphine Sulfate 4 Mg/Ml Cartridge IVPUSH 07/15/25 08:08 4 mg ONCE ONE Administration Protocol Ondansetron HCl 4 mg 07/15/25 08:07 07/15/25 08:20 Ondansetron Hcl 4 Mg/2 Ml Vial IVPUSH 07/15/25 08:08 4 mg ONCE ONE Administration Discharge Plan Discharge Clinical Impression: Diverticulitis Patient Disposition: Home, Self-Care Instructions: Diverticulitis (ED), Diverticulitis Diet (ED) Additional Instructions: labs reassuring eat a bland diet for 72 hours and drink plenty of fluids, return for worsening pain, fevers, vomiting, unable to eat or drink. occasional blood on stool is okay but not ambar clots or filling toilet. follow up with your doctor in 2 weeks. rest and stay hydrated On amoxicillin-clavulanate, softer bowel movements are to be expected. Call your provider if you move your bowels more than 4 times a day, your bowel movements are almost all liquid, or you get a rash.? LUNG BASES: Lung bases are essentially clear. There is minimal subtle pleural scarring in both costophrenic sulci. Heart size is normal. No pericardial effusion. Mild pectus excavatum. LIVER, GALLBLADDER, AND BILIARY TREE: The liver is normal in size, shape, and attenuation. No focal hepatic lesion or intrahepatic biliary ductal dilatation is present. Mild prominence of the extrahepatic bile ducts likely secondary to reservoir effect from cholecystectomy. Gallbladder is surgically absent. PANCREAS: Unremarkable. SPLEEN: Unremarkable. ADRENAL GLANDS: Unremarkable. KIDNEYS AND URETERS: Left kidney demonstrates focal mid and inferior pole scarring. No hydronephrosis or mass. There is a nonobstructing 6 mm calculus in the midpole. The left ureter is nondilated. Right kidney demonstrates no evidence of hydronephrosis, mass, or calculus. The right ureter is nondilated. BLADDER: Unremarkable. GASTROINTESTINAL TRACT: There is extensive diverticulosis of the colon, involving both the right and left hemicolon, most severe in the sigmoid region. There is focal inflammation of the mid descending colon where there is an enhancing diverticulum, and mild associated colonic wall thickening and pericolonic inflammation. Findings are consistent with uncomplicated acute diverticulitis. There is no rectal abnormality. A normal appendix is visualized. The small bowel is normal in caliber and course. No wall thickening or inflammation. The stomach is decompressed. The duodenal sweep is normal. PERITONEUM: No free air or ascites. ABDOMINAL WALL: No significant hernia is appreciated. LYMPH NODES: There is no abnormal lymphadenopathy present. VASCULAR: Moderate atheromatous calcification of the aorta and iliac arteries. There is no aneurysm present. PELVIC VISCERA: The uterus and adnexa are unremarkable. OSSEOUS STRUCTURES: There is no suspicious lytic or blastic bone lesion. There is a mild levoconvex scoliosis of the lumbar spine with moderate to severe multilevel spondylosis. Sclerosis of the endplates is present at L2-3, L4-5, and L5-S1. Disc vacuum phenomenon is present spanning L2-S1. Mild degenerative changes in both hip joints. CT/CT abdomen pelvis w IV con IMPRESSION: 1. Acute non-complicated diverticulitis of the mid descending colon. 2. Extensive diverticulosis of the entire colon. 3. Nonobstructing left nephrolithiasis. 4. Additional ancillary findings as discussed in the body of the report. Prescriptions: New hydrocodone-acetaminophen 5-325 mg tablet 1 tab PO Q6H PRN (Reason: pain) Qty: 10 0RF Rx Instructions: partial fill okay; Partial Fill upon patient request. ondansetron 4 mg tablet,disintegrating 4 mg PO Q8H PRN (Reason: nausea and vomiting) Qty: 20 0RF amoxicillin-pot clavulanate 875-125 mg tablet 1 tab PO BID Qty: 19 0RF No Action pyridoxine (vitamin B6) 50 mg tablet 50 mg PO DAILY 90 Days Qty: 90 3RF prednisone 10 mg tablet 10 mg PO DIRECTED 9 Days Qty: 18 0RF Rx Instructions: Take 3 tablets x3 days, 2 tablets x3 days, 1 tablet x3 days valacyclovir [Valtrex] 1 gram tablet 1,000 mg PO Q12H 7 Days Qty: 14 0RF sulfamethoxazole-trimethoprim [Bactrim DS] 800-160 mg tablet 1 tab PO BID 5 Days Qty: 10 0RF tizanidine 2 mg tablet 2 mg PO BID 20 Days Qty: 40 2RF Rx Instructions: Increase frequency to b.i.d. dosing pregabalin 75 mg capsule 75 mg PO DAILY 90 Days Qty: 90 2RF acetaminophen [Tylenol] 325 mg capsule 325 mg PO QID PRN (Reason: Pain) Print Language: Bangladeshi
[2025-07-15 08:16] VITALS: BP 138/74; PULSE 71; RESP 16; O2SAT 97
[2025-07-15] MEDS: Lactated Ringers 1,000 ML 999 ML IV (08:20)
[2025-07-15 08:23] LABS: MANUAL DIFF FLAG NO
[2025-07-15 08:25] LABS: Hematocrit 39.2 % (37.0-47.0); Hemoglobin 13.4 g/dl (12.0-16.0); Imm Gran Abs Auto 0.05 X10*3/uL (0.00-0.03); Imm Gran Pct Auto 0.4 % (0.0-0.4); Lymphocytes Absolute Auto 1.3 X10*3/uL (1.2-4.9); Mean Corpuscular HGB Conc 34.2 g/dl (31.0-35.0); Mean Corpuscular Hemoglobin 30.1 pg (27.0-33.0); Mean Corpuscular Volume 88.1 fL (80.0-98.0); NRBC Abs Auto 0.000 X10*3/uL (0.0-0.012); NRBC Pct Auto 0.0 /100WBC (0.0-0.2); Platelet Count 286 X10*3/uL (160-400); Red Blood Count 4.45 X10*6/uL (4.20-5.50); White Blood Count 12.6 X10*3/uL (4.8-10.8)
--- NOTE | 2025-07-15 08:25 | PC.NURSE ---
a&ox4. vss and up to date. pt presents to the ED c/o intermittent left lower/diffuse abd pain x 1 week. pt reports sx worsened last night which prompted her to come to the ED. hx kidney stones. denies any recent n/v/d/urinary sx/recent abx use. 20gIV placed in the right wrist - labs obtained/sent to lab. IVF/medication administered per provider order. pt pending CT to be completed at this time. on RA w/o difficulty - no sob/wob noted. respirations even/unlabored. spouse bedside for support. plan of care ongoing. call wood placed within reach.
[2025-07-15 08:26] LABS: Appearance Urine Clear; Glucose Urine UA Negative (Negative); PH 6.0 (5.0-9.0); Specific Gravity - Urine 1.015 (1.005-1.025); UMIC TRIGGER UACC YES
[2025-07-15 08:45] LABS: UACC Culture Trigger YES
[2025-07-15 09:33] LABS: Alanine Aminotransferase 19 U/L (0-31); Albumin Level 4.3 g/dL (3.5-5.0); Alkaline Phosphatase 98 U/L (39-117); Anion Gap 9 (12-20); Aspartate Amino Transferase 24 U/L (5-31); Blood Urea Nitrogen 20 mg/dL (9-16); Calcium 9.3 mg/dL (8.4-10.2); Carbon Dioxide 22 mmol/L (22-29); Chloride 112 mmol/L (96-108); Creatinine Clr Calc Pharmacy 64.2; Estimated Glomerular Filt Rate > 60; Magnesium 2.1 mg/dL (1.6-2.6); Potassium 4.0 mmol/L (3.3-5.1); Sodium 139 mmol/L (135-145); Total Protein 6.8 g/dL (6.5-8.0)
[2025-07-15] MEDS: iohexoL 350 MG/ML 100 ML INFUS..BTL IV (10:06)
[2025-07-15 10:49] LABS: Lipase 31 U/L (8-78)
[2025-07-15 11:18] VITALS: BP 137/74; PULSE 65; RESP 18; TEMP 37; O2SAT 96
[2025-07-15 11:27] VITALS: BP 137/74; PULSE 65; RESP 18; TEMP 37; O2SAT 96
== END 2025-07-15 11:27 | disposition home or self-care (01) ==
PROVIDERS: Emergency Provider Emergency Medicine; PCP Physician Assistant
DX: K57.92 Diverticulitis of intestine, part unspecified, without perforation or abscess without bleeding (principal); R10.9 Unspecified abdominal pain; M54.50 Low back pain, unspecified; K29.70 Gastritis, unspecified, without bleeding; K21.9 Gastro-esophageal reflux disease without esophagitis; E78.1 Pure hyperglyceridemia; R05.9 Cough, unspecified; J00 Acute nasopharyngitis [common cold]; G25.81 Restless legs syndrome; Z87.891 Personal history of nicotine dependence
CPT/HCPCS: 36415; 74177; 80048; 80076; 81001; 83690; 83735; 85025; 86140; 87086; 96361; 96374; 96375; 99285; J2270; J2405; J7120; Q9967

== ENCOUNTER → 2025-07-15 08:07 | Outpatient (BNV) | payer MEDICARE, BC, OTHER, SELFPAY | PROVIDERS: Emergency Provider Emergency Medicine; PCP Physician Assistant; Visit Provider Radiology Diagnostic Radiology | DX: N20.0 Calculus of kidney (principal); K57.30 Diverticulosis of large intestine without perforation or abscess without bleeding | CPT/HCPCS: 74177 ==

== ENCOUNTER 2025-08-03 07:37 | Outpatient (REF) | payer MEDICARE, BC, OTHER, SELFPAY ==
--- OUTSIDE RECORDS SUMMARY | 2025-08-03 07:40 | XMS_ITS | Patient Health Record ---
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 [id number] [place] [address] [id number] He Arce Spouse - patient is the spouse of the insured 9 Medical (General) History Medical History History ICD Code osteoarthritis chicken pox measles Surgical History Surgery Date(Month/Year) gall bladder 2005
[2025-08-03 08:09] LABS: Hematocrit 40.1 % (37.0-47.0); Hemoglobin 13.3 g/dl (12.0-16.0); Mean Corpuscular HGB Conc 33.2 g/dl (31.0-35.0); Mean Corpuscular Hemoglobin 29.6 pg (27.0-33.0); Mean Corpuscular Volume 89.3 fL (80.0-98.0); NRBC Abs Auto 0.000 X10*3/uL (0.0-0.012); NRBC Pct Auto 0.0 /100WBC (0.0-0.2); Platelet Count 302 X10*3/uL (160-400); Red Blood Count 4.49 X10*6/uL (4.20-5.50); White Blood Count 7.7 X10*3/uL (4.8-10.8)
[2025-08-03 08:52] LABS: Alanine Aminotransferase 25 U/L (0-31); Albumin Level 4.6 g/dL (3.5-5.0); Alkaline Phosphatase 104 U/L (39-117); Anion Gap 10 (12-20); Aspartate Amino Transferase 32 U/L (5-31); Blood Urea Nitrogen 19 mg/dL (9-16); Calcium 9.6 mg/dL (8.4-10.2); Carbon Dioxide 28 mmol/L (22-29); Chloride 108 mmol/L (96-108); Cholesterol 210 mg/dL (<200); Estimated Glomerular Filt Rate > 60; HDL Cholesterol 63 mg/dL (>40); Potassium 4.7 mmol/L (3.3-5.1); Sodium 141 mmol/L (135-145); Total Protein 7.1 g/dL (6.5-8.0); Triglycerides 98 mg/dL (<150)
== END 2025-08-03 07:38 | disposition home or self-care (01) ==
LOC: HO.LAB 07:37
PROVIDERS: PCP Physician Assistant; Visit Provider Physician Assistant
DX: E78.1 Pure hyperglyceridemia (principal)
CPT/HCPCS: 36415; 80053; 80061; 85027

== ENCOUNTER 2025-08-18 | Outpatient (REF) | payer MEDICARE, BC, OTHER, SELFPAY ==
--- OUTSIDE RECORDS SUMMARY | 2025-09-06 12:45 | XMS_ITS | Patient Health Record ---
Author Organization [facility] Address [address] [place] [address] Care Team Providers Care Program Eligibility Specialist Name Role Phone Gera Hernandez MD Primary Care Provider Richmond James [phone] Reason For Referral No Information Medications Medication [...] Disorder of joint of ankle and/or foot (100403060) Arthritis - Degenerative (719.97) Active confirmed Problem Neuralgia - Neuritis (729.2) Active confirmed Problem Congenital pes planus (59678261) Flat Foot, Congenital (754.61) Active confirmed Problem Pain in limb (91035719) Pain in Limb (729.5) Active confirmed Problem Tailors bunion (4117332) Tailors Bunion (727.1) Active confirmed Plan Of Treatment No Information Insurance Providers Payer Name Payer Address Payer Phone Subscriber Number Group Number Insured Name Patient Relationship to Insured Coverage Start Date Coverage End Date [facility] [id number] [place] [address] [id number] He Arce Spouse - patient is the spouse of the insured 9 Medical (General) History Medical History History ICD Code osteoarthritis chicken pox measles Surgical History Surgery Date(Month/Year) gall bladder 2005
== END 2025-08-18 00:01 | disposition home or self-care (01) ==
LOC: CF
PROVIDERS: PCP Physician Assistant; Visit Provider Physician Assistant
DX: Z00.00 Encounter for general adult medical examination without abnormal findings (principal); N20.0 Calculus of kidney; E78.2 Mixed hyperlipidemia
CPT/HCPCS: 99212

== ENCOUNTER 2025-08-18 10:07 | Outpatient (AMB) | payer MEDICARE, BC, OTHER, SELFPAY ==
--- NOTE | 2025-08-18 10:17 | AM.OFFVISMDC ---
Intake Vital Signs 08/18/25 10:19 Height 5 ft 4 in Weight 148 lb 6 oz BMI 25.5 BP 130/78 Blood Pressure Location Lt brachial Position Sitting Pulse 64 Pulse Source Pulse Oximeter Temp 97.5 F Temp Source Temporal Artery Scan Pulse Oximetry (%) 96 Oxygen Delivery Method Room Air Intake Visit Reasons: AWV Allergies No Known Allergies (No Known Allergies*) Allergy (Verified 08/18/25 10:31) Medication List - Last Reconciled 08/18/25 by Francesco Mcdonough PA-C acetaminophen (Tylenol) 325 mg PO QID PRN pregabalin 75 mg PO DAILY 90 days pyridoxine (vitamin B6) 50 mg PO DAILY 90 days tizanidine 2 mg PO BID 20 days HPI AWV HPI Details Patient is a 69-year-old female here today for an annual wellness visit.? Patient has a past medical history significant for nephrolithiasis, restless legs syndrome, borderline high cholesterol. Today we discussed patient's comprehensive care plan which was placed in the patient's documents We also discussed patient's gambell of care and end of life planning thus MOLST form reviewed .. We discussed patient's recent CT of abdomen which did show aortic moderate calcification. In the setting of patient's borderline high cholesterol and LDL will try low-dose statin therapy to reduce her cardiovascular risk Mammogram: Done in 06/01/2024 Vaccines: Up-to-date with COVID vaccine, flu vaccine, pneumonia, tetanus and shingles vaccines Colorectal cancer screening: Colonoscopy done in 2022, repeatin 5 years Laboratory Tests 08/12/23 08/07/24 08/03/25 13:49 07:59 07:47 RBC 4.79 4.49 Creatinine 0.93 0.88 Fasting Glucose 100 H AST 32 H ALT 25 Cholesterol 211 H 210 H LDL Cholesterol, C alc 120 H 128 H HPI Comments History of Present Illness Details reviewed past medical history- yes reviewed surgical / hospitalization history- yes reviewed current medications- yes reviewed family history- yes home safety throw rugs? grab bars? raised toilet seat? working smoke detectors? activities of daily living difficulty bathing or showering? difficulty dressing? difficulty using the toilet? difficulty getting in and out of bed? difficulty walking? receives help from other person's with any of the above tasks? instrumental activities of daily living uses telephone - gets to place out of walking distance- go shopping for groceries- repairs own meals- does own minor home maintenance- does own laundry- does own housework- manages own money- currently takes medication- end of life planning discussed advanced directives- yes advanced directives on file? discussed wishes expressed in advanced directives. fall risk have you had any falls with injuries in the past year? have you had 2 or more falls in the past year? fall risk assessment: [facility] Medical History Cough COVID-19 Preop exam for internal medicine Allergic rhinitis Hypertriglyceridemia History of ARDS Osteoarthritis of right patellofemoral joint Restless leg syndrome Retained ureteral stent History of kidney stones Renal stones Iliotibial band syndrome, right leg Surgical History History of esophagogastroduodenoscopy (EGD) Hx of left breast biopsy Hx of colonoscopy Hx of lithotripsy History of cholecystectomy Family History Father No problems noted. Mother No problems noted. Social History Housing: House Alcohol intake: current Patient Tobacco Use Status: Former Tobacco user Years Smoked: quit 1999 e-Cigarette/Vaping Use: Never Used service: No Current occupational status: retired Cognitive needs: No Hearing needs: No Vision needs: No Questionnaire Medicare Wellness Checkup [age] What gender do you identify with?: female During the past 4 weeks, how much have you been bothered by emotional problems such as feeling anxious, depressed, irritable, sad or downhearted, and blue?: not at all During the past 4 weeks, has your physical & emotional health limited your social activities with family, friends, neighbors, or groups?: not at all During the past 4 weeks, how much bodily pain have you generally had?: moderate pain During the past 4 weeks, was someone available to help you if you needed & wanted help?: yes, as much as I wanted During the past 4 weeks, what was the hardest physical activity you could do for at least 2 minutes?: moderate Can you get to places out of walking distance without help? (For eg., can you travel alone on buses, taxis or drive your car?): Yes Can you go shopping for groceries or clothes without someone's help?: Yes Can you prepare your own meals?: Yes Can you do your housework without help?: Yes Because of any health problems, do you need the help of another person with your personal care needs such as eating, bathing, dressing or getting around the house?: No Can you handle your own money without help?: Yes During the past 4 weeks, how would you rate your health in general?: good During the past 4 weeks how have things been going for you?: pretty well Are you having difficulties driving your car?: no Do you always fasten your seat belt when you are in a car?: yes, usually During past 4 weeks, have you been bothered by the following: never: Falling or dizzy when standing up, Sexual problems?, Trouble eating well?, Teeth or denture problems? and Problems using the telephone? and seldom: Tiredness or fatigue? Have you fallen 2 or more times in the past year?: No Are you afraid of falling?: No Are you a smoker?: no During the past 4 weeks, how many drinks of wine, beer, or other alcoholic beverages did you have?: 1 drink or less per week Do you exercise for about 20 minutes 3 or more times a week?: yes, all the time Have you been given information to help with the following?: no: Hazards in your house that might hurt you? and no: Keeping track of your medications? How often do you have trouble taking medicines the way you have been told to take them?: I always take medicine as prescribed How confident are you that you can control & manage most of your health problems?: very confident What is your race?: White Mini Mental State Exam (MMSE) Orientation What is the (year) (season) (date) (day) (month)?: year Where are we (state) (county) (town or city) (hospital) (floor)?: town or city Score Score: 2 Activity of Daily Living Bathing - sponge bath, tub bath or shower: receives no assistance (gets in/out by self, if usual bathing means Dressing - getting clothes from closets & drawers, including inner/outer garments & fasteners.: gets clothes & gets completely dressed without help Toileting - going to the 'toilet room' for urine/bowel elimination & cleaning self/arranging clothes: goes to toilet room, cleans self, arranges clothes without help Transfer: moves in & out of bed and chair without help (may use support object) Continence: controls urination/bowel movements completely by self Feeding: feeds self without help Total Score: 0 Information obtained from: patient Using telephone: independent Traveling: independent Shopping: independent Preparing meals: independent Housework: independent Taking medicine: independent Managing money: independent PHQ-9 Over the last 2 weeks, how often have you been bothered by any of the following problems? 1. Little interest or pleasure in doing things: not at all 2. Feeling down, depressed, or hopeless: not at all 3. Trouble falling or staying asleep, or sleeping too much: not at all 4. Feeling tired or having little energy: not at all 5. Poor appetite or overeating: not at all 6. Feeling bad about yourself - or that you are a failure or have let yourself or your family down: not at all 7. Trouble concentrating on things, such as reading the newspaper or watching television: not at all 8. Moving or speaking so slowly that other people could have noticed. Or the opposite - being so fidgety or restless that you have been moving around a lot more than usual: not at all 9. Thoughts that you would be better off or of hurting yourself in some way: not at all Total score: 0 Depression Screening Interpretation: Negative Depression Screening Done: Yes 92307 - PHQ-9 Billing: Patient declined-do not bill Source: Developed by Drs. Mian Johns, Michelle Baltazar, Owen Castellano and colleagues, with an educational mi from [employer]. Physical Exam Vital Signs: Last Vital Signs Temp 97.5 F 08/18/25 10:19 Pulse 64 08/18/25 10:19 BP 130/78 08/18/25 10:19 Pulse Ox 96 08/18/25 10:19 Oxygen Delivery Method Room Air 08/18/25 10:19 BMI result Body Mass Index 25.5 HEENT Other: hearing screening whisper test- passed Eyes Other: vision screening- 2020 OS OD OU Other: urinary incontinence? no Neuro Other: balance Romberg- normal tandem walk test- able walk-in turned test- able rise from sit to stand- within 2 seconds Assessment & Plan Assessment & Plan (1) Medicare annual wellness visit, subsequent: Code(s): Z00.00 - Encounter for general adult medical examination without abnormal findings Plan: As per HPI (2) HLD (hyperlipidemia): Code(s): E78.5 - Hyperlipidemia, unspecified Qualifiers: Hyperlipidemia type: mixed hyperlipidemia Qualified Code(s): E78.2 - Mixed hyperlipidemia Plan: Patient's recent lipid panel showing borderline high cholesterol and LDL. Due to noting moderate aortic atherosclerosis will trial low-dose statin therapy to help reduce her cardiovascular risks been Orders: Orders Lipid Panel Today E78.2 - Mixed hyperlipidemia Complete Blood Count no Diff Today E78.2 - Mixed hyperlipidemia Comprehensive [place]. Panel Fast Today E78.2 - Mixed hyperlipidemia Medications: New atorvastatin (Lipitor) 10 mg PO DAILY 90 tabs 1RF 90 days E78.5 - Hyperlipidemia, unspecified Quality Reporting (2019) Depression/Bipolar (159/160/161/177) PHQ-9: Total score: 0 Coding Level of Care Code Medicare Subsequent (G0439) Est Pt Level 3 (89034) Diagnoses Medicare annual wellness visit, subsequent Z00.00 Mixed hyperlipidemia E78.2 Hyperlipidemia type: mixed hyperlipidemia CPT Codes Advance Care Planning - Advance Care Planning discussion: On file, no changes ([id number]) Advance Care Planning - Time spent: 1-15 minutes, on File ([id number]) Advance Care Planning Advance Care Planning discussion: On file, no changes Date of discussion: 08/18/25 Forms completed: MOLST Time spent: 1-15 minutes, on File Actual minutes spent: 1
[2025-08-18 10:19] VITALS: BP 130/78; PULSE 64; TEMP 36.4; O2SAT 96; BMI 25.5
--- OUTSIDE RECORDS SUMMARY | 2025-08-18 11:51 | XMS_ITS | Patient Health Record ---
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) Active confirmed Problem Pain in limb (99278145) Pain in Limb (729.5) Active confirmed Problem Tailors bunion (3683314) Tailors Bunion (727.1) Active confirmed Plan Of Treatment No Information Insurance Providers Payer Name Payer Address Payer Phone Subscriber Number Group Number Insured Name Patient Relationship to Insured Coverage Start Date Coverage End Date [facility] [id number] [place] [address] [id number] He Arce Spouse - patient is the spouse of the insured 9 Medical (General) History Medical History History ICD Code osteoarthritis chicken pox measles Surgical History Surgery Date(Month/Year) gall bladder 2005
== END 2025-08-18 10:55 | disposition home or self-care (01) ==
PROVIDERS: PCP Physician Assistant; Visit Provider Physician Assistant
DX: Z00.00 Encounter for general adult medical examination without abnormal findings (principal); E78.2 Mixed hyperlipidemia

== ENCOUNTER 2025-08-30 11:19 | Outpatient (AMB) | payer MEDICARE, BC, OTHER, SELFPAY ==
--- NOTE | 2025-08-30 11:27 | A.OFFVIS_ITS ---
Intake Visit Reasons: 1 Year US Intake Note: Patient is present for Ultrasound follow up Urology Med: Vitamin B6 Antibiotic Allergy: None Blood Thinner: None Imaging : Abd CT 07/15/25 Data Center Technician Required: No Accompanied by: Self / Same As Patient Allergies No Known Allergies (No Known Allergies*) Allergy (Verified 08/30/25 11:28) HPI Comments Details: Evlira is a pleasant female. She is a patient of Dr. Mcdonough. She is seen for the following urologic conditions - nephrolithiasis Yearly follow-up Has CT scan which shows imbedded stone left kidney Confirm prior scarring to kidney Repeat imaging in 12 month Nephrolithiasis Interventions - spring 2019 left ureteroscopy with stent - 01/31 left ESWL - 01/02 Left ESWL Imaging - 07/02 ultrasound small left renal stone - 12/31 ultrasound 6 mm left renal stone - 08/03 renal ultrasound left cortical thinning, 2 x 6 mm stones - 11/04 KUB faint 5 mm left - 01/02 renal ultrasound bilateral small cysts no stones - 11/04 renal ultrasound and KUB with faint 4 mm left - 02/02 renal US 2mm left - 08/05 renal 4mm - 08/06 CT scan with left cortical scarring and stone Therapeutic plan - increase fluid intake, lemon water, vitamin B6, oxalate avoidance PFSH Medical History Cough COVID-19 Preop exam for internal medicine Allergic rhinitis Hypertriglyceridemia History of ARDS Osteoarthritis of right patellofemoral joint Restless leg syndrome Retained ureteral stent History of kidney stones Renal stones Iliotibial band syndrome, right leg Surgical History History of esophagogastroduodenoscopy (EGD) Hx of left breast biopsy Hx of colonoscopy Hx of lithotripsy History of cholecystectomy Family History Father No problems noted. Mother No problems noted. Social History Housing: House Alcohol intake: current Patient Tobacco Use Status: Former Tobacco user Years Smoked: quit 1999 e-Cigarette/Vaping Use: Never Used service: No Current occupational status: retired Cognitive needs: No Hearing needs: No Vision needs: No Review of Systems Const Denies chills and Denies fever(s) Card Reports no additional complaints and Denies syncope Resp Denies cough GI Denies abdominal pain and Denies heartburn Reports as per HPI and Denies change in libido Neuro Denies syncope Psych Denies change in libido Endo Denies change in libido Physical Exam Const General: cooperative, healthy appearing, comfortable and no acute distress Orientation/consciousness: patient oriented x3 HEENT Face and sinus: Yes normal facial exam Mouth: moist mucous membranes Neck Neck: Yes normal visual inspection, Yes full ROM and Yes trachea midline Chest Chest palpation & inspection: normal inspection of the chest Resp Effort & Inspection: normal respiratory effort, able to speak in complete sentences and no respiratory distress GI Inspection: Yes normal to inspection Back/Spine/Pelvis Cervical Spine: normal cervical lordosis Thoracic/Lumbar Spine: thoracic and lumbar spine normal to inspection Skin General skin exam: no rashes or lesions noted Neuro General: patient oriented x3, gait normal, tone normal and moves all extremities Extrem General: Yes normal to inspection and Yes capillary refill normal Assessment & Plan Assessment & Plan (1) Renal stones: Code(s): N20.0 - Calculus of kidney Category: Medical Plan Interval surveillance Orders: Orders US renal BI 12 Months N20.0 - Calculus of kidney Patient Instructions: This note is constructed using voice recognition software. While every effort has been made to ensure accuracy junior graphic designer errors may have been included. Imaging studies, laboratory and physical exam results were discussed and reviewed in detail. No major barriers to patient understanding were identified. An opportunity to ask questions regarding the treatment plan was provided. All questions were answered. The patient expressed understanding and agreement with the above treatment plan. The patient is aware they should contact our office by phone for worsening of their current condition or the appearance of new urologic symptoms. Compliance is encouraged with any medications and followup testing that is ordered. It is a privilege to participate in the urologic care of your patient. If you have any questions or concerns regarding treatment for the above conditions, or other urologic issues, please do not hesitate to contact me. The office telephone contact is [phone]. Sincerely, Dr Gilles Banks MD, PAKO [facility] - Urology Compassionate Specialist Care for the Genitourinary System Coding Level of Care Code Est Pt Level 4 (98206) Diagnoses Renal stones N20.0
== END 2025-08-30 11:54 | disposition home or self-care (01) ==
LOC: HO.HUSH 11:20
PROVIDERS: PCP Physician Assistant; Visit Provider Urology
DX: N20.0 Calculus of kidney (principal)
CPT/HCPCS: 99214

== ENCOUNTER → 2025-08-30 11:19 | Outpatient (BNVA) | payer MEDICARE, BC, OTHER, SELFPAY | PROVIDERS: PCP Physician Assistant; Visit Provider Urology | DX: N20.0 Calculus of kidney (principal) | CPT/HCPCS: 99212 ==

== ENCOUNTER 2025-09-15 09:21 | Outpatient (AMB) | payer MEDICARE, BC, OTHER, SELFPAY ==
--- NOTE | 2025-09-15 09:35 | MHC.OFFVIS ---
Vital Signs 09/15/25 09:36 Height 5 ft 4 in Weight 145 lb BMI 24.9 BP 106/70 Blood Pressure Location Lt brachial Position Sitting Pulse 68 Intake Visit Reasons: Follow up diverticulitis ( Pt) Intake Note: Patient complex follow up for Follow up diverticulitis (JM Pt) loulou was 07/2023 and last EGD/Colonoscopy was 07/[address] Escoto with 5 yrs recall. Patient cc: abdominal pain with bloating, denies any other GI issues for today viist. Food Safety Technician Required: No Accompanied by: Self / Same As Patient Allergies No Known Allergies (No Known Allergies*) Allergy (Verified 09/15/25 09:35) Medication List - Last Reconciled 09/15/25 by Zulma Baxter CNP acetaminophen (Tylenol) 325 mg PO QID PRN atorvastatin (Lipitor) 10 mg PO DAILY 90 days pregabalin 75 mg PO DAILY 90 days pyridoxine (vitamin B6) 50 mg PO DAILY 90 days tizanidine 2 mg PO BID PRN HPI HPI Follow up diverticulitis ( Pt): Details: Patient is a 69-year-old female with PMH of hyperlipidemia, chronic pain syndrome. Last visit with [facility]IE aDng 07/30/2023 for post-procedure follow up. Follow-up after ED-treated left-sided diverticulitis and persistent left abdominal pain; questions regarding recurrence risk and ongoing management. The patient presents approximately two months following an emergency department visit for acute diverticulitis localized to the left lower quadrant, confirmed via CT scan, and treated with Augmentin and a clear liquid diet. Since the acute episode, there has been gradual improvement. Current symptoms include occasional discomfort, not always associated with meals, and described as mild abdominal pain intermittently localized to the left lower abdomen, as well as a recent episode of feeling off after consuming rich food (e.g., salmon). Most days, bowel movements occur daily, though there is occasional sensation of incomplete evacuation, which she self-manages with increased dietary fiber. Symptoms are aggravated by certain foods, such as steak and rich or heavy meals, and are improved by dietary avoidance and hydration. She denies current use of acid suppression therapy for reflux, as lifestyle modification has been effective. Notable comorbidities include hyperlipidemia (on statin), chronic kidney stone history, and use of NSAIDs for arthritis pain. Recent labs showed transient leukocytosis at time of diverticulitis, normal kidney function, no anemia, and a mildly elevated liver enzyme attributed to extrinsic causes (consistent with statin use or other). No personal or family history of GI malignancy. Patient denies: fever/chills, n/v, appetite changes, pyrosis, regurgitation,dysphasia, unintentional wt loss or melena/hematochezia. Social hx: -ETOH use Rare, ~1 glass wine every several months when dining out -denies recreational drug use -former light smoker, cessation 20 years ago - family hx as below -denies personal hx of CA -denies significant cardiopulmonary history PFSH Medical History Cough COVID-19 Preop exam for internal medicine Allergic rhinitis Hypertriglyceridemia History of ARDS Osteoarthritis of right patellofemoral joint Restless leg syndrome Retained ureteral stent History of kidney stones Renal stones Iliotibial band syndrome, right leg Surgical History History of esophagogastroduodenoscopy (EGD) Hx of left breast biopsy Hx of colonoscopy Hx of lithotripsy History of cholecystectomy Family History Father No problems noted. Mother No problems noted. Social History Housing: House Alcohol intake: current Patient Tobacco Use Status: Former Tobacco user Years Smoked: quit 1999 e-Cigarette/Vaping Use: Never Used service: No Current occupational status: retired Cognitive needs: No Hearing needs: No Vision needs: No Review of Systems Const Reports as per HPI ENT Reports as per HPI Card Reports as per HPI Resp Reports as per HPI GI Reports as per HPI Reports as per HPI Physical Exam Vital Signs: Last Vital Signs Pulse 68 09/15/25 09:36 BP 106/70 09/15/25 09:36 BMI result Body Mass Index 24.9 Const General: healthy appearing, no acute distress and well developed Nutritional Appearance: average body habitus Orientation/consciousness: patient oriented x3 HEENT Head: Yes normal to inspection, Yes normocephalic and Yes atraumatic Face and sinus: Yes normal facial exam Eyes General: appearance normal, both eyes and all related structures Neck Neck: Yes normal visual inspection Resp Effort & Inspection: normal respiratory effort, able to speak in complete sentences, no tracheal deviation and symmetric chest movement Cardio Jugular venous distension: no JVD GI Inspection: Yes normal to inspection and No distended Palpation (GI): Soft to palpation, not firm, nontender and No hepatosplenomegaly present Auscultation: normal bowel sounds Neuro General: patient oriented x3 Gait exam (Neuro): Normal gait present Psych Appearance: grossly normal Mental Status: mental status grossly normal Speech and movement: Normal speech and movement present Affect: normal affect Attitude: cooperative Thought process: Normal thought process present Thought content: Normal thought content present Insight: Good insight present (Psych) Judgement: Good judgement present (Psych) Results Reviewed Results Reviewed: Date of Service: 07/15/25 Procedure(s): CT abdomen pelvis w IV con Accession Number(s): [id number] cc: Scarlett Watson DO; Francesco Mcdonough PA-C~ Report Number: [id number]: Total DLP = 495.00 mGy-cm Reason for Exam: LLQ pain EXAMINATION: CT ABDOMEN AND PELVIS WITH CONTRAST CLINICAL INFORMATION: Left lower quadrant abdominal pain COMPARISON: 10/25/2019. TECHNIQUE: Multidetector volumetric images were obtained from the superior aspect of the liver through the pubic symphysis following administration 85 mL of Omnipaque 350 intravenous contrast. Sagittal and coronal reformatted images were obtained on the technologist's workstation. Oral contrast: No This CT examination was performed using dose optimization techniques as appropriate, variously including the following: *Automated exposure control *Adjustment of mA and/or kV according to patient size (this includes techniques or standardized protocols for targeted exams where dose is matched to indication/reason for exam; i.e. extremities or head) *Use of iterative reconstruction technique FINDINGS: LUNG BASES: Lung bases are essentially clear. There is minimal subtle pleural scarring in both costophrenic sulci. Heart size is normal. No pericardial effusion. Mild pectus excavatum. LIVER, GALLBLADDER, AND BILIARY TREE: The liver is normal in size, shape, and attenuation. No focal hepatic lesion or intrahepatic biliary ductal dilatation is present. Mild prominence of the extrahepatic bile ducts likely secondary to reservoir effect from cholecystectomy. Gallbladder is surgically absent. PANCREAS: Unremarkable. SPLEEN: Unremarkable. ADRENAL GLANDS: Unremarkable. KIDNEYS AND URETERS: Left kidney demonstrates focal mid and inferior pole scarring. No hydronephrosis or mass. There is a nonobstructing 6 mm calculus in the midpole. The left ureter is nondilated. Right kidney demonstrates no evidence of hydronephrosis, mass, or calculus. The right ureter is nondilated. BLADDER: Unremarkable. GASTROINTESTINAL TRACT: There is extensive diverticulosis of the colon, involving both the right and left hemicolon, most severe in the sigmoid region. There is focal inflammation of the mid descending colon where there is an enhancing diverticulum, and mild associated colonic wall thickening and pericolonic inflammation. Findings are consistent with uncomplicated acute diverticulitis. There is no rectal abnormality. A normal appendix is visualized. The small bowel is normal in caliber and course. No wall thickening or inflammation. The stomach is decompressed. The duodenal sweep is normal. PERITONEUM: No free air or ascites. ABDOMINAL WALL: No significant hernia is appreciated. LYMPH NODES: There is no abnormal lymphadenopathy present. VASCULAR: Moderate atheromatous calcification of the aorta and iliac arteries. There is no aneurysm present. PELVIC VISCERA: The uterus and adnexa are unremarkable. OSSEOUS STRUCTURES: There is no suspicious lytic or blastic bone lesion. There is a mild levoconvex scoliosis of the lumbar spine with moderate to severe multilevel spondylosis. Sclerosis of the endplates is present at L2-3, L4-5, and L5-S1. Disc vacuum phenomenon is present spanning L2-S1. Mild degenerative changes in both hip joints. CT/CT abdomen pelvis w IV con IMPRESSION: 1. Acute non-complicated diverticulitis of the mid descending colon. 2. Extensive diverticulosis of the entire colon. 3. Nonobstructing left nephrolithiasis. 4. Additional ancillary findings as discussed in the body of the report. Operative Note Date of Service: 07/16/23 Narrative: Operative Information Procedure Description: EGD, Colonoscopy Indication: screening, hx of reflux Anesthesia: [facility] FLEXIBLE TRANSORAL UPPER GASTROINTESTINAL ENDOSCOPY AND COLONOSCOPY PROCEDURE NOTE UPPER ENDOSCOPY Consent: Indications for the procedure and potential complications of bleeding, perforation, reaction to medications and missed diagnosis were discussed with the patient and informed consent was obtained. Instrument: Olympus GIF H 190 J mid size upper endoscope Monitoring: Vital signs and clinical assessment, continuous EKG monitoring, Pulse oximetry, Carbon Dioxide monitoring and blood pressure monitoring were done throughout the procedure. Procedure: The patient was placed in the left lateral decubitis position and pre-procedure medications were administered and a bite block was placed. The endoscope was inserted into the mouth and advanced under direct vision to the third part of duodenum. A careful inspection was made as the upper endoscope was withdrawn including a retroflexed examination of the proximal stomach; Findings and interventions are described below. Findings: Larynx:normal Esophagus: GE junction at 37 cm, diaphragm hiatus at 37 cm, normal mucosa Stomach: Patchy erythema. Biopsies were obtained. Grade 2 flap valve on retroflexed examination of the cardia. Duodenum: Bulbar duodenitis, bx taken Intervention: Biopsies as noted above COLONOSCOPY Instrument: Olympus variable stiffness pediatric scope 190L Colonoscopy Monitoring: Vital signs and clinical assessment, continuous EKG monitoring, Pulse oximetry, Carbon Dioxide monitoring and blood pressure monitoring were done throughout the procedure. Colon withdrawal time was 17 minutes. Procedure: The patient was placed in the left lateral decubitis position and pre-procedure medications were administered. After a digital rectal examination of the ano-rectum, the video colonoscope was inserted into the rectum and advanced through the colon to the cecum/TI. The colonoscope was slowly withdrawn in a retrograde panoramic fashion and the colon mucosa was carefully examined including a retroflexed view of the rectum. Findings and interventions are described below. Procedure Difficulty:easy Findings: Terminal Ileum-normal Cecum: 5-7 mm sessile polyp removed with biopsy forceps Ascending Colon: scattered diverticula, Transverse Colon -normal Descending Colon: scattered diverticula Sigmoid Colon: severe diverticulosis, luminal narrowing and mucosal hypertrophy Rectum: Retroflexion with small internal hemorrhoids, grade I Anorectum - normal Colon preparation: [place] Bowel Preparation Scale Right colon; 2 Transverse colon: 2 Left colon; 1-2 (0 = Unprepared colon segment with mucosa not seen due to solid stool that cannot be cleared. 1 = Portion of mucosa of the colon segment seen, but other areas of the colon segment not well seen due to staining, residual stool and/or opaque liquid. 2 = Minor amount of residual staining, small fragments of stool and/or opaque liquid, but mucosa of colon segment seen well. 3 = Entire mucosa of colon segment seen well with no residual staining, small fragments of stool or opaque liquid) Impression and Post Procedure Diagnosis: Endoscopy Findings: gastritis duodenitis Colonoscopy Findings: polyp internal hemorrhoids diverticular disease Plan: Await Pathology results Repeat Colonoscopy in 5 years due to fair left sided prep or earlier if clinically indicated High fiber diet leaflet avoid straining at stool, epsom salts and sitz bath, anusol supps or cream if h pylori pos then treat, also on meloxicam which might explain gastritis Above findings were reviewed with the patient and relevant handouts were provided if indicated. PATHOLOGY: Collected: 07/16/23 Location: .[facility] Received: 07/16/23 Diagnosis A. Duodenum, biopsy: Chronic inactive duodenitis. B. Stomach, biopsy: Oxyntic mucosa with mild chronic inactive inflammation; no Helicobacter organisms seen. C. Cecum, polypectomy: Sessile serrated lesion/polyp; negative for cytologic dysplasia. Clinical History Pre-Op Dx: Reflux disease, colon cancer screening Post-Op Dx: Gastritis, duodenitis, diverticulosis, colon polyp, hemorrhoids Assessment & Plan Assessment & Plan (1) Diverticulosis of colon: Comment: 07/16/2023 colonoscopy complete with fair prep ( left colon)- diverticulosis (sigmoid, descending), luminal narrowing/mucosal hypertrophy (sigmoid), 5-7 mm SSP ( cecum), grade 1 internal hemorrhoids. Recommendations for repeat in 5 years (2027). Code(s): K57.30 - Diverticulosis of large intestine without perforation or abscess without bleeding Category: Medical Plan: Recent CT and colonoscopy confirm diverticulosis with recent episode of diverticulitis, ongoing mild intermittent abdominal discomfort post-treatment, no fever, no recurrence or red flag features. Additional Testing: None indicated at this visit; labs from July 2025 reassuring; liver enzyme to be monitored for trend as appropriate. Medication Management: Continue current statin. Minimize NSAID use due to risks of upper GI irritation?prefer acetaminophen for arthritis/headache. No antibiotics or GI-specific meds required presently. Lifestyle Recommendations: Maintain/increase fiber intake (whole grains, fruit, vegetables) and adequate hydration. Continue to avoid foods that clearly trigger symptoms. Encourage consumption of probiotics from food or supplements. Educate regarding clear liquid diet and signs for early contact if symptoms recur (pain, fever, intolerant of oral intake, new bloody stools). Follow-Up: Routine follow-up with GI not required unless symptom recurrence; ER reassessment recommended if pain is severe, persistent, or associated with fever, GI bleeding, or inability to maintain oral intake. Colonoscopy surveillance on 5-year interval (next due 2027). (2) Gastritis: Comment: 07/16/23 EGD-normal esophagus mucosa, gastritis, duodenitis Code(s): K29.70 - Gastritis, unspecified, without bleeding Category: Medical Qualifiers: Gastritis type: unspecified gastritis Chronicity: chronic Gastritis bleeding: without bleeding Qualified Code(s): K29.50 - Unspecified chronic gastritis without bleeding Plan: Remote episode of EGD-documented gastritis, currently no symptoms except rare transient discomfort after rich meals. Additional Testing: None indicated unless recurrence of significant sx. Medication Management: No acid-suppression required; continue to avoid triggers. Lifestyle Recommendations: Continue dietary identification and avoidance of aggravating foods; minimize NSAID use. Follow-Up: As needed for recurrent/refractory symptoms. Plan Follow-up 3 years (colo recall) or sooner as needed Time: I spent a total of 31 minutes on the date of encounter which includes: Preparing to see the patient (reviewed previous documentation, test results and medical history) Performing a medically appropriate exam and/or evaluation Ordering medications, tests, and procedures Documenting clinical information in the health record Coding Level of Care Code Established Pt Est Pt Level 4 (21316) Patient Type Established Diagnoses Diverticulosis of colon K57.30 Chronic gastritis without bleeding, unspecified gastritis type K29.50 Gastritis type: unspecified gastritis Chronicity: chronic Gastritis bleeding: without bleeding
[2025-09-15 09:36] VITALS: BP 106/70; PULSE 68; BMI 24.9
--- OUTSIDE RECORDS SUMMARY | 2025-09-15 10:30 | XMS_ITS | Patient Health Record ---
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) Flat Foot, Congenital (754.61) Active confirmed Problem Pain in limb (28672753) Pain in Limb (729.5) Active confirmed Problem Tailors bunion (6281508) Tailors Bunion (727.1) Active confirmed Plan Of Treatment No Information Insurance Providers Payer Name Payer Address Payer Phone Subscriber Number Group Number Insured Name Patient Relationship to Insured Coverage Start Date Coverage End Date [facility] [id number] [place] [address] [id number] He Arce Spouse - patient is the spouse of the insured 9 Medical (General) History Medical History History ICD Code osteoarthritis chicken pox measles Surgical History Surgery Date(Month/Year) gall bladder 2005
== END 2025-09-15 10:08 | disposition home or self-care (01) ==
LOC: HO.HGI 09:22
PROVIDERS: PCP Physician Assistant; Visit Provider Nurse Practitioner Family
DX: K57.30 Diverticulosis of large intestine without perforation or abscess without bleeding (principal); K29.50 Unspecified chronic gastritis without bleeding
CPT/HCPCS: 99214

== ENCOUNTER → 2025-09-15 09:21 | Outpatient (BNVA) | payer MEDICARE, BC, OTHER, SELFPAY | PROVIDERS: PCP Physician Assistant; Visit Provider Nurse Practitioner Family | DX: K57.30 Diverticulosis of large intestine without perforation or abscess without bleeding (principal); K29.50 Unspecified chronic gastritis without bleeding | CPT/HCPCS: 99212 ==